=== PATIENT | male | born 1960 | race Caucasian/White ===

== ENCOUNTER 2018-11-06 19:18 | Inpatient (IN) | payer OTHER ==
[~2018-11-06] VITALS: Ht 180.3 cm; Wt 79.0 kg
[2018-11-06] MEDS ORDERED: IV NORMAL SALINE 500ML BAG 500 ML IV ONE (19:45)
[2018-11-06] MEDS ORDERED: fentaNYL PF VIAL 100 MCG/2 ML VIAL IV ONE (19:45)
[2018-11-06 19:52] LABS: BASO # 0.1 x10^3/uL (0.0-0.2); BASO % 1 % (0-3); EOS # 0.3 x10^3/uL (0.0-0.7); EOS % 3 % (0-3); HEMATOCRIT 41.9 % (39.0-53.0); HEMOGLOBIN 14.1 g/dL (13.0-17.5); LYMPH # 2.3 x10^3/uL (1.0-4.8); LYMPH % 19 % (24-48); MEAN CORPUSCULAR HEMOGLOBIN 31 pg (25-35); MEAN CORPUSCULAR HGB CONC 34 g/dL (31-37); MEAN CORPUSCULAR VOLUME 94 fL (79-100); MONO % 9 % (0-9); NEUT # 8.2 x10^3uL (1.8-7.7); NEUT % 69 % (31-73); PLATELET COUNT 328 x10^3/uL (140-400); RED BLOOD COUNT 4.48 x10^6/uL (4.30-5.70); RED CELL DISTRIBUTION WIDTH 13.8 % (11.5-14.5)
[2018-11-06 19:59] LABS: CALCIUM 8.6 mg/dL (8.5-10.1); CREATININE 1.1 mg/dL (0.7-1.3); GFR 68.3; POTASSIUM 3.7 mmol/L (3.5-5.1)
[2018-11-06] MEDS ORDERED: KETAMINE HCL IN NACL, ISO-OSM 50 MG/5 ML SYRINGE IV ONE (20:00)
[2018-11-06 20:02] LABS: PROTHROMBIN TIME PATIENT 12.8 SEC (11.7-14.0)
[2018-11-06 20:04] LABS: ALBUMIN/GLOBULIN RATIO 1.3 (1.0-1.7); TOTAL BILIRUBIN 0.4 mg/dL (0.2-1.0)
[2018-11-06] MEDS ORDERED: LIDOCAINE 2% 20 ML VIAL. ONE (20:18)
[2018-11-06] MEDS ORDERED: IV NORMAL SALINE 1000ML BAG 1,000 ML IV ONE (21:00)
[2018-11-06] MEDS ORDERED: LIDOCAINE 2% 20 ML VIAL. IJ ONE (21:15)
[2018-11-06 22:00] VITALS: BP 137/72
--- NOTE | 2018-11-06 22:00 | NUR ---
pt admitted to room 109 from ED at this time. pt is alert and oriented x4, able to answer all admission questions without difficulty. VSS, on 2L/NC. chest tube noted to right side, draining serosanguineous fluid and hooked to suction at -20 mmHg upon arrival. c/o pain at chest tube site upon movement, Morphine given per PRN order. at bedside, both updated on plan of care, unit routines, diet and chest tube maintenance. both verbalize understanding. call light in reach, will continue to monitor.
[2018-11-06] MEDS ORDERED: ONDANSETRON PF 4 MG/2 ML VIAL. IV PRN (22:15)
[2018-11-06] MEDS: MORPHINE SULFATE 4 MG/ML VIAL. IV PRN (22:19)
[2018-11-06 23:00] VITALS: BP 118/59
--- NOTE | 2018-11-06 23:41 | RAD ---
PORTABLE CHEST 1V History: chest tube Comparison: Exam earlier the same day Findings: There is now a right chest tube. Evaluation for pneumothorax is limited in supine patient, possible trace residual right apical pneumothorax. There is fairly extensive gas in the right lateral chest wall soft tissues as well as neck soft tissues as seen previously. Heart size is stable. Impression: 1. There is now a right chest tube, possible trace residual right apical pneumothorax. There is again prominent gas in the right lateral chest and neck soft tissues. Electronically signed by: Abelardo Gauthier MD (11/06/2018 11:38 PM) [facility]
--- NOTE | 2018-11-06 23:43 | RAD ---
PORTABLE CHEST 1V History: TRAUMA FALL OFF LADDER Comparison: None. Findings: AP view of the chest is submitted. There is a lsufi-yd-wstemghw size right pneumothorax. There is extensive gas in the right lateral chest and neck soft tissues. There are displaced sixth and seventh rib fractures laterally. Heart size is within normal limits. Impression: 1. There is dhiti-pr-mifwhvhz right pneumothorax. There is extensive gas in the right lateral neck and chest wall soft tissues. There are displaced right lateral sixth and seventh rib fractures. Right chest tube has already been placed at time of interpretation of this exam. Electronically signed by: Abelardo Gauthier MD (11/06/2018 11:40 PM) [facility]
[2018-11-06] MEDS: IV NORMAL SALINE 1000ML BAG 1,000 ML IV SCH (23:48)
[2018-11-07] VITALS (24 sets, daily range): BP systolic 104–119; BP diastolic 52–80
[2018-11-07] MEDS: MORPHINE SULFATE 4 MG/ML VIAL. IV PRN ×3 (00:39→07:47)
--- NOTE | 2018-11-07 02:46 | PHYS DOC ---
Past Medical History Past Medical History: No Pertinent History Past Surgical History: Other Additional Past Surgical Histo: HYDROCELE,LEFT URETER TRANSPLANT Additional Information: PT SMOKES CIGARS Alcohol Use: Occasionally Drug Use: None Adult General Chief Complaint Chief Complaint: MECHANICAL FALL HPI HPI Patient is a 58 year old m p/w cc of fall four feet off a six foot ladder. landed directly on the right chest. pain severe worse with deep breathing sharp biba denies headache neck pain abdominal pain or leg pain. Review of Systems Review of Systems Constitutional: Denies fever or chills [] Eyes: Denies change in visual acuity, redness, or eye pain [] HENT: Denies nasal congestion or sore throat [] Cardiovascular: No additional information not addressed in HPI [] GI: Denies abdominal pain, nausea, vomiting, bloody stools or diarrhea [] Musculoskeletal: Integument: Denies rash or skin lesions [] Neurologic: Denies headache, focal weakness or sensory changes [] All other systems were reviewed and found to be within normal limits, except as documented in this note. Current Medications Current Medications Current Medications Medications (Trade) Dose Ordered Sig/Vic Start Time Stop Time Status Last Admin Dose Admin Fentanyl Citrate (Fentanyl 2ml Vial) 50 mcg 1X ONCE 11/06/18 19:45 11/06/18 19:46 DC 11/06/18 20:32 50 MCG Ketamine HCl (Ketamine) 50 mg 1X ONCE 11/06/18 20:00 11/06/18 20:01 DC 11/06/18 20:15 50 MG Lidocaine HCl 20 ml STK-MED ONCE 11/06/18 20:18 11/06/18 20:19 DC Sodium Chloride 500 ml @ 500 mls/hr 1X ONCE 11/06/18 19:45 11/06/18 20:44 DC 11/06/18 20:02 500 MLS/HR Allergies Allergies Allergies Coded Allergies Type Severity Reaction Last Updated Verified No Known Drug Allergies 11/06/18 No Physical Exam Physical Exam Constitutional: Well developed, well nourished, modreate distress, non-toxic appearance. [] HENT: Normocephalic, atraumatic, bilateral external ears normal, oropharynx moist, no oral exudates, nose normal. [] Eyes: PERRLA, EOMI, conjunctiva normal, no discharge. [] Neck: Normal range of motion, no tenderness, supple, no stridor. [] Cardiovascular:Heart rate regular rhythm, no murmur [] Lungs & Thorax: decreased breath sounds right side. there is palpable bony crepitus, there is subq crepitus right chest. Abdomen: Bowel sounds normal, soft, no tenderness, no masses, no pulsatile masses. [] Skin: Warm, dry, no erythema, no rash. [] Back: ttp noted right posterior back in rib area. Extremities: No tenderness, no cyanosis, no clubbing, ROM intact, no edema. [] Neurologic: Alert and oriented X 3, normal motor function, normal sensory function, no focal deficits noted. [] Psychologic: Affect normal, judgement normal, mood normal. [] Current Patient Data Vital Signs Vital Signs Date Time Temp Pulse Resp B/P (MAP) Pulse Ox O2 Delivery O2 Flow Rate FiO2 11/06/18 20:45 96 100 11/06/18 20:32 18 NonRebreather Mask 12.0 11/06/18 19:18 97.0 127/66 (86) 97.0 Lab Values Laboratory Tests Test 11/06/18 19:33 White Blood Count 12.0 x10^3/uL (4.0-11.0) H Red Blood Count 4.48 x10^6/uL (4.30-5.70) Hemoglobin 14.1 g/dL (13.0-17.5) Hematocrit 41.9 % (39.0-53.0) Mean Corpuscular Volume 94 fL (79-100) Mean Corpuscular Hemoglobin 31 pg (25-35) Mean Corpuscular Hemoglobin Concent 34 g/dL (31-37) Red Cell Distribution Width 13.8 % (11.5-14.5) Platelet Count 328 x10^3/uL (140-400) Neutrophils (%) (Auto) 69 % (31-73) Lymphocytes (%) (Auto) 19 % (24-48) L Monocytes (%) (Auto) 9 % (0-9) Eosinophils (%) (Auto) 3 % (0-3) Basophils (%) (Auto) 1 % (0-3) Neutrophils # (Auto) 8.2 x10^3uL (1.8-7.7) H Lymphocytes # (Auto) 2.3 x10^3/uL (1.0-4.8) Monocytes # (Auto) 1.0 x10^3/uL (0.0-1.1) Eosinophils # (Auto) 0.3 x10^3/uL (0.0-0.7) Basophils # (Auto) 0.1 x10^3/uL (0.0-0.2) Prothrombin Time 12.8 SEC (11.7-14.0) Prothrombin Time INR 1.0 (0.8-1.1) Sodium Level 144 mmol/L (136-145) Potassium Level 3.7 mmol/L (3.5-5.1) Chloride Level 103 mmol/L (98-107) Carbon Dioxide Level 32 mmol/L (21-32) Anion Gap 9 (6-14) Blood Urea Nitrogen 12 mg/dL (8-26) Creatinine 1.1 mg/dL (0.7-1.3) Estimated GFR (Cockcroft-Gault) 68.3 BUN/Creatinine Ratio 11 (6-20) Glucose Level 152 mg/dL (70-99) H Calcium Level 8.6 mg/dL (8.5-10.1) Total Bilirubin 0.4 mg/dL (0.2-1.0) Aspartate Amino Transferase (AST) 108 U/L (15-37) H Alanine Aminotransferase (ALT) 83 U/L (16-63) H Alkaline Phosphatase 47 U/L (46-116) Total Protein 7.0 g/dL (6.4-8.2) Albumin 4.0 g/dL (3.4-5.0) Albumin/Globulin Ratio 1.3 (1.0-1.7) Laboratory Tests 11/06/18 19:33 Laboratory Tests 11/06/18 19:33 EKG EKG [] Radiology/Procedures Radiology/Procedures [] Impressions: Impression: 1. There is yywqw-yb-tpulkyzt right pneumothorax. There is extensive gas in the right lateral neck and chest wall soft tissues. There are displaced right lateral sixth and seventh rib fractures. Right chest tube has already been placed at time of interpretation of this exam. Electronically signed by: Melodie Brandt MD (11/06/2018 11:40 PM) [facility] DICTATED and SIGNED BY: MELODIE BRANDT MD DATE: 11/06/18 4962 Impression: 1. There is now a right chest tube, possible trace residual right apical pneumothorax. There is again prominent gas in the right lateral chest and neck soft tissues. Electronically signed by: Melodie Brandt MD (11/06/2018 11:38 PM) [facility] DICTATED and SIGNED BY: MELODIE BRANDT MD DATE: 11/06/18 9258 Course & Med Decision Making Course & Med Decision Making Pertinent Labs and Imaging studies reviewed. (See chart for details) []Procedure note: Informed consent was obtained and it was performed thoracostomy procedure. Area prepped and draped in usual sterile fashion right chest wall, septic and his lidocaine was used for anesthesia. 50 g iv ketamine was used for pain control prior to the procedure. fourth intercostal space inserted a 24 telugu chest tube in the usual fashion into the right pleural space sutured in place And with appropriate sterile dressing attached to suction repeat chest x-ray confirmed placement of chest tube as well as reexpansion of the lung. patient tolerated quite well overall. I spoke with Dr. velarde was recommended ICU admission overnight for monitoring and will follow-up with the patient. I spoke to Dr. Austin for admission to the hospital for this patient as well. I reevaluated him after the chest tube and the patient was feeling much better. Patient has no abdominal tenderness no abdominal pain and NO signs of head injury he did not hit his head he has no headache no neck tenderness at all. It appears that the rib and pneumothorax injury appears to be isolated at this time vital signs are normal after chest tube placement on reevaluation. Dragon Disclaimer Dragon Disclaimer This electronic medical record was generated, in whole or in part, using a voice recognition dictation system. Departure Departure Impression: Primary Impression: Pneumothorax Additional Impression: Rib fractures Disposition: ADMITTED INPATIENT Admitting Physician: Michelle Austin Condition: STABLE Referrals: AVEL KRUSE (PCP) Problem Qualifiers NELSON MURPHY MD Nov 07, 2018 02:46
[2018-11-07 05:36] LABS: BASO % 0 % (0-3); EOS # 0.1 x10^3/uL (0.0-0.7); EOS % 1 % (0-3); HEMATOCRIT 37.7 % (39.0-53.0); HEMOGLOBIN 12.8 g/dL (13.0-17.5); LYMPH # 1.6 x10^3/uL (1.0-4.8); LYMPH % 15 % (24-48); MEAN CORPUSCULAR HEMOGLOBIN 32 pg (25-35); MEAN CORPUSCULAR HGB CONC 34 g/dL (31-37); MEAN CORPUSCULAR VOLUME 93 fL (79-100); MONO # 1.5 x10^3/uL (0.0-1.1); MONO % 14 % (0-9); NEUT # 7.3 x10^3uL (1.8-7.7); NEUT % 70 % (31-73); PLATELET COUNT 259 x10^3/uL (140-400); RED BLOOD COUNT 4.04 x10^6/uL (4.30-5.70); RED CELL DISTRIBUTION WIDTH 14.1 % (11.5-14.5); WHITE BLOOD COUNT 10.5 x10^3/uL (4.0-11.0)
[2018-11-07] MEDS ORDERED: IOHEXOL 300 MG/ML 100ML VIAL. IV ONE (09:00)
[2018-11-07] MEDS ORDERED: IOHEXOL 240 MG/ML 50ML VIAL. PO ONE (09:00)
--- NOTE | 2018-11-07 09:07 | PDOC2 ---
CONSULT Date of Consult Date of Consult DATE: 11/07/18 TIME: 08:59 Reason for Consult Reason for Consult: Right PTX, multiple rib fractures Referring Physician Referring Physician: Norman Identification/Chief Complaint Chief Complaint right chest pain Source Source: Chart review, Patient History of Present Illness Reason for Visit: 58 yo M s/p fall off ladder, approximately 4 feet on 11/06 at approximately 1700. Pt landed on his ladder directly on right chest with sudden pain. No LOC. No head trauma or abd pain or extremity pain. This AM pt reports soreness , but otherwise doing well. Past Medical History Cardiovascular: No pertinent hx Past Surgical History Past Surgical History: Other (ureter reimplantation as child, unknown etiology) Family History Family History: No Significant Social History <1 pack per day (cigars) ALCOHOL: rare Current Problem List Problem List Problems Medical Problems: (1) Rib fractures Status: Acute Current Medications Current Medications Current Medications Sodium Chloride 500 ml @ 500 mls/hr 1X ONCE IV Last administered on at 20:02; Start 11/06/18 at 19:45; Stop 11/06/18 at 20:44; Status DC Fentanyl Citrate (Fentanyl 2ml Vial) 50 mcg 1X ONCE IV Last administered on at 20:32; Start 11/06/18 at 19:45; Stop 11/06/18 at 19:46; Status DC Ketamine HCl (Ketamine) 50 mg 1X ONCE IV Last administered on 11/06/18at 20:15 ; Start 11/06/18 at 20:00; Stop 11/06/18 at 20:01; Status DC Lidocaine HCl 20 ml STK-MED ONCE .ROUTE ; Start 11/06/18 at 20:18; Stop at 20:19; Status DC Sodium Chloride 1,000 ml @ 1,000 mls/hr 1X ONCE IV Last administered on at 20:14; Start 11/06/18 at 21:00; Stop 11/06/18 at 21:59; Status DC Lidocaine HCl 40 ml 1X ONCE IJ Last administered on 11/06/18at 20:16; Start at 21:15; Stop 11/06/18 at 21:16; Status DC Ondansetron HCl (Zofran) 4 mg PRN Q8HRS PRN IV NAUSEA/VOMITING; Start 11/06/18 at 22:15; Stop 11/07/18 at 22:14 Morphine Sulfate (Morphine Sulfate) 4 mg PRN Q2HR PRN IV PAIN Last administered on 11/07/18at 07:47; Start 11/06/18 at 22:15; Stop 11/07/18 at 22:14 Sodium Chloride 1,000 ml @ 75 mls/hr [id number] IV Last administered on at 23:48; Start 11/06/18 at 22:15; Stop 11/07/18 at 22:14 Iohexol (Omnipaque 240 Mg/ml) 30 ml 1X ONCE PO ; Start 11/07/18 at 09:00; Stop 11/07/18 at 09:01 Iohexol (Omnipaque 300 Mg/ml) 75 ml 1X ONCE IV ; Start 11/07/18 at 09:00; Stop 11/07/18 at 09:01 Allergies Allergies: Coded Allergies: No Known Drug Allergies (Unverified , 11/06/18) ROS Respiratory: YES: Pleuritic Pain Physical Exam General: Alert, Oriented X3, Cooperative, No acute distress HEENT: Atraumatic Lungs: Normal air movement, Other (right tube in place, TTP) Abdomen: Soft, No tenderness Extremities: No clubbing, No cyanosis Skin: No rashes, No breakdown Neuro: Normal speech, Sensation intact Psych/Mental Status: Mental status NL, Mood NL Vitals VITALS Vital Signs Date Time Temp Pulse Resp B/P (MAP) Pulse Ox O2 Delivery O2 Flow Rate FiO2 11/07/18 08:20 96 Nasal Cannula 2.0 11/07/18 07:30 99.3 71 19 108/60 (76) 99.3 Labs Labs Laboratory Tests Test 11/06/18 19:33 11/07/18 04:00 White Blood Count 12.0 x10^3/uL (4.0-11.0) 10.5 x10^3/uL (4.0-11.0) Red Blood Count 4.48 x10^6/uL (4.30-5.70) 4.04 x10^6/uL (4.30-5.70) Hemoglobin 14.1 g/dL (13.0-17.5) 12.8 g/dL (13.0-17.5) Hematocrit 41.9 % (39.0-53.0) 37.7 % (39.0-53.0) Mean Corpuscular Volume 94 fL (79-100) 93 fL (79-100) Mean Corpuscular Hemoglobin 31 pg (25-35) 32 pg (25-35) Mean Corpuscular Hemoglobin Concent 34 g/dL (31-37) 34 g/dL (31-37) Red Cell Distribution Width 13.8 % (11.5-14.5) 14.1 % (11.5-14.5) Platelet Count 328 x10^3/uL (140-400) 259 x10^3/uL (140-400) Neutrophils (%) (Auto) 69 % (31-73) 70 % (31-73) Lymphocytes (%) (Auto) 19 % (24-48) 15 % (24-48) Monocytes (%) (Auto) 9 % (0-9) 14 % (0-9) Eosinophils (%) (Auto) 3 % (0-3) 1 % (0-3) Basophils (%) (Auto) 1 % (0-3) 0 % (0-3) Neutrophils # (Auto) 8.2 x10^3uL (1.8-7.7) 7.3 x10^3uL (1.8-7.7) Lymphocytes # (Auto) 2.3 x10^3/uL (1.0-4.8) 1.6 x10^3/uL (1.0-4.8) Monocytes # (Auto) 1.0 x10^3/uL (0.0-1.1) 1.5 x10^3/uL (0.0-1.1) Eosinophils # (Auto) 0.3 x10^3/uL (0.0-0.7) 0.1 x10^3/uL (0.0-0.7) Basophils # (Auto) 0.1 x10^3/uL (0.0-0.2) 0.0 x10^3/uL (0.0-0.2) Prothrombin Time 12.8 SEC (11.7-14.0) Prothromb Time International Ratio 1.0 (0.8-1.1) Sodium Level 144 mmol/L (136-145) Potassium Level 3.7 mmol/L (3.5-5.1) Chloride Level 103 mmol/L (98-107) Carbon Dioxide Level 32 mmol/L (21-32) Anion Gap 9 (6-14) Blood Urea Nitrogen 12 mg/dL (8-26) Creatinine 1.1 mg/dL (0.7-1.3) Estimated GFR (Cockcroft-Gault) 68.3 BUN/Creatinine Ratio 11 (6-20) Glucose Level 152 mg/dL (70-99) Calcium Level 8.6 mg/dL (8.5-10.1) Total Bilirubin 0.4 mg/dL (0.2-1.0) Aspartate Amino Transf (AST/SGOT) 108 U/L (15-37) Alanine Aminotransferase (ALT/SGPT) 83 U/L (16-63) Alkaline Phosphatase 47 U/L (46-116) Total Protein 7.0 g/dL (6.4-8.2) Albumin 4.0 g/dL (3.4-5.0) Albumin/Globulin Ratio 1.3 (1.0-1.7) Laboratory Tests Test 11/06/18 19:33 11/07/18 04:00 White Blood Count 12.0 x10^3/uL (4.0-11.0) 10.5 x10^3/uL (4.0-11.0) Red Blood Count 4.48 x10^6/uL (4.30-5.70) 4.04 x10^6/uL (4.30-5.70) Hemoglobin 14.1 g/dL (13.0-17.5) 12.8 g/dL (13.0-17.5) Hematocrit 41.9 % (39.0-53.0) 37.7 % (39.0-53.0) Mean Corpuscular Volume 94 fL (79-100) 93 fL (79-100) Mean Corpuscular Hemoglobin 31 pg (25-35) 32 pg (25-35) Mean Corpuscular Hemoglobin Concent 34 g/dL (31-37) 34 g/dL (31-37) Red Cell Distribution Width 13.8 % (11.5-14.5) 14.1 % (11.5-14.5) Platelet Count 328 x10^3/uL (140-400) 259 x10^3/uL (140-400) Neutrophils (%) (Auto) 69 % (31-73) 70 % (31-73) Lymphocytes (%) (Auto) 19 % (24-48) 15 % (24-48) Monocytes (%) (Auto) 9 % (0-9) 14 % (0-9) Eosinophils (%) (Auto) 3 % (0-3) 1 % (0-3) Basophils (%) (Auto) 1 % (0-3) 0 % (0-3) Neutrophils # (Auto) 8.2 x10^3uL (1.8-7.7) 7.3 x10^3uL (1.8-7.7) Lymphocytes # (Auto) 2.3 x10^3/uL (1.0-4.8) 1.6 x10^3/uL (1.0-4.8) Monocytes # (Auto) 1.0 x10^3/uL (0.0-1.1) 1.5 x10^3/uL (0.0-1.1) Eosinophils # (Auto) 0.3 x10^3/uL (0.0-0.7) 0.1 x10^3/uL (0.0-0.7) Basophils # (Auto) 0.1 x10^3/uL (0.0-0.2) 0.0 x10^3/uL (0.0-0.2) Prothrombin Time 12.8 SEC (11.7-14.0) Prothromb Time International Ratio 1.0 (0.8-1.1) Sodium Level 144 mmol/L (136-145) Potassium Level 3.7 mmol/L (3.5-5.1) Chloride Level 103 mmol/L (98-107) Carbon Dioxide Level 32 mmol/L (21-32) Anion Gap 9 (6-14) Blood Urea Nitrogen 12 mg/dL (8-26) Creatinine 1.1 mg/dL (0.7-1.3) Estimated GFR (Cockcroft-Gault) 68.3 BUN/Creatinine Ratio 11 (6-20) Glucose Level 152 mg/dL (70-99) Calcium Level 8.6 mg/dL (8.5-10.1) Total Bilirubin 0.4 mg/dL (0.2-1.0) Aspartate Amino Transf (AST/SGOT) 108 U/L (15-37) Alanine Aminotransferase (ALT/SGPT) 83 U/L (16-63) Alkaline Phosphatase 47 U/L (46-116) Total Protein 7.0 g/dL (6.4-8.2) Albumin 4.0 g/dL (3.4-5.0) Albumin/Globulin Ratio 1.3 (1.0-1.7) Images Images CXR demonstrated right 6/7 rib fracture, PTX, resolved with tube placement Assessment/Plan Assessment/Plan R PTX, rib fx, multiple agree with chest tube and pain control will obtain CT C/A/P to evaluate for occult injury, given mechanism if no occult injury, plan transfer to floor and ADAT Thanks for consult! CAIT MARTINEZ MD Nov 07, 2018 09:07
--- NOTE | 2018-11-07 10:12 | PDOC1 ---
History and Physical Date of Admission Date of Admission DATE: 11/07/18 TIME: 10:12 Identification/Chief Complaint Chief Complaint HPI HPI Patient is a 58 year old m p/w cc of fall four feet off a six foot ladder. landed directly on the right chest. pain severe worse with deep breathing// prominent gas in the right lateral chest and neck soft tissues. There is ngsq-jg-epnolgoh left hydroureteronephrosis, no obstructive calculus, distal ureter in the pelvis difficult to visualize. Distal obstructing ureteral mass or stricture are considerations. There is pneumomediastinum greater superiorly. There is trace right apical pneumothorax. There is prominent gas in the soft tissues of the right chest also extending posteriorly into the upper back as well as the inferior bilateral neck right greater than left. There is small dependent right pleural effusion, adjacent consolidation and atelectasis There is dilatation of the ascending thoracic aorta about 4.7 cm, no intraluminal flap seen [id number] left hydronephrosis and hydroureter, hydroureter to the level of the pelvis, more distal left ureter difficult to confidently visualize. PLAN PULM consult CTS consult urology consult ua renal son eval hydronephrosis keep in icu 40 min cc time Past Medical History Past Medical History Past Medical History Past Medical History Past Medical History: No Pertinent History Past Surgical History: Other Additional Past Surgical Histo: HYDROCELE,LEFT URETER TRANSPLANT Additional Information: PT SMOKES CIGARS Alcohol Use: Occasionally Drug Use: None family hx copd Cardiovascular: No pertinent hx Past Surgical History Past Surgical History: Other (ureter reimplantation as child, unknown etiology) Family History Family History: No Significant Social History Smoke: <1 pack per day (cigars) ALCOHOL: occassional Drugs: None Current Problem List Problem List Problems Medical Problems: (1) Rib fractures Status: Acute Current Medications Current Medications Current Medications Sodium Chloride 500 ml @ 500 mls/hr 1X ONCE IV Last administered on at 20:02; Start 11/06/18 at 19:45; Stop 11/06/18 at 20:44; Status DC Fentanyl Citrate (Fentanyl 2ml Vial) 50 mcg 1X ONCE IV Last administered on at 20:32; Start 11/06/18 at 19:45; Stop 11/06/18 at 19:46; Status DC Ketamine HCl (Ketamine) 50 mg 1X ONCE IV Last administered on 11/06/18at 20:15 ; Start 11/06/18 at 20:00; Stop 11/06/18 at 20:01; Status DC Lidocaine HCl 20 ml STK-MED ONCE .ROUTE ; Start 11/06/18 at 20:18; Stop at 20:19; Status DC Sodium Chloride 1,000 ml @ 1,000 mls/hr 1X ONCE IV Last administered on at 20:14; Start 11/06/18 at 21:00; Stop 11/06/18 at 21:59; Status DC Lidocaine HCl 40 ml 1X ONCE IJ Last administered on 11/06/18at 20:16; Start at 21:15; Stop 11/06/18 at 21:16; Status DC Ondansetron HCl (Zofran) 4 mg PRN Q8HRS PRN IV NAUSEA/VOMITING; Start 11/06/18 at 22:15; Stop 11/07/18 at 22:14 Morphine Sulfate (Morphine Sulfate) 4 mg PRN Q2HR PRN IV PAIN Last administered on 11/07/18at 07:47; Start 11/06/18 at 22:15; Stop 11/07/18 at 22:14 Sodium Chloride 1,000 ml @ 75 mls/hr [id number] IV Last administered on at 23:48; Start 11/06/18 at 22:15; Stop 11/07/18 at 22:14 Iohexol (Omnipaque 240 Mg/ml) 30 ml 1X ONCE PO ; Start 11/07/18 at 09:00; Stop 11/07/18 at 09:01; Status DC Iohexol (Omnipaque 300 Mg/ml) 75 ml 1X ONCE IV ; Start 11/07/18 at 09:00; Stop 11/07/18 at 09:01; Status DC Allergies Allergies: Coded Allergies: No Known Drug Allergies (Unverified , 11/06/18) ROS Review of System Review of Systems Review of Systems Constitutional: Denies fever or chills [] Eyes: Denies change in visual acuity, redness, or eye pain [] HENT: Denies nasal congestion or sore throat [] Cardiovascular: No additional information not addressed in HPI [] GI: Denies abdominal pain, nausea, vomiting, bloody stools or diarrhea [] Musculoskeletal: Integument: Denies rash or skin lesions [] Neurologic: Denies headache, focal weakness or sensory changes [] 14 pt systems were reviewed and found to be within normal limits, except as documented in this note. General: No: Chills, Night Sweats, Fatigue, Malaise, Appetite, Other PSYCHOLOGICAL ROS: No: Anxiety, Behavioral Disorder, Concentration difficultie , Decreased libido, Depression, Disorientation, Hallucinations, Hostility, Irritablity, Memory difficulties, Mood Swings, Obsessive thoughts, Physical abuse, Sexual abuse, Sleep disturbances, Suicidal ideation, Other Eyes: No Blurry vision, No Decreased vision, No Double vision, No Dry eyes, No Excessive tearing, No Eye Pain, No Itchy Eyes, No Loss of vision, No Photophobia , No Scotomata, No Uses contacts, No Uses glasses, No Other HEENT: No: Heacaches, Visual Changes, Hearing change, Nasal congestion, Nasal discharge, Oral lesions, Sinus pain, Sore Throat, Epistaxis, Sneezing, Snoring, Tinnitus, Vertigo, Vocal changes, Other Respiratory: YES: Pleuritic Pain Cardiovascular: yes Chest Pain Gastrointestinal: No Nausea, No Vomiting, No Abdominal Pain, No Diarrhea, No Constipation, No Melena, No Hematochezia, No Other Genitourinary: No Dysuria, No Frequency, No Incontinence, No Hematuria, No Retention, No Discharge, No Urgency, No Pain, No Flank Pain, No Other, No , No , No , No , No , No , No Physical Exam Physical Exam Physical Exam Physical Exam Constitutional: Well developed, well nourished, modreate distress, non-toxic appearance. [] HENT: Normocephalic, atraumatic, bilateral external ears normal, oropharynx moist, no oral exudates, nose normal. [] Eyes: PERRLA, EOMI, conjunctiva normal, no discharge. [] Neck: Normal range of motion, no tenderness, supple, no stridor. [] Cardiovascular:Heart rate regular rhythm, no murmur [] Lungs & Thorax: decreased breath sounds right side. there is palpable bony crepitus, there is subq crepitus right chest. Abdomen: Bowel sounds normal, soft, no tenderness, no masses, no pulsatile masses. [] Skin: Warm, dry, no erythema, no rash. [] Back: ttp noted right posterior back in rib area. Extremities: No tenderness, no cyanosis, no clubbing, ROM intact, no edema. [] Neurologic: Alert and oriented X 3, normal motor function, normal sensory function, no focal deficits noted. [] Psychologic: Affect normal, judgement normal, mood normal. prominent gas in the right lateral chest and neck soft tissues. [] General: Alert, Oriented X3, Cooperative, moderate distress HEENT: EOMI, Mucous membr. moist/pink Heart: RRR Abdomen: Normal bowel sounds, Soft PELVIC: Examination not indicated Extremities: No cyanosis Neuro: Normal speech, Sensation intact, Cranial nerves 3-12 NL Psych/Mental Status: Mental status NL, Mood NL Vitals Vitals Vital Signs Date Time Temp Pulse Resp B/P (MAP) Pulse Ox O2 Delivery O2 Flow Rate FiO2 11/07/18 09:24 99.3 72 21 119/74 (89) 97 Nasal Cannula 2.0 99.3 Labs Labs Laboratory Tests Test 11/06/18 19:33 11/07/18 04:00 White Blood Count 12.0 x10^3/uL (4.0-11.0) 10.5 x10^3/uL (4.0-11.0) Red Blood Count 4.48 x10^6/uL (4.30-5.70) 4.04 x10^6/uL (4.30-5.70) Hemoglobin 14.1 g/dL (13.0-17.5) 12.8 g/dL (13.0-17.5) Hematocrit 41.9 % (39.0-53.0) 37.7 % (39.0-53.0) Mean Corpuscular Volume 94 fL (79-100) 93 fL (79-100) Mean Corpuscular Hemoglobin 31 pg (25-35) 32 pg (25-35) Mean Corpuscular Hemoglobin Concent 34 g/dL (31-37) 34 g/dL (31-37) Red Cell Distribution Width 13.8 % (11.5-14.5) 14.1 % (11.5-14.5) Platelet Count 328 x10^3/uL (140-400) 259 x10^3/uL (140-400) Neutrophils (%) (Auto) 69 % (31-73) 70 % (31-73) Lymphocytes (%) (Auto) 19 % (24-48) 15 % (24-48) Monocytes (%) (Auto) 9 % (0-9) 14 % (0-9) Eosinophils (%) (Auto) 3 % (0-3) 1 % (0-3) Basophils (%) (Auto) 1 % (0-3) 0 % (0-3) Neutrophils # (Auto) 8.2 x10^3uL (1.8-7.7) 7.3 x10^3uL (1.8-7.7) Lymphocytes # (Auto) 2.3 x10^3/uL (1.0-4.8) 1.6 x10^3/uL (1.0-4.8) Monocytes # (Auto) 1.0 x10^3/uL (0.0-1.1) 1.5 x10^3/uL (0.0-1.1) Eosinophils # (Auto) 0.3 x10^3/uL (0.0-0.7) 0.1 x10^3/uL (0.0-0.7) Basophils # (Auto) 0.1 x10^3/uL (0.0-0.2) 0.0 x10^3/uL (0.0-0.2) Prothrombin Time 12.8 SEC (11.7-14.0) Prothromb Time International Ratio 1.0 (0.8-1.1) Sodium Level 144 mmol/L (136-145) Potassium Level 3.7 mmol/L (3.5-5.1) Chloride Level 103 mmol/L (98-107) Carbon Dioxide Level 32 mmol/L (21-32) Anion Gap 9 (6-14) Blood Urea Nitrogen 12 mg/dL (8-26) Creatinine 1.1 mg/dL (0.7-1.3) Estimated GFR (Cockcroft-Gault) 68.3 BUN/Creatinine Ratio 11 (6-20) Glucose Level 152 mg/dL (70-99) Calcium Level 8.6 mg/dL (8.5-10.1) Total Bilirubin 0.4 mg/dL (0.2-1.0) Aspartate Amino Transf (AST/SGOT) 108 U/L (15-37) Alanine Aminotransferase (ALT/SGPT) 83 U/L (16-63) Alkaline Phosphatase 47 U/L (46-116) Total Protein 7.0 g/dL (6.4-8.2) Albumin 4.0 g/dL (3.4-5.0) Albumin/Globulin Ratio 1.3 (1.0-1.7) Laboratory Tests Test 11/06/18 19:33 11/07/18 04:00 White Blood Count 12.0 x10^3/uL (4.0-11.0) 10.5 x10^3/uL (4.0-11.0) Red Blood Count 4.48 x10^6/uL (4.30-5.70) 4.04 x10^6/uL (4.30-5.70) Hemoglobin 14.1 g/dL (13.0-17.5) 12.8 g/dL (13.0-17.5) Hematocrit 41.9 % (39.0-53.0) 37.7 % (39.0-53.0) Mean Corpuscular Volume 94 fL (79-100) 93 fL (79-100) Mean Corpuscular Hemoglobin 31 pg (25-35) 32 pg (25-35) Mean Corpuscular Hemoglobin Concent 34 g/dL (31-37) 34 g/dL (31-37) Red Cell Distribution Width 13.8 % (11.5-14.5) 14.1 % (11.5-14.5) Platelet Count 328 x10^3/uL (140-400) 259 x10^3/uL (140-400) Neutrophils (%) (Auto) 69 % (31-73) 70 % (31-73) Lymphocytes (%) (Auto) 19 % (24-48) 15 % (24-48) Monocytes (%) (Auto) 9 % (0-9) 14 % (0-9) Eosinophils (%) (Auto) 3 % (0-3) 1 % (0-3) Basophils (%) (Auto) 1 % (0-3) 0 % (0-3) Neutrophils # (Auto) 8.2 x10^3uL (1.8-7.7) 7.3 x10^3uL (1.8-7.7) Lymphocytes # (Auto) 2.3 x10^3/uL (1.0-4.8) 1.6 x10^3/uL (1.0-4.8) Monocytes # (Auto) 1.0 x10^3/uL (0.0-1.1) 1.5 x10^3/uL (0.0-1.1) Eosinophils # (Auto) 0.3 x10^3/uL (0.0-0.7) 0.1 x10^3/uL (0.0-0.7) Basophils # (Auto) 0.1 x10^3/uL (0.0-0.2) 0.0 x10^3/uL (0.0-0.2) Prothrombin Time 12.8 SEC (11.7-14.0) Prothromb Time International Ratio 1.0 (0.8-1.1) Sodium Level 144 mmol/L (136-145) Potassium Level 3.7 mmol/L (3.5-5.1) Chloride Level 103 mmol/L (98-107) Carbon Dioxide Level 32 mmol/L (21-32) Anion Gap 9 (6-14) Blood Urea Nitrogen 12 mg/dL (8-26) Creatinine 1.1 mg/dL (0.7-1.3) Estimated GFR (Cockcroft-Gault) 68.3 BUN/Creatinine Ratio 11 (6-20) Glucose Level 152 mg/dL (70-99) Calcium Level 8.6 mg/dL (8.5-10.1) Total Bilirubin 0.4 mg/dL (0.2-1.0) Aspartate Amino Transf (AST/SGOT) 108 U/L (15-37) Alanine Aminotransferase (ALT/SGPT) 83 U/L (16-63) Alkaline Phosphatase 47 U/L (46-116) Total Protein 7.0 g/dL (6.4-8.2) Albumin 4.0 g/dL (3.4-5.0) Albumin/Globulin Ratio 1.3 (1.0-1.7) Images Images PROCEDURE: CT CHEST ABD PELVIS W/CONTRAST CT CHEST ABD PELVIS W/CONTRAST Indication: CHEST PAIN AFTER 4FT FALL YESTERDAY Technique: Postcontrast CT imaging was performed of the chest, abdomen, pelvis, multiplanar reconstruction images submitted. Oral contrast was given. One or more of the following individualized dose reduction techniques were utilized for this examination: 1. Automated exposure control 2. Adjustment of the mA and/or kV according to patient size 3. Use of iterative reconstruction technique. Comparison: None other than chest radiograph November 06, 2018. CHEST: Findings: There is right chest tube. There is pneumomediastinum greater superiorly. There is trace right apical pneumothorax. There is prominent gas in the soft tissues of the right chest also extending posteriorly into the upper back as well as the inferior bilateral neck right greater than left. There is small dependent right pleural effusion, adjacent consolidation and atelectasis greater near the lung base of the right lower lobe. There is displaced and comminuted right lateral fifth rib fracture, fragment protruding more medially by about 0.6 cm, adjacent mild gas and parenchymal abnormality. There are also displaced right lateral sixth and seventh rib fractures with displacement of the more proximal fragments by one shaft width medially, some overriding of the fracture fragments. There are nondisplaced right posterior seventh and sixth rib fractures. There is displaced right posterior eighth rib fracture, more distal fragment displaced anteriorly by at least three quarters shaft width. There is dilatation of the ascending thoracic aorta about 4.7 cm, no intraluminal flap. There is no focal periaortic fluid collection. There is mild coronary calcification. Thoracic vertebral body stature is maintained. IMPRESSION: 1. There are right fifth through eighth rib fractures with displacement and overriding of fracture fragments of the sixth and seventh ribs as described, also nondisplaced separate fractures of right posterior sixth and seventh ribs. There is prominent gas in the soft tissues of the right chest also extending into the neck. There is superior pneumomediastinum. There is trace right pneumothorax, right chest tube present. There is small right pleural effusion, also some atelectasis lower lobes bilaterally greater on the right. There is also lung parenchymal abnormality near the displaced rib fractures likely component of contusion/laceration. 2. There is dilatation ascending thoracic aorta about 4.7 cm. Abdomen pelvis: FINDINGS: No focal abnormality is identified of the liver, spleen, pancreas. Gallbladder is present without obvious intraluminal abnormality by CT. There is no adrenal nodularity. There is [id number]-[id number]-[id number] left hydronephrosis and hydroureter, hydroureter to the level of the pelvis, more distal left ureter difficult to confidently visualize. No ureteral calculus is identified. There is no right hydronephrosis. There is distention of the urinary bladder. Bowel is not significantly dilated. There is no free fluid or free air. There is no appreciable bowel wall thickening. Lumbar vertebral body stature and AP alignment are maintained. There is bilateral L3 spondylolysis likely chronic as there is sclerosis at margins, no significant spondylolisthesis. There is mild degenerative disc disease and spondylosis L3-4 and to lesser degree at L4-L5. IMPRESSION: 1. There is nynq-ps-ahialmne left hydroureteronephrosis, no obstructive calculus, distal ureter in the pelvis difficult to visualize. Distal obstructing ureteral mass or stricture are considerations. There is distention of urinary bladder. 2. There is likely chronic bilateral L3 spondylolysis, no significant spondylolisthesis. Electronically signed by: Abelardo Gauthier MD (11/07/2018 11:02 AM) [facility] PORTABLE CHEST 1V History: chest tube Comparison: Exam earlier the same day Findings: There is now a right chest tube. Evaluation for pneumothorax is limited in supine patient, possible trace residual right apical pneumothorax. There is fairly extensive gas in the right lateral chest wall soft tissues as well as neck soft tissues as seen previously. Heart size is stable. Impression: 1. There is now a right chest tube, possible trace residual right apical pneumothorax. There is again prominent gas in the right lateral chest and neck soft tissues. Electronically signed by: Abelardo Gauthier MD (11/06/2018 11:38 PM) [facility] VTE Prophylaxis Ordered VTE Prophylaxis Devices: No VTE Pharmacological Prophylaxi: Yes Assessment/Plan Assessment/Plan Assessment/Plan R PTX, rib fx, multiple pneumomediastinum hydronephrosis There is [id number] left hydroureteronephrosis, no obstructive calculus, distal ureter in the pelvis difficult to visualize. Distal obstructing ureteral mass or stricture are considerations. There is pneumomediastinum greater superiorly. There is trace right apical pneumothorax. There is prominent gas in the soft tissues of the right chest also extending posteriorly into the upper back as well as the inferior bilateral neck right greater than left. There is small dependent right pleural effusion, adjacent consolidation and atelectasis There is dilatation of the ascending thoracic aorta about 4.7 cm, no intraluminal flap seen [id number] left hydronephrosis and hydroureter, hydroureter to the level of the pelvis, more distal left ureter difficult to confidently visualize. PLAN PULM consult CTS consult urology consult ua renal sono eval hydronephrosis keep in icu DVT prophylaxis ECHO CHEST TUBE PER SURGERY 40 min cc time MARYAN MESSINA MD Nov 07, 2018 10:12
--- NOTE | 2018-11-07 11:06 | RAD ---
CT CHEST ABD PELVIS W/CONTRAST Indication: CHEST PAIN AFTER 4FT FALL YESTERDAY Technique: Postcontrast CT imaging was performed of the chest, abdomen, pelvis, multiplanar reconstruction images submitted. Oral contrast was given. One or more of the following individualized dose reduction techniques were utilized for this examination: 1. Automated exposure control 2. Adjustment of the mA and/or kV according to patient size 3. Use of iterative reconstruction technique. Comparison: None other than chest radiograph November 06, 2018. CHEST: Findings: There is right chest tube. There is pneumomediastinum greater superiorly. There is trace right apical pneumothorax. There is prominent gas in the soft tissues of the right chest also extending posteriorly into the upper back as well as the inferior bilateral neck right greater than left. There is small dependent right pleural effusion, adjacent consolidation and atelectasis greater near the lung base of the right lower lobe. There is displaced and comminuted right lateral fifth rib fracture, fragment protruding more medially by about 0.6 cm, adjacent mild gas and parenchymal abnormality. There are also displaced right lateral sixth and seventh rib fractures with displacement of the more proximal fragments by one shaft width medially, some overriding of the fracture fragments. There are nondisplaced right posterior seventh and sixth rib fractures. There is displaced right posterior eighth rib fracture, more distal fragment displaced anteriorly by at least three quarters shaft width. There is dilatation of the ascending thoracic aorta about 4.7 cm, no intraluminal flap. There is no focal periaortic fluid collection. There is mild coronary calcification. Thoracic vertebral body stature is maintained. IMPRESSION: 1. There are right fifth through eighth rib fractures with displacement and overriding of fracture fragments of the sixth and seventh ribs as described, also nondisplaced separate fractures of right posterior sixth and seventh ribs. There is prominent gas in the soft tissues of the right chest also extending into the neck. There is superior pneumomediastinum. There is trace right pneumothorax, right chest tube present. There is small right pleural effusion, also some atelectasis lower lobes bilaterally greater on the right. There is also lung parenchymal abnormality near the displaced rib fractures likely component of contusion/laceration. 2. There is dilatation ascending thoracic aorta about 4.7 cm. Abdomen pelvis: FINDINGS: No focal abnormality is identified of the liver, spleen, pancreas. Gallbladder is present without obvious intraluminal abnormality by CT. There is no adrenal nodularity. There is [id number]-[id number] left hydronephrosis and hydroureter, hydroureter to the level of the pelvis, more distal left ureter difficult to confidently visualize. No ureteral calculus is identified. There is no right hydronephrosis. There is distention of the urinary bladder. Bowel is not significantly dilated. There is no free fluid or free air. There is no appreciable bowel wall thickening. Lumbar vertebral body stature and AP alignment are maintained. There is bilateral L3 spondylolysis likely chronic as there is sclerosis at margins, no significant spondylolisthesis. There is mild degenerative disc disease and spondylosis L3-4 and to lesser degree at L4-L5. IMPRESSION: 1. There is [id number] left hydroureteronephrosis, no obstructive calculus, distal ureter in the pelvis difficult to visualize. Distal obstructing ureteral mass or stricture are considerations. There is distention of urinary bladder. 2. There is likely chronic bilateral L3 spondylolysis, no significant spondylolisthesis. Electronically signed by: Abelardo Gauthier MD (11/07/2018 11:02 AM) [facility]
[2018-11-07] MEDS ORDERED: ONDANSETRON PF 4 MG/2 ML VIAL. IV PRN (12:00)
[2018-11-07] MEDS ORDERED: fentaNYL PF VIAL 100 MCG/2 ML VIAL IV PRN (12:00)
[2018-11-07] MEDS: IV NORMAL SALINE 1000ML BAG 1,000 ML IV SCH (12:08)
[2018-11-07] MEDS: HYDROcodone/APAP 7.5/325MG 1 TAB TABLET PO PRN ×2 (12:11→19:16)
--- NOTE | 2018-11-07 12:12 | PDOC2 ---
UROLOGY CONSULT Date of Admission DATE: 11/07/18 TIME: 12:02 Reason for Consult: left hydro Source: Chart review, Patient incidental left hydroureter during ct a/p for trauma. No gh, no flank pain. DENIES ANY luts. 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 Known left hydro , with evaluation at 20years ago showing no obstruction. ROS ROS: RESPIRATORY: Shortness of breath denies. Cough denies. UROLOGY: Denies blood in urine. Denies difficulty urinating Current Medications Current Medications Sodium Chloride 500 ml @ 500 mls/hr 1X ONCE IV Last administered on at 20:02; Start 11/06/18 at 19:45; Stop 11/06/18 at 20:44; Status DC Fentanyl Citrate (Fentanyl 2ml Vial) 50 mcg 1X ONCE IV Last administered on at 20:32; Start 11/06/18 at 19:45; Stop 11/06/18 at 19:46; Status DC Ketamine HCl (Ketamine) 50 mg 1X ONCE IV Last administered on 11/06/18at 20:15 ; Start 11/06/18 at 20:00; Stop 11/06/18 at 20:01; Status DC Lidocaine HCl 20 ml STK-MED ONCE .ROUTE ; Start 11/06/18 at 20:18; Stop at 20:19; Status DC Sodium Chloride 1,000 ml @ 1,000 mls/hr 1X ONCE IV Last administered on at 20:14; Start 11/06/18 at 21:00; Stop 11/06/18 at 21:59; Status DC Lidocaine HCl 40 ml 1X ONCE IJ Last administered on 11/06/18at 20:16; Start at 21:15; Stop 11/06/18 at 21:16; Status DC Ondansetron HCl (Zofran) 4 mg PRN Q8HRS PRN IV NAUSEA/VOMITING; Start 11/06/18 at 22:15; Stop 11/07/18 at 11:54; Status DC Morphine Sulfate (Morphine Sulfate) 4 mg PRN Q2HR PRN IV PAIN Last administered on 11/07/18at 07:47; Start 11/06/18 at 22:15; Stop 11/07/18 at 22:14 Sodium Chloride 1,000 ml @ 75 mls/hr [id number] IV Last administered on at 23:48; Start 11/06/18 at 22:15; Stop 11/07/18 at 22:14 Iohexol (Omnipaque 240 Mg/ml) 30 ml 1X ONCE PO Last administered on 11/07/18at 10:30; Start 11/07/18 at 09:00; Stop 11/07/18 at 09:01; Status DC Iohexol (Omnipaque 300 Mg/ml) 75 ml 1X ONCE IV Last administered on 11/07/18at 10:30; Start 11/07/18 at 09:00; Stop 11/07/18 at 09:01; Status DC Docusate Sodium (Colace) 100 mg DAILY PO ; Start 11/08/18 at 09:00 Ondansetron HCl (Zofran) 4 mg PRN Q6HRS PRN IV NAUSEA/VOMITING; Start 11/07/18 at 12:00 Acetaminophen/ Hydrocodone Bitart (Lortab 7.5/325) 1 tab PRN Q6HRS PRN PO PAIN ; Start 11/07/18 at 12:00; Status UNV Polyethylene Glycol (miraLAX PACKET) 17 gm DAILY PO ; Start 11/08/18 at 09:00; Status UNV Allergies: Coded Allergies: No Known Drug Allergies (Unverified , 11/06/18) Physical Examination PHYSICAL EXAMINATION: GENERAL: Gen. appearance: No acute distress. Mood/affect: Pleasant. HEENT: Head: Normocephalic, atraumatic. Airway Impairment: No. CHEST: Shape and expansion: Normal. Expansion: Normal. SKIN: General: Warm. Color: Good. GENITOURINARY:External genitalia - wnl. NEUROLOGICAL: Mental status: Alert and oriented 3. Language: Normal. DOES THIS PATIENT HAVE URINARY: No VITALS Vital Signs Date Time Temp Pulse Resp B/P (MAP) Pulse Ox O2 Delivery O2 Flow Rate FiO2 11/07/18 11:02 99.3 99 2 111/59 (76) 96 Nasal Cannula 2.0 99.3 Labs Laboratory Tests Test 11/06/18 19:33 11/07/18 04:00 White Blood Count 12.0 x10^3/uL (4.0-11.0) 10.5 x10^3/uL (4.0-11.0) Red Blood Count 4.48 x10^6/uL (4.30-5.70) 4.04 x10^6/uL (4.30-5.70) Hemoglobin 14.1 g/dL (13.0-17.5) 12.8 g/dL (13.0-17.5) Hematocrit 41.9 % (39.0-53.0) 37.7 % (39.0-53.0) Mean Corpuscular Volume 94 fL (79-100) 93 fL (79-100) Mean Corpuscular Hemoglobin 31 pg (25-35) 32 pg (25-35) Mean Corpuscular Hemoglobin Concent 34 g/dL (31-37) 34 g/dL (31-37) Red Cell Distribution Width 13.8 % (11.5-14.5) 14.1 % (11.5-14.5) Platelet Count 328 x10^3/uL (140-400) 259 x10^3/uL (140-400) Neutrophils (%) (Auto) 69 % (31-73) 70 % (31-73) Lymphocytes (%) (Auto) 19 % (24-48) 15 % (24-48) Monocytes (%) (Auto) 9 % (0-9) 14 % (0-9) Eosinophils (%) (Auto) 3 % (0-3) 1 % (0-3) Basophils (%) (Auto) 1 % (0-3) 0 % (0-3) Neutrophils # (Auto) 8.2 x10^3uL (1.8-7.7) 7.3 x10^3uL (1.8-7.7) Lymphocytes # (Auto) 2.3 x10^3/uL (1.0-4.8) 1.6 x10^3/uL (1.0-4.8) Monocytes # (Auto) 1.0 x10^3/uL (0.0-1.1) 1.5 x10^3/uL (0.0-1.1) Eosinophils # (Auto) 0.3 x10^3/uL (0.0-0.7) 0.1 x10^3/uL (0.0-0.7) Basophils # (Auto) 0.1 x10^3/uL (0.0-0.2) 0.0 x10^3/uL (0.0-0.2) Prothrombin Time 12.8 SEC (11.7-14.0) Prothromb Time International Ratio 1.0 (0.8-1.1) Sodium Level 144 mmol/L (136-145) Potassium Level 3.7 mmol/L (3.5-5.1) Chloride Level 103 mmol/L (98-107) Carbon Dioxide Level 32 mmol/L (21-32) Anion Gap 9 (6-14) Blood Urea Nitrogen 12 mg/dL (8-26) Creatinine 1.1 mg/dL (0.7-1.3) Estimated GFR (Cockcroft-Gault) 68.3 BUN/Creatinine Ratio 11 (6-20) Glucose Level 152 mg/dL (70-99) Calcium Level 8.6 mg/dL (8.5-10.1) Total Bilirubin 0.4 mg/dL (0.2-1.0) Aspartate Amino Transf (AST/SGOT) 108 U/L (15-37) Alanine Aminotransferase (ALT/SGPT) 83 U/L (16-63) Alkaline Phosphatase 47 U/L (46-116) Total Protein 7.0 g/dL (6.4-8.2) Albumin 4.0 g/dL (3.4-5.0) Albumin/Globulin Ratio 1.3 (1.0-1.7) Creatine Kinase 476 U/L (39-308) Laboratory Tests Test 11/06/18 19:33 11/07/18 04:00 White Blood Count 12.0 x10^3/uL (4.0-11.0) 10.5 x10^3/uL (4.0-11.0) Red Blood Count 4.48 x10^6/uL (4.30-5.70) 4.04 x10^6/uL (4.30-5.70) Hemoglobin 14.1 g/dL (13.0-17.5) 12.8 g/dL (13.0-17.5) Hematocrit 41.9 % (39.0-53.0) 37.7 % (39.0-53.0) Mean Corpuscular Volume 94 fL (79-100) 93 fL (79-100) Mean Corpuscular Hemoglobin 31 pg (25-35) 32 pg (25-35) Mean Corpuscular Hemoglobin Concent 34 g/dL (31-37) 34 g/dL (31-37) Red Cell Distribution Width 13.8 % (11.5-14.5) 14.1 % (11.5-14.5) Platelet Count 328 x10^3/uL (140-400) 259 x10^3/uL (140-400) Neutrophils (%) (Auto) 69 % (31-73) 70 % (31-73) Lymphocytes (%) (Auto) 19 % (24-48) 15 % (24-48) Monocytes (%) (Auto) 9 % (0-9) 14 % (0-9) Eosinophils (%) (Auto) 3 % (0-3) 1 % (0-3) Basophils (%) (Auto) 1 % (0-3) 0 % (0-3) Neutrophils # (Auto) 8.2 x10^3uL (1.8-7.7) 7.3 x10^3uL (1.8-7.7) Lymphocytes # (Auto) 2.3 x10^3/uL (1.0-4.8) 1.6 x10^3/uL (1.0-4.8) Monocytes # (Auto) 1.0 x10^3/uL (0.0-1.1) 1.5 x10^3/uL (0.0-1.1) Eosinophils # (Auto) 0.3 x10^3/uL (0.0-0.7) 0.1 x10^3/uL (0.0-0.7) Basophils # (Auto) 0.1 x10^3/uL (0.0-0.2) 0.0 x10^3/uL (0.0-0.2) Prothrombin Time 12.8 SEC (11.7-14.0) Prothromb Time International Ratio 1.0 (0.8-1.1) Sodium Level 144 mmol/L (136-145) Potassium Level 3.7 mmol/L (3.5-5.1) Chloride Level 103 mmol/L (98-107) Carbon Dioxide Level 32 mmol/L (21-32) Anion Gap 9 (6-14) Blood Urea Nitrogen 12 mg/dL (8-26) Creatinine 1.1 mg/dL (0.7-1.3) Estimated GFR (Cockcroft-Gault) 68.3 BUN/Creatinine Ratio 11 (6-20) Glucose Level 152 mg/dL (70-99) Calcium Level 8.6 mg/dL (8.5-10.1) Total Bilirubin 0.4 mg/dL (0.2-1.0) Aspartate Amino Transf (AST/SGOT) 108 U/L (15-37) Alanine Aminotransferase (ALT/SGPT) 83 U/L (16-63) Alkaline Phosphatase 47 U/L (46-116) Total Protein 7.0 g/dL (6.4-8.2) Albumin 4.0 g/dL (3.4-5.0) Albumin/Globulin Ratio 1.3 (1.0-1.7) Creatine Kinase 476 U/L (39-308) Assessment/Plan left hydroureter, chronic. Asymptomatic. cr 1.1 Presumably from pre-exiting condition and surgery. No acute intervention needed. May get MAG3 w lasix NRS on discharge or as OP. JABARI BROWN MD Nov 07, 2018 12:12
--- NOTE | 2018-11-07 12:34 | CONS ---
DATE OF CONSULTATION: PULMONARY CONSULTATION ATTENDING PHYSICIAN: Dr. Austin. REASON FOR CONSULTATION: Abnormal CT chest status post fall, pneumothorax and pneumomediastinum. HISTORY OF PRESENT ILLNESS: The patient is a 58-year-old male who fell off a 6 foot ladder. The patient fell on his right side on the ladder. He was complaining of severe pain on the right side of the chest with deep breathing. He was brought into the Emergency Room and trauma was activated. He underwent CT chest, abdomen and pelvis. I have reviewed the patient's CT chest. There are right 5th through 8th rib fractures with displacement. There is a tiny right pneumothorax and there is pneumomediastinum. The patient has a small right pleural effusion along with associated atelectasis. There is some mild lung contusion as well. The patient's chest x-ray initially showed about 15-20% pneumothorax. As a result, the ER physician had placed a chest tube. Trauma surgeon, Dr. Loomis was also consulted. The patient states that his breathing is better, he is on oxygen. He has a history of cigar use since 1990. No history of deep vein thrombosis. No headaches. No nausea or vomiting. PAST MEDICAL HISTORY: Significant for minimal cigar use. No other chronic medical problems. PAST SURGICAL HISTORY: No recent surgery. ALLERGIES: None. MEDICATIONS: Reviewed as listed in the MRAD, including Lovenox for DVT prophylaxis, morphine and p.r.n. hydrocodone. REVIEW OF SYSTEMS: Twelve-point systems obtained. Pertinent positives discussed in my history of present illness, otherwise noncontributory. All systems that were negative were reviewed as well. SOCIAL HISTORY: Smoked cigars since 1992. FAMILY HISTORY: Noncontributory to lungs. PHYSICAL EXAMINATION: VITAL SIGNS: Reviewed. Pulse ox 96% on 2 liters. T-max of 99.2. NECK: Supple. LUNGS: With slightly diminished breath sounds right side. No crepitus. CARDIOVASCULAR: Regular rate. ABDOMEN: Soft, nontender. EXTREMITIES: With no pitting edema. LABORATORY DATA: Reviewed. White cell count 10.5, hemoglobin 12.8. BUN and creatinine 12 and 1.1. IMPRESSION: 1. Status post mechanical fall resulting in right apical pneumothorax and pneumomediastinum along with right 5th through 8th rib fractures with displacement, status post right chest tube. 2. Small tiny right lower lobe effusion, likely tiny hemothorax. There is also parenchymal abnormality, likely lung contusion. 3. Minimal history of cigar use. 4. Guou-or-xlwhtrhc left hydroureteronephrosis with no obstructive calculi. RECOMMENDATIONS: 1. Continue chest tube to suction. No air leak seen. 2. Follow daily chest x-rays. 3. The pneumomediastinum should resolve by itself. No intervention is required. 4. Adequate pain control. 5. Incentive spirometry. 6. P.r.n. bronchodilators. 7. Discussed with RN and we will follow along with you. Critical care time 35 minutes. LISSY LYON MD DR: SHELLEY/isis JOB#: [id number] / [id number]
[2018-11-07] MEDS: IPRATRPIUM/ALBUTEROL 0.5/2.5MG 3 ML NEBU. NEB SCH ×3 (12:39→19:34)
[2018-11-07 12:47] LABS: BILIRUBIN,URINE NEGATIVE (NEG); CLARITY,URINE CLEAR; COLOR,URINE YELLOW; NITRITE,URINE NEGATIVE (NEG); PH,URINE 6.5; PROTEIN,URINE NEGATIVE (NEG-TRACE); UROBILINOGEN,URINE 0.2 mg/dL (0.2 mg/dL)
[2018-11-07] MEDS ORDERED: IOHEXOL 300 MG/ML 100ML VIAL. PO ONE (13:00)
[2018-11-07] MEDS: POLYETHYLENE GLYCOL 3350 17 GM PACKET. PO SCH (13:00)
[2018-11-07] MEDS: DOCUSATE SODIUM 100 MG CAPSULE. PO SCH (13:00)
[2018-11-07 13:10] LABS: BACTERIA,URINE 0 /HPF (0-FEW); SQUAMOUS EPITHELIAL CELL,UR OCC /LPF; WBC,URINE OCC /HPF (0-4)
--- NOTE | 2018-11-07 13:35 | PDOC ---
Provider Note Provider Note 58 y old male, admitted following blunt thoracic trauma. S/p fall from ladder, sustaining R 5-7th rib fxs. Right tube thoracostomy inserted for associated PTX. Pneumomediastinum noted on CT chest. Likely dissecting air from lung injury. Also s/q emphysema. Nevertheless, need to rule out blunt esophageal injury. Obtain esophagram. Given significant displacement and overlapping of rib fracture segments, patient may benefit from rib plating to avoid chronic pain syndrome. JAGDEEP GREENE MD Nov 07, 2018 13:35
--- NOTE | 2018-11-07 14:47 | RAD ---
ESOPHAGRAM/BARIUM SWALLOW History: Fall, multiple rib fractures, pneumomediastinum Comparison: CT chest the same day Findings: Esophagram was performed utilizing dilute Omnipaque. Only standing images were performed due to multiple right rib fractures. There is also right chest tube. Note is made of small right apical pneumothorax as seen on CT. No esophageal leak was identified. Caliber of the esophagus is within normal limits. Fluoroscopy time: 0.08 minutes, 60 images. Impression: 1. No esophageal leak was identified. Electronically signed by: Abelardo Gauthier MD (11/07/2018 2:44 PM) [facility]
[2018-11-07] MEDS: PANTOPRAZOLE 40 MG TABLET.DR. PO SCH (17:12)
[2018-11-07] MEDS: ENOXAPARIN 40 MG/0.4 ML SYRINGE. SQ SCH (17:13)
[2018-11-08] VITALS (23 sets, daily range): BP systolic 94–140; BP diastolic 54–77
[2018-11-08] MEDS: HYDROcodone/APAP 7.5/325MG 1 TAB TABLET PO PRN ×4 (03:34→22:49)
[2018-11-08 05:18] LABS: BASO % 0 % (0-3); EOS # 0.1 x10^3/uL (0.0-0.7); EOS % 1 % (0-3); HEMATOCRIT 38.9 % (39.0-53.0); HEMOGLOBIN 12.7 g/dL (13.0-17.5); LYMPH # 1.3 x10^3/uL (1.0-4.8); LYMPH % 11 % (24-48); MEAN CORPUSCULAR HEMOGLOBIN 30 pg (25-35); MEAN CORPUSCULAR HGB CONC 33 g/dL (31-37); MEAN CORPUSCULAR VOLUME 93 fL (79-100); MONO # 1.6 x10^3/uL (0.0-1.1); MONO % 13 % (0-9); NEUT # 8.9 x10^3uL (1.8-7.7); NEUT % 75 % (31-73); PLATELET COUNT 257 x10^3/uL (140-400); RED BLOOD COUNT 4.17 x10^6/uL (4.30-5.70); RED CELL DISTRIBUTION WIDTH 13.7 % (11.5-14.5); WHITE BLOOD COUNT 11.9 x10^3/uL (4.0-11.0)
[2018-11-08 05:53] LABS: ALBUMIN 3.1 g/dL (3.4-5.0); CALCIUM 8.5 mg/dL (8.5-10.1); CREATININE 0.7 mg/dL (0.7-1.3); POTASSIUM 3.7 mmol/L (3.5-5.1); TOTAL BILIRUBIN 0.8 mg/dL (0.2-1.0); TOTAL PROTEIN 6.3 g/dL (6.4-8.2)
--- NOTE | 2018-11-08 07:52 | RAD ---
Examination: RENAL COMPLETE BILATERAL History: technically difficult pt unable to roll chest tube and rt broken ribs unable to take in a breathe; hydronephrosis Comparison/Correlation: None Findings: Right kidney measures 11.5 cm x 6.16 x 4.8 cm. Left kidney measures 12.5 cm x 5.17 x 5.1 cm. Renal contours and echotexture are normal. Right renal contour and echotexture are normal. No right hydronephrosis. Left hydronephrosis is present. Left renal echotexture is normal. Mildly lobulated left renal contour noted. No obstructive lesion seen on images provided. No renal calculi identified. Urinary bladder is distended. Volume of up to is 630 cc is suggested. Impression: Left hydronephrosis. Distended urinary bladder. Electronically signed by: Tavo Springer MD (11/08/2018 7:49 AM) [facility]
--- NOTE | 2018-11-08 08:16 | RAD ---
Examination: PORTABLE CHEST 1V History: PNEUMOTHORAX
Comparison/Correlation: 11/06/2018 portable chest x-ray exam Findings: Portable frontal view chest was obtained. Subcutaneous emphysema is noted involving the soft tissues of the right sacroiliac and the right chest wall. Small right-sided mid thoracic level chest tube is present. No pneumothorax identified. Right lateral rib fractures are present. Retrocardiac opacity which may represent consolidation or atelectasis at the left base is new in the interval. Contrast is noted within bowel. Impression: No pneumothorax. Interval development of retrocardiac left basilar lower lobe atelectasis. Electronically signed by: Tavo Springer MD (11/08/2018 8:11 AM) [facility]
[2018-11-08] MEDS: DOCUSATE SODIUM 100 MG CAPSULE. PO SCH (08:49)
[2018-11-08] MEDS: POLYETHYLENE GLYCOL 3350 17 GM PACKET. PO SCH (08:50)
[2018-11-08] MEDS: PANTOPRAZOLE 40 MG TABLET.DR. PO SCH (08:50)
[2018-11-08] MEDS: IPRATRPIUM/ALBUTEROL 0.5/2.5MG 3 ML NEBU. NEB SCH ×4 (08:52→20:23)
--- NOTE | 2018-11-08 08:54 | PDOC ---
SURGICAL PROGRESS NOTE Subjective Pt doing well except for right chest pain with movement Vital Signs Vital Signs Date Time Temp Pulse Resp B/P (MAP) Pulse Ox O2 Delivery O2 Flow Rate FiO2 11/08/18 07:00 71 22 124/68 (86) 93 Room Air 11/08/18 06:00 2.0 11/08/18 04:00 99.3 99.3 I&O Intake and Output 11/08/18 06:59 Intake Total 1709 ml Output Total 1802 ml Balance -93 ml Intake Oral 750 ml IV Total 959 ml Output Urine Total 1800 ml Chest Tube Drainage Total 2 ml General: Alert, Oriented X3, Cooperative, No acute distress Lungs: Normal air movement, Other (right chest dressing intact) Labs Laboratory Tests Test 11/06/18 19:33 11/06/18 23:20 11/07/18 04:00 11/07/18 12:25 White Blood Count 12.0 x10^3/uL (4.0-11.0) 10.5 x10^3/uL (4.0-11.0) Red Blood Count 4.48 x10^6/uL (4.30-5.70) 4.04 x10^6/uL (4.30-5.70) Hemoglobin 14.1 g/dL (13.0-17.5) 12.8 g/dL (13.0-17.5) Hematocrit 41.9 % (39.0-53.0) 37.7 % (39.0-53.0) Mean Corpuscular Volume 94 fL (79-100) 93 fL (79-100) Mean Corpuscular Hemoglobin 31 pg (25-35) 32 pg (25-35) Mean Corpuscular Hemoglobin Concent 34 g/dL (31-37) 34 g/dL (31-37) Red Cell Distribution Width 13.8 % (11.5-14.5) 14.1 % (11.5-14.5) Platelet Count 328 x10^3/uL (140-400) 259 x10^3/uL (140-400) Neutrophils (%) (Auto) 69 % (31-73) 70 % (31-73) Lymphocytes (%) (Auto) 19 % (24-48) 15 % (24-48) Monocytes (%) (Auto) 9 % (0-9) 14 % (0-9) Eosinophils (%) (Auto) 3 % (0-3) 1 % (0-3) Basophils (%) (Auto) 1 % (0-3) 0 % (0-3) Neutrophils # (Auto) 8.2 x10^3uL (1.8-7.7) 7.3 x10^3uL (1.8-7.7) Lymphocytes # (Auto) 2.3 x10^3/uL (1.0-4.8) 1.6 x10^3/uL (1.0-4.8) Monocytes # (Auto) 1.0 x10^3/uL (0.0-1.1) 1.5 x10^3/uL (0.0-1.1) Eosinophils # (Auto) 0.3 x10^3/uL (0.0-0.7) 0.1 x10^3/uL (0.0-0.7) Basophils # (Auto) 0.1 x10^3/uL (0.0-0.2) 0.0 x10^3/uL (0.0-0.2) Prothrombin Time 12.8 SEC (11.7-14.0) Prothromb Time International Ratio 1.0 (0.8-1.1) Sodium Level 144 mmol/L (136-145) Potassium Level 3.7 mmol/L (3.5-5.1) Chloride Level 103 mmol/L (98-107) Carbon Dioxide Level 32 mmol/L (21-32) Anion Gap 9 (6-14) Blood Urea Nitrogen 12 mg/dL (8-26) Creatinine 1.1 mg/dL (0.7-1.3) Estimated GFR (Cockcroft-Gault) 68.3 BUN/Creatinine Ratio 11 (6-20) Glucose Level 152 mg/dL (70-99) Calcium Level 8.6 mg/dL (8.5-10.1) Total Bilirubin 0.4 mg/dL (0.2-1.0) Aspartate Amino Transf (AST/SGOT) 108 U/L (15-37) Alanine Aminotransferase (ALT/SGPT) 83 U/L (16-63) Alkaline Phosphatase 47 U/L (46-116) Total Protein 7.0 g/dL (6.4-8.2) Albumin 4.0 g/dL (3.4-5.0) Albumin/Globulin Ratio 1.3 (1.0-1.7) Nasal Screen MRSA (PCR) Negative (Negative) Creatine Kinase 476 U/L (39-308) Urine Collection Type Unknown Urine Color Yellow Urine Clarity Clear Urine pH 6.5 Urine Specific [place] >=1.030 Urine Protein Negative mg/dL (NEG-TRACE) Urine Glucose (UA) Negative mg/dL (NEG) Urine Ketones (Stick) Negative mg/dL (NEG) Urine Blood Small (NEG) Urine Nitrite Negative (NEG) Urine Bilirubin Negative (NEG) Urine Urobilinogen Dipstick 0.2 mg/dL (0.2 mg/dL) Urine Leukocyte Esterase Negative (NEG) Urine RBC 3-5 /HPF (0-2) Urine WBC Occ /HPF (0-4) Urine Squamous Epithelial Cells Occ /LPF Urine Bacteria 0 /HPF (0-FEW) Urine Mucus Slight /LPF Test 11/08/18 04:06 11/08/18 04:28 Sodium Level 141 mmol/L (136-145) Potassium Level 3.7 mmol/L (3.5-5.1) Chloride Level 104 mmol/L (98-107) Carbon Dioxide Level 26 mmol/L (21-32) Anion Gap 11 (6-14) Blood Urea Nitrogen 9 mg/dL (8-26) Creatinine 0.7 mg/dL (0.7-1.3) Estimated GFR (Cockcroft-Gault) 115.0 BUN/Creatinine Ratio 13 (6-20) Glucose Level 110 mg/dL (70-99) Calcium Level 8.5 mg/dL (8.5-10.1) Total Bilirubin 0.8 mg/dL (0.2-1.0) Aspartate Amino Transf (AST/SGOT) 24 U/L (15-37) Alanine Aminotransferase (ALT/SGPT) 39 U/L (16-63) Alkaline Phosphatase 40 U/L (46-116) Total Protein 6.3 g/dL (6.4-8.2) Albumin 3.1 g/dL (3.4-5.0) Albumin/Globulin Ratio 1.0 (1.0-1.7) White Blood Count 11.9 x10^3/uL (4.0-11.0) Red Blood Count 4.17 x10^6/uL (4.30-5.70) Hemoglobin 12.7 g/dL (13.0-17.5) Hematocrit 38.9 % (39.0-53.0) Mean Corpuscular Volume 93 fL (79-100) Mean Corpuscular Hemoglobin 30 pg (25-35) Mean Corpuscular Hemoglobin Concent 33 g/dL (31-37) Red Cell Distribution Width 13.7 % (11.5-14.5) Platelet Count 257 x10^3/uL (140-400) Neutrophils (%) (Auto) 75 % (31-73) Lymphocytes (%) (Auto) 11 % (24-48) Monocytes (%) (Auto) 13 % (0-9) Eosinophils (%) (Auto) 1 % (0-3) Basophils (%) (Auto) 0 % (0-3) Neutrophils # (Auto) 8.9 x10^3uL (1.8-7.7) Lymphocytes # (Auto) 1.3 x10^3/uL (1.0-4.8) Monocytes # (Auto) 1.6 x10^3/uL (0.0-1.1) Eosinophils # (Auto) 0.1 x10^3/uL (0.0-0.7) Basophils # (Auto) 0.0 x10^3/uL (0.0-0.2) Laboratory Tests Test 11/07/18 12:25 11/08/18 04:06 11/08/18 04:28 Urine Collection Type Unknown Urine Color Yellow Urine Clarity Clear Urine pH 6.5 Urine Specific [place] >=1.030 Urine Protein Negative mg/dL (NEG-TRACE) Urine Glucose (UA) Negative mg/dL (NEG) Urine Ketones (Stick) Negative mg/dL (NEG) Urine Blood Small (NEG) Urine Nitrite Negative (NEG) Urine Bilirubin Negative (NEG) Urine Urobilinogen Dipstick 0.2 mg/dL (0.2 mg/dL) Urine Leukocyte Esterase Negative (NEG) Urine RBC 3-5 /HPF (0-2) Urine WBC Occ /HPF (0-4) Urine Squamous Epithelial Cells Occ /LPF Urine Bacteria 0 /HPF (0-FEW) Urine Mucus Slight /LPF Sodium Level 141 mmol/L (136-145) Potassium Level 3.7 mmol/L (3.5-5.1) Chloride Level 104 mmol/L (98-107) Carbon Dioxide Level 26 mmol/L (21-32) Anion Gap 11 (6-14) Blood Urea Nitrogen 9 mg/dL (8-26) Creatinine 0.7 mg/dL (0.7-1.3) Estimated GFR (Cockcroft-Gault) 115.0 BUN/Creatinine Ratio 13 (6-20) Glucose Level 110 mg/dL (70-99) Calcium Level 8.5 mg/dL (8.5-10.1) Total Bilirubin 0.8 mg/dL (0.2-1.0) Aspartate Amino Transf (AST/SGOT) 24 U/L (15-37) Alanine Aminotransferase (ALT/SGPT) 39 U/L (16-63) Alkaline Phosphatase 40 U/L (46-116) Total Protein 6.3 g/dL (6.4-8.2) Albumin 3.1 g/dL (3.4-5.0) Albumin/Globulin Ratio 1.0 (1.0-1.7) White Blood Count 11.9 x10^3/uL (4.0-11.0) Red Blood Count 4.17 x10^6/uL (4.30-5.70) Hemoglobin 12.7 g/dL (13.0-17.5) Hematocrit 38.9 % (39.0-53.0) Mean Corpuscular Volume 93 fL (79-100) Mean Corpuscular Hemoglobin 30 pg (25-35) Mean Corpuscular Hemoglobin Concent 33 g/dL (31-37) Red Cell Distribution Width 13.7 % (11.5-14.5) Platelet Count 257 x10^3/uL (140-400) Neutrophils (%) (Auto) 75 % (31-73) Lymphocytes (%) (Auto) 11 % (24-48) Monocytes (%) (Auto) 13 % (0-9) Eosinophils (%) (Auto) 1 % (0-3) Basophils (%) (Auto) 0 % (0-3) Neutrophils # (Auto) 8.9 x10^3uL (1.8-7.7) Lymphocytes # (Auto) 1.3 x10^3/uL (1.0-4.8) Monocytes # (Auto) 1.6 x10^3/uL (0.0-1.1) Eosinophils # (Auto) 0.1 x10^3/uL (0.0-0.7) Basophils # (Auto) 0.0 x10^3/uL (0.0-0.2) I have reviewed the following CT with multiple rib fractures, esophagram wnl Problem List Problems Medical Problems: (1) Rib fractures Status: Acute Assessment/Plan cont pain control, will ask anesthesia about epidural chest tube per CTS, agree with consideration for rib plating. Would defer to CTS or consider Dr. Zuniga at [facility]. CAIT MARTINEZ MD Nov 08, 2018 08:53
--- NOTE | 2018-11-08 10:17 | PDOC ---
PULMONARY PROGRESS NOTES Subjective no soa, some right cw pain Vitals Vital Signs Date Time Temp Pulse Resp B/P (MAP) Pulse Ox O2 Delivery O2 Flow Rate FiO2 11/08/18 09:00 88 20 114/61 (78) 93 Room Air 11/08/18 08:00 99.1 99.1 11/08/18 06:00 2.0 General: Alert, No acute distress Lungs: Clear Cardiovascular: S1 Abdomen: Soft Neuro Exam: Alert Extremities: No Edema Skin: Warm Labs Laboratory Tests Test 11/06/18 19:33 11/06/18 23:20 11/07/18 04:00 11/07/18 12:25 White Blood Count 12.0 x10^3/uL (4.0-11.0) 10.5 x10^3/uL (4.0-11.0) Red Blood Count 4.48 x10^6/uL (4.30-5.70) 4.04 x10^6/uL (4.30-5.70) Hemoglobin 14.1 g/dL (13.0-17.5) 12.8 g/dL (13.0-17.5) Hematocrit 41.9 % (39.0-53.0) 37.7 % (39.0-53.0) Mean Corpuscular Volume 94 fL (79-100) 93 fL (79-100) Mean Corpuscular Hemoglobin 31 pg (25-35) 32 pg (25-35) Mean Corpuscular Hemoglobin Concent 34 g/dL (31-37) 34 g/dL (31-37) Red Cell Distribution Width 13.8 % (11.5-14.5) 14.1 % (11.5-14.5) Platelet Count 328 x10^3/uL (140-400) 259 x10^3/uL (140-400) Neutrophils (%) (Auto) 69 % (31-73) 70 % (31-73) Lymphocytes (%) (Auto) 19 % (24-48) 15 % (24-48) Monocytes (%) (Auto) 9 % (0-9) 14 % (0-9) Eosinophils (%) (Auto) 3 % (0-3) 1 % (0-3) Basophils (%) (Auto) 1 % (0-3) 0 % (0-3) Neutrophils # (Auto) 8.2 x10^3uL (1.8-7.7) 7.3 x10^3uL (1.8-7.7) Lymphocytes # (Auto) 2.3 x10^3/uL (1.0-4.8) 1.6 x10^3/uL (1.0-4.8) Monocytes # (Auto) 1.0 x10^3/uL (0.0-1.1) 1.5 x10^3/uL (0.0-1.1) Eosinophils # (Auto) 0.3 x10^3/uL (0.0-0.7) 0.1 x10^3/uL (0.0-0.7) Basophils # (Auto) 0.1 x10^3/uL (0.0-0.2) 0.0 x10^3/uL (0.0-0.2) Prothrombin Time 12.8 SEC (11.7-14.0) Prothromb Time International Ratio 1.0 (0.8-1.1) Sodium Level 144 mmol/L (136-145) Potassium Level 3.7 mmol/L (3.5-5.1) Chloride Level 103 mmol/L (98-107) Carbon Dioxide Level 32 mmol/L (21-32) Anion Gap 9 (6-14) Blood Urea Nitrogen 12 mg/dL (8-26) Creatinine 1.1 mg/dL (0.7-1.3) Estimated GFR (Cockcroft-Gault) 68.3 BUN/Creatinine Ratio 11 (6-20) Glucose Level 152 mg/dL (70-99) Calcium Level 8.6 mg/dL (8.5-10.1) Total Bilirubin 0.4 mg/dL (0.2-1.0) Aspartate Amino Transf (AST/SGOT) 108 U/L (15-37) Alanine Aminotransferase (ALT/SGPT) 83 U/L (16-63) Alkaline Phosphatase 47 U/L (46-116) Total Protein 7.0 g/dL (6.4-8.2) Albumin 4.0 g/dL (3.4-5.0) Albumin/Globulin Ratio 1.3 (1.0-1.7) Nasal Screen MRSA (PCR) Negative (Negative) Creatine Kinase 476 U/L (39-308) Urine Collection Type Unknown Urine Color Yellow Urine Clarity Clear Urine pH 6.5 Urine Specific [place] >=1.030 Urine Protein Negative mg/dL (NEG-TRACE) Urine Glucose (UA) Negative mg/dL (NEG) Urine Ketones (Stick) Negative mg/dL (NEG) Urine Blood Small (NEG) Urine Nitrite Negative (NEG) Urine Bilirubin Negative (NEG) Urine Urobilinogen Dipstick 0.2 mg/dL (0.2 mg/dL) Urine Leukocyte Esterase Negative (NEG) Urine RBC 3-5 /HPF (0-2) Urine WBC Occ /HPF (0-4) Urine Squamous Epithelial Cells Occ /LPF Urine Bacteria 0 /HPF (0-FEW) Urine Mucus Slight /LPF Test 11/08/18 04:06 11/08/18 04:28 Sodium Level 141 mmol/L (136-145) Potassium Level 3.7 mmol/L (3.5-5.1) Chloride Level 104 mmol/L (98-107) Carbon Dioxide Level 26 mmol/L (21-32) Anion Gap 11 (6-14) Blood Urea Nitrogen 9 mg/dL (8-26) Creatinine 0.7 mg/dL (0.7-1.3) Estimated GFR (Cockcroft-Gault) 115.0 BUN/Creatinine Ratio 13 (6-20) Glucose Level 110 mg/dL (70-99) Calcium Level 8.5 mg/dL (8.5-10.1) Total Bilirubin 0.8 mg/dL (0.2-1.0) Aspartate Amino Transf (AST/SGOT) 24 U/L (15-37) Alanine Aminotransferase (ALT/SGPT) 39 U/L (16-63) Alkaline Phosphatase 40 U/L (46-116) Total Protein 6.3 g/dL (6.4-8.2) Albumin 3.1 g/dL (3.4-5.0) Albumin/Globulin Ratio 1.0 (1.0-1.7) White Blood Count 11.9 x10^3/uL (4.0-11.0) Red Blood Count 4.17 x10^6/uL (4.30-5.70) Hemoglobin 12.7 g/dL (13.0-17.5) Hematocrit 38.9 % (39.0-53.0) Mean Corpuscular Volume 93 fL (79-100) Mean Corpuscular Hemoglobin 30 pg (25-35) Mean Corpuscular Hemoglobin Concent 33 g/dL (31-37) Red Cell Distribution Width 13.7 % (11.5-14.5) Platelet Count 257 x10^3/uL (140-400) Neutrophils (%) (Auto) 75 % (31-73) Lymphocytes (%) (Auto) 11 % (24-48) Monocytes (%) (Auto) 13 % (0-9) Eosinophils (%) (Auto) 1 % (0-3) Basophils (%) (Auto) 0 % (0-3) Neutrophils # (Auto) 8.9 x10^3uL (1.8-7.7) Lymphocytes # (Auto) 1.3 x10^3/uL (1.0-4.8) Monocytes # (Auto) 1.6 x10^3/uL (0.0-1.1) Eosinophils # (Auto) 0.1 x10^3/uL (0.0-0.7) Basophils # (Auto) 0.0 x10^3/uL (0.0-0.2) Laboratory Tests Test 11/07/18 12:25 11/08/18 04:06 11/08/18 04:28 Urine Collection Type Unknown Urine Color Yellow Urine Clarity Clear Urine pH 6.5 Urine Specific [place] >=1.030 Urine Protein Negative mg/dL (NEG-TRACE) Urine Glucose (UA) Negative mg/dL (NEG) Urine Ketones (Stick) Negative mg/dL (NEG) Urine Blood Small (NEG) Urine Nitrite Negative (NEG) Urine Bilirubin Negative (NEG) Urine Urobilinogen Dipstick 0.2 mg/dL (0.2 mg/dL) Urine Leukocyte Esterase Negative (NEG) Urine RBC 3-5 /HPF (0-2) Urine WBC Occ /HPF (0-4) Urine Squamous Epithelial Cells Occ /LPF Urine Bacteria 0 /HPF (0-FEW) Urine Mucus Slight /LPF Sodium Level 141 mmol/L (136-145) Potassium Level 3.7 mmol/L (3.5-5.1) Chloride Level 104 mmol/L (98-107) Carbon Dioxide Level 26 mmol/L (21-32) Anion Gap 11 (6-14) Blood Urea Nitrogen 9 mg/dL (8-26) Creatinine 0.7 mg/dL (0.7-1.3) Estimated GFR (Cockcroft-Gault) 115.0 BUN/Creatinine Ratio 13 (6-20) Glucose Level 110 mg/dL (70-99) Calcium Level 8.5 mg/dL (8.5-10.1) Total Bilirubin 0.8 mg/dL (0.2-1.0) Aspartate Amino Transf (AST/SGOT) 24 U/L (15-37) Alanine Aminotransferase (ALT/SGPT) 39 U/L (16-63) Alkaline Phosphatase 40 U/L (46-116) Total Protein 6.3 g/dL (6.4-8.2) Albumin 3.1 g/dL (3.4-5.0) Albumin/Globulin Ratio 1.0 (1.0-1.7) White Blood Count 11.9 x10^3/uL (4.0-11.0) Red Blood Count 4.17 x10^6/uL (4.30-5.70) Hemoglobin 12.7 g/dL (13.0-17.5) Hematocrit 38.9 % (39.0-53.0) Mean Corpuscular Volume 93 fL (79-100) Mean Corpuscular Hemoglobin 30 pg (25-35) Mean Corpuscular Hemoglobin Concent 33 g/dL (31-37) Red Cell Distribution Width 13.7 % (11.5-14.5) Platelet Count 257 x10^3/uL (140-400) Neutrophils (%) (Auto) 75 % (31-73) Lymphocytes (%) (Auto) 11 % (24-48) Monocytes (%) (Auto) 13 % (0-9) Eosinophils (%) (Auto) 1 % (0-3) Basophils (%) (Auto) 0 % (0-3) Neutrophils # (Auto) 8.9 x10^3uL (1.8-7.7) Lymphocytes # (Auto) 1.3 x10^3/uL (1.0-4.8) Monocytes # (Auto) 1.6 x10^3/uL (0.0-1.1) Eosinophils # (Auto) 0.1 x10^3/uL (0.0-0.7) Basophils # (Auto) 0.0 x10^3/uL (0.0-0.2) Comments CXR NO ptx, right sc air Impression . 1. Status post mechanical fall resulting in right apical pneumothorax and pneumomediastinum along with right 5th through 8th rib fractures with displacement, status post right chest tube. 2. Small tiny right lower lobe effusion, likely tiny hemothorax. There is also parenchymal abnormality, likely lung contusion. 3. Minimal history of cigar use. 4. [id number] left hydroureteronephrosis with no obstructive calculi. Plan . 1. Place chest tube to water seal. No air leak seen. 2. Follow daily chest x-rays. 3. The pneumomediastinum should resolve by itself. No intervention is required. 4. Adequate pain control. 5. Incentive spirometry. 6. P.r.n. bronchodilators. 7. Discussed with RN and we will follow along with you. LISSY LYON MD Nov 08, 2018 10:17
--- NOTE | 2018-11-08 10:37 | PDOC ---
PROGRESS NOTES History of Present Illness History of Present Illness Assessment/Plan Assessment/Plan Assessment/Plan R PTX, rib fx, multiple pneumomediastinum No esophageal leak was identified. 11/08 hydronephrosis There is [id number] left hydroureteronephrosis, no obstructive calculus, distal ureter in the pelvis difficult to visualize. Distal obstructing ureteral mass or stricture are considerations. 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 Known left hydro, with evaluation at [facility] 20years ago showing no obstruction. There is pneumomediastinum greater superiorly. There is trace right apical pneumothorax. There is prominent gas in the soft tissues of the right chest also extending posteriorly into the upper back as well as the inferior bilateral neck right greater than left. There is small dependent right pleural effusion, adjacent consolidation and atelectasis There is dilatation of the ascending thoracic aorta about 4.7 cm, no intraluminal flap seen [id number] left hydronephrosis and hydroureter, hydroureter to the level of the pelvis, more distal left ureter difficult to confidently visualize. PLAN PULM consult CTS consult urology consult reviewed ua renal sono eval hydronephrosis keep in icu DVT prophylaxis ECHO CHEST TUBE PER SURGERY 33 min cc time Vitals Vitals Vital Signs Date Time Temp Pulse Resp B/P (MAP) Pulse Ox O2 Delivery O2 Flow Rate FiO2 11/08/18 10:29 Room Air 11/08/18 10:00 85 19 112/63 (79) 92 11/08/18 08:00 99.1 99.1 11/08/18 06:00 2.0 Physical Exam General: Alert, Oriented X3, Cooperative, No acute distress Heart: Regular rate, No murmurs Lungs: Clear Abdomen: Normal bowel sounds, Soft, No tenderness Extremities: No clubbing, No cyanosis Skin: No rashes, No breakdown Labs LABS PROCEDURE: ESOPHAGRAM/BARIUM SWALLOW ESOPHAGRAM/BARIUM SWALLOW History: Fall, multiple rib fractures, pneumomediastinum Comparison: CT chest the same day Findings: Esophagram was performed utilizing dilute Omnipaque. Only standing images were performed due to multiple right rib fractures. There is also right chest tube. Note is made of small right apical pneumothorax as seen on CT. No esophageal leak was identified. Caliber of the esophagus is within normal limits. Fluoroscopy time: 0.08 minutes, 60 images. Impression: 1. No esophageal leak was identified. Electronically signed by: Abelardo Gauthier MD (11/07/2018 2:44 PM) [facility] Laboratory Tests Test 11/07/18 12:25 11/08/18 04:06 11/08/18 04:28 Urine Collection Type Unknown Urine Color Yellow Urine Clarity Clear Urine pH 6.5 Urine Specific [place] >=1.030 Urine Protein Negative mg/dL (NEG-TRACE) Urine Glucose (UA) Negative mg/dL (NEG) Urine Ketones (Stick) Negative mg/dL (NEG) Urine Blood Small (NEG) Urine Nitrite Negative (NEG) Urine Bilirubin Negative (NEG) Urine Urobilinogen Dipstick 0.2 mg/dL (0.2 mg/dL) Urine Leukocyte Esterase Negative (NEG) Urine RBC 3-5 /HPF (0-2) Urine WBC Occ /HPF (0-4) Urine Squamous Epithelial Cells Occ /LPF Urine Bacteria 0 /HPF (0-FEW) Urine Mucus Slight /LPF Sodium Level 141 mmol/L (136-145) Potassium Level 3.7 mmol/L (3.5-5.1) Chloride Level 104 mmol/L (98-107) Carbon Dioxide Level 26 mmol/L (21-32) Anion Gap 11 (6-14) Blood Urea Nitrogen 9 mg/dL (8-26) Creatinine 0.7 mg/dL (0.7-1.3) Estimated GFR (Cockcroft-Gault) 115.0 BUN/Creatinine Ratio 13 (6-20) Glucose Level 110 mg/dL (70-99) Calcium Level 8.5 mg/dL (8.5-10.1) Total Bilirubin 0.8 mg/dL (0.2-1.0) Aspartate Amino Transf (AST/SGOT) 24 U/L (15-37) Alanine Aminotransferase (ALT/SGPT) 39 U/L (16-63) Alkaline Phosphatase 40 U/L (46-116) Total Protein 6.3 g/dL (6.4-8.2) Albumin 3.1 g/dL (3.4-5.0) Albumin/Globulin Ratio 1.0 (1.0-1.7) White Blood Count 11.9 x10^3/uL (4.0-11.0) Red Blood Count 4.17 x10^6/uL (4.30-5.70) Hemoglobin 12.7 g/dL (13.0-17.5) Hematocrit 38.9 % (39.0-53.0) Mean Corpuscular Volume 93 fL (79-100) Mean Corpuscular Hemoglobin 30 pg (25-35) Mean Corpuscular Hemoglobin Concent 33 g/dL (31-37) Red Cell Distribution Width 13.7 % (11.5-14.5) Platelet Count 257 x10^3/uL (140-400) Neutrophils (%) (Auto) 75 % (31-73) Lymphocytes (%) (Auto) 11 % (24-48) Monocytes (%) (Auto) 13 % (0-9) Eosinophils (%) (Auto) 1 % (0-3) Basophils (%) (Auto) 0 % (0-3) Neutrophils # (Auto) 8.9 x10^3uL (1.8-7.7) Lymphocytes # (Auto) 1.3 x10^3/uL (1.0-4.8) Monocytes # (Auto) 1.6 x10^3/uL (0.0-1.1) Eosinophils # (Auto) 0.1 x10^3/uL (0.0-0.7) Basophils # (Auto) 0.0 x10^3/uL (0.0-0.2) Assessment and Plan Assessmemt and Plan Problems Medical Problems: (1) Rib fractures Status: Acute Comment Review of Relevant I have reviewed the following items toyin (where applicable) has been applied. Labs Laboratory Tests Test 11/06/18 19:33 11/06/18 23:20 11/07/18 04:00 11/07/18 12:25 White Blood Count 12.0 x10^3/uL (4.0-11.0) 10.5 x10^3/uL (4.0-11.0) Red Blood Count 4.48 x10^6/uL (4.30-5.70) 4.04 x10^6/uL (4.30-5.70) Hemoglobin 14.1 g/dL (13.0-17.5) 12.8 g/dL (13.0-17.5) Hematocrit 41.9 % (39.0-53.0) 37.7 % (39.0-53.0) Mean Corpuscular Volume 94 fL (79-100) 93 fL (79-100) Mean Corpuscular Hemoglobin 31 pg (25-35) 32 pg (25-35) Mean Corpuscular Hemoglobin Concent 34 g/dL (31-37) 34 g/dL (31-37) Red Cell Distribution Width 13.8 % (11.5-14.5) 14.1 % (11.5-14.5) Platelet Count 328 x10^3/uL (140-400) 259 x10^3/uL (140-400) Neutrophils (%) (Auto) 69 % (31-73) 70 % (31-73) Lymphocytes (%) (Auto) 19 % (24-48) 15 % (24-48) Monocytes (%) (Auto) 9 % (0-9) 14 % (0-9) Eosinophils (%) (Auto) 3 % (0-3) 1 % (0-3) Basophils (%) (Auto) 1 % (0-3) 0 % (0-3) Neutrophils # (Auto) 8.2 x10^3uL (1.8-7.7) 7.3 x10^3uL (1.8-7.7) Lymphocytes # (Auto) 2.3 x10^3/uL (1.0-4.8) 1.6 x10^3/uL (1.0-4.8) Monocytes # (Auto) 1.0 x10^3/uL (0.0-1.1) 1.5 x10^3/uL (0.0-1.1) Eosinophils # (Auto) 0.3 x10^3/uL (0.0-0.7) 0.1 x10^3/uL (0.0-0.7) Basophils # (Auto) 0.1 x10^3/uL (0.0-0.2) 0.0 x10^3/uL (0.0-0.2) Prothrombin Time 12.8 SEC (11.7-14.0) Prothromb Time International Ratio 1.0 (0.8-1.1) Sodium Level 144 mmol/L (136-145) Potassium Level 3.7 mmol/L (3.5-5.1) Chloride Level 103 mmol/L (98-107) Carbon Dioxide Level 32 mmol/L (21-32) Anion Gap 9 (6-14) Blood Urea Nitrogen 12 mg/dL (8-26) Creatinine 1.1 mg/dL (0.7-1.3) Estimated GFR (Cockcroft-Gault) 68.3 BUN/Creatinine Ratio 11 (6-20) Glucose Level 152 mg/dL (70-99) Calcium Level 8.6 mg/dL (8.5-10.1) Total Bilirubin 0.4 mg/dL (0.2-1.0) Aspartate Amino Transf (AST/SGOT) 108 U/L (15-37) Alanine Aminotransferase (ALT/SGPT) 83 U/L (16-63) Alkaline Phosphatase 47 U/L (46-116) Total Protein 7.0 g/dL (6.4-8.2) Albumin 4.0 g/dL (3.4-5.0) Albumin/Globulin Ratio 1.3 (1.0-1.7) Nasal Screen MRSA (PCR) Negative (Negative) Creatine Kinase 476 U/L (39-308) Urine Collection Type Unknown Urine Color Yellow Urine Clarity Clear Urine pH 6.5 Urine Specific [place] >=1.030 Urine Protein Negative mg/dL (NEG-TRACE) Urine Glucose (UA) Negative mg/dL (NEG) Urine Ketones (Stick) Negative mg/dL (NEG) Urine Blood Small (NEG) Urine Nitrite Negative (NEG) Urine Bilirubin Negative (NEG) Urine Urobilinogen Dipstick 0.2 mg/dL (0.2 mg/dL) Urine Leukocyte Esterase Negative (NEG) Urine RBC 3-5 /HPF (0-2) Urine WBC Occ /HPF (0-4) Urine Squamous Epithelial Cells Occ /LPF Urine Bacteria 0 /HPF (0-FEW) Urine Mucus Slight /LPF Test 11/08/18 04:06 11/08/18 04:28 Sodium Level 141 mmol/L (136-145) Potassium Level 3.7 mmol/L (3.5-5.1) Chloride Level 104 mmol/L (98-107) Carbon Dioxide Level 26 mmol/L (21-32) Anion Gap 11 (6-14) Blood Urea Nitrogen 9 mg/dL (8-26) Creatinine 0.7 mg/dL (0.7-1.3) Estimated GFR (Cockcroft-Gault) 115.0 BUN/Creatinine Ratio 13 (6-20) Glucose Level 110 mg/dL (70-99) Calcium Level 8.5 mg/dL (8.5-10.1) Total Bilirubin 0.8 mg/dL (0.2-1.0) Aspartate Amino Transf (AST/SGOT) 24 U/L (15-37) Alanine Aminotransferase (ALT/SGPT) 39 U/L (16-63) Alkaline Phosphatase 40 U/L (46-116) Total Protein 6.3 g/dL (6.4-8.2) Albumin 3.1 g/dL (3.4-5.0) Albumin/Globulin Ratio 1.0 (1.0-1.7) White Blood Count 11.9 x10^3/uL (4.0-11.0) Red Blood Count 4.17 x10^6/uL (4.30-5.70) Hemoglobin 12.7 g/dL (13.0-17.5) Hematocrit 38.9 % (39.0-53.0) Mean Corpuscular Volume 93 fL (79-100) Mean Corpuscular Hemoglobin 30 pg (25-35) Mean Corpuscular Hemoglobin Concent 33 g/dL (31-37) Red Cell Distribution Width 13.7 % (11.5-14.5) Platelet Count 257 x10^3/uL (140-400) Neutrophils (%) (Auto) 75 % (31-73) Lymphocytes (%) (Auto) 11 % (24-48) Monocytes (%) (Auto) 13 % (0-9) Eosinophils (%) (Auto) 1 % (0-3) Basophils (%) (Auto) 0 % (0-3) Neutrophils # (Auto) 8.9 x10^3uL (1.8-7.7) Lymphocytes # (Auto) 1.3 x10^3/uL (1.0-4.8) Monocytes # (Auto) 1.6 x10^3/uL (0.0-1.1) Eosinophils # (Auto) 0.1 x10^3/uL (0.0-0.7) Basophils # (Auto) 0.0 x10^3/uL (0.0-0.2) Laboratory Tests Test 11/07/18 12:25 3/24/19 04:06 11/08/18 04:28 Urine Collection Type Unknown Urine Color Yellow Urine Clarity Clear Urine pH 6.5 Urine Specific [place] >=1.030 Urine Protein Negative mg/dL (NEG-TRACE) Urine Glucose (UA) Negative mg/dL (NEG) Urine Ketones (Stick) Negative mg/dL (NEG) Urine Blood Small (NEG) Urine Nitrite Negative (NEG) Urine Bilirubin Negative (NEG) Urine Urobilinogen Dipstick 0.2 mg/dL (0.2 mg/dL) Urine Leukocyte Esterase Negative (NEG) Urine RBC 3-5 /HPF (0-2) Urine WBC Occ /HPF (0-4) Urine Squamous Epithelial Cells Occ /LPF Urine Bacteria 0 /HPF (0-FEW) Urine Mucus Slight /LPF Sodium Level 141 mmol/L (136-145) Potassium Level 3.7 mmol/L (3.5-5.1) Chloride Level 104 mmol/L (98-107) Carbon Dioxide Level 26 mmol/L (21-32) Anion Gap 11 (6-14) Blood Urea Nitrogen 9 mg/dL (8-26) Creatinine 0.7 mg/dL (0.7-1.3) Estimated GFR (Cockcroft-Gault) 115.0 BUN/Creatinine Ratio 13 (6-20) Glucose Level 110 mg/dL (70-99) Calcium Level 8.5 mg/dL (8.5-10.1) Total Bilirubin 0.8 mg/dL (0.2-1.0) Aspartate Amino Transf (AST/SGOT) 24 U/L (15-37) Alanine Aminotransferase (ALT/SGPT) 39 U/L (16-63) Alkaline Phosphatase 40 U/L (46-116) Total Protein 6.3 g/dL (6.4-8.2) Albumin 3.1 g/dL (3.4-5.0) Albumin/Globulin Ratio 1.0 (1.0-1.7) White Blood Count 11.9 x10^3/uL (4.0-11.0) Red Blood Count 4.17 x10^6/uL (4.30-5.70) Hemoglobin 12.7 g/dL (13.0-17.5) Hematocrit 38.9 % (39.0-53.0) Mean Corpuscular Volume 93 fL (79-100) Mean Corpuscular Hemoglobin 30 pg (25-35) Mean Corpuscular Hemoglobin Concent 33 g/dL (31-37) Red Cell Distribution Width 13.7 % (11.5-14.5) Platelet Count 257 x10^3/uL (140-400) Neutrophils (%) (Auto) 75 % (31-73) Lymphocytes (%) (Auto) 11 % (24-48) Monocytes (%) (Auto) 13 % (0-9) Eosinophils (%) (Auto) 1 % (0-3) Basophils (%) (Auto) 0 % (0-3) Neutrophils # (Auto) 8.9 x10^3uL (1.8-7.7) Lymphocytes # (Auto) 1.3 x10^3/uL (1.0-4.8) Monocytes # (Auto) 1.6 x10^3/uL (0.0-1.1) Eosinophils # (Auto) 0.1 x10^3/uL (0.0-0.7) Basophils # (Auto) 0.0 x10^3/uL (0.0-0.2) Medications Current Medications Sodium Chloride 500 ml @ 500 mls/hr 1X ONCE IV Last administered on at 20:02; Start 11/06/18 at 19:45; Stop 11/06/18 at 20:44; Status DC Fentanyl Citrate (Fentanyl 2ml Vial) 50 mcg 1X ONCE IV Last administered on at 20:32; Start 11/06/18 at 19:45; Stop 11/06/18 at 19:46; Status DC Ketamine HCl (Ketamine) 50 mg 1X ONCE IV Last administered on 11/06/18at 20:15 ; Start 11/06/18 at 20:00; Stop 11/06/18 at 20:01; Status DC Lidocaine HCl 20 ml STK-MED ONCE .ROUTE ; Start 11/06/18 at 20:18; Stop at 20:19; Status DC Sodium Chloride 1,000 ml @ 1,000 mls/hr 1X ONCE IV Last administered on at 20:14; Start 11/06/18 at 21:00; Stop 11/06/18 at 21:59; Status DC Lidocaine HCl 40 ml 1X ONCE IJ Last administered on 11/06/18at 20:16; Start at 21:15; Stop 11/06/18 at 21:16; Status DC Ondansetron HCl (Zofran) 4 mg PRN Q8HRS PRN IV NAUSEA/VOMITING; Start 11/06/18 at 22:15; Stop 11/07/18 at 11:54; Status DC Morphine Sulfate (Morphine Sulfate) 4 mg PRN Q2HR PRN IV PAIN Last administered on 11/07/18at 07:47; Start 11/06/18 at 22:15; Stop 11/07/18 at 12:05 ; Status DC Sodium Chloride 1,000 ml @ 75 mls/hr [id number] IV Last administered on at 12:08; Start 11/06/18 at 22:15; Stop 11/07/18 at 22:14; Status DC Iohexol (Omnipaque 240 Mg/ml) 30 ml 1X ONCE PO Last administered on 11/07/18at 10:30; Start 11/07/18 at 09:00; Stop 11/07/18 at 09:01; Status DC Iohexol (Omnipaque 300 Mg/ml) 75 ml 1X ONCE IV Last administered on 11/07/18at 10:30; Start 11/07/18 at 09:00; Stop 11/07/18 at 09:01; Status DC Docusate Sodium (Colace) 100 mg DAILY PO Last administered on 11/08/18at 08:49; Start 11/07/18 at 13:00 Ondansetron HCl (Zofran) 4 mg PRN Q6HRS PRN IV NAUSEA/VOMITING; Start 11/07/18 at 12:00 Acetaminophen/ Hydrocodone Bitart (Lortab 7.5/325) 1 tab PRN Q6HRS PRN PO PAIN Last administered on 11/08/18at 10:29; Start 11/07/18 at 12:00 Polyethylene Glycol (miraLAX PACKET) 17 gm DAILY PO ; Start 11/07/18 at 13:00 Enoxaparin Sodium (Lovenox 40mg Syringe) 40 mg Q24H SQ Last administered on at 17:13; Start 11/07/18 at 13:00 Pantoprazole Sodium (Protonix) 40 mg DAILYAC PO Last administered on 11/08/18at 08:50; Start 11/07/18 at 13:00 Fentanyl Citrate (Fentanyl 2ml Vial) 25 mcg PRN Q2HR PRN IV PAIN; Start at 12:00 Albuterol/ Ipratropium (Duoneb) 3 ml RTQID NEB Last administered on 11/08/18at 08:52; Start 11/07/18 at 13:00 Iohexol (Omnipaque 300 Mg/ml) 400 ml 1X ONCE PO Last administered on at 13:00; Start 11/07/18 at 13:00; Stop 11/07/18 at 13:01; Status DC Vitals/I & O Vital Sign - Last 24 Hours 11/07/18 11/07/18 11/07/18 11/07/18 11:02 12:00 12:00 12:11 Temp 99.3 99.4 99.3 99.4 Pulse 99 114 Resp 2 20 19 B/P (MAP) 111/59 (76) 115/54 (74) Pulse Ox 96 98 94 O2 Delivery Nasal Cannula Nasal Cannula Nasal Cannula Nasal Cannula O2 Flow Rate 2.0 2.0 2.0 2.0 11/07/18 11/07/18 11/07/18 11/07/18 12:44 13:00 14:00 15:16 Temp 99.5 99.3 99.5 99.5 99.3 99.5 Pulse 77 65 89 Resp 19 21 20 B/P (MAP) 112/74 (87) 115/80 (92) 115/74 (88) Pulse Ox 96 95 95 O2 Delivery Nasal Cannula Nasal Cannula Nasal Cannula Nasal Cannula O2 Flow Rate 2.0 2.0 2.0 11/07/18 11/07/18 11/07/18 11/07/18 16:00 16:00 16:27 17:00 Temp 99.7 99.7 Pulse 72 91 Resp 19 22 B/P (MAP) 105/58 (74) 106/58 (74) Pulse Ox 92 92 93 O2 Delivery Room Air Room Air Room Air Room Air 11/07/18 11/07/18 11/07/18 11/07/18 18:00 19:00 19:16 19:34 Pulse 72 93 Resp 20 31 21 B/P (MAP) 110/58 (75) 116/62 (80) Pulse Ox 93 90 95 96 O2 Delivery Room Air Nasal Cannula Nasal Cannula Nasal Cannula O2 Flow Rate 2.0 2.0 2.0 11/07/18 11/07/18 11/07/18 11/07/18 20:00 20:00 21:00 22:00 Temp 100.1 100.1 Pulse 78 79 79 Resp 17 B/P (MAP) 111/62 (78) 113/64 (80) 107/66 (80) Pulse Ox 97 97 96 O2 Delivery Nasal Cannula Nasal Cannula Nasal Cannula Nasal Cannula O2 Flow Rate 2.0 2.0 2.0 2.0 11/07/18 11/08/18 11/08/18 11/08/18 23:00 00:00 00:00 01:00 Temp 99.5 99.5 Pulse 77 74 73 Resp 23 B/P (MAP) 109/65 (80) 116/65 (82) 111/63 (79) Pulse Ox 97 97 97 O2 Delivery Nasal Cannula Nasal Cannula Nasal Cannula Nasal Cannula O2 Flow Rate 2.0 2.0 2.0 2.0 11/08/18 11/08/18 11/08/18 11/08/18 02:00 03:00 03:34 04:00 Pulse 74 75 Resp 19 B/P (MAP) 113/65 (81) 114/75 (88) Pulse Ox 97 96 O2 Delivery Nasal Cannula Nasal Cannula Nasal Cannula Nasal Cannula O2 Flow Rate 2.0 2.0 2.0 2.0 11/08/18 11/08/18 11/08/18 11/08/18 04:00 04:34 05:00 06:00 Temp 99.3 99.3 Pulse 71 65 70 Resp 18 18 18 21 B/P (MAP) 122/70 (87) 118/69 (85) 113/71 (85) Pulse Ox 96 18 97 97 O2 Delivery Nasal Cannula Nasal Cannula Nasal Cannula Nasal Cannula O2 Flow Rate 2.0 2.0 2.0 2.0 11/08/18 11/08/18 11/08/18 11/08/18 07:00 08:00 08:00 08:52 Temp 99.1 99.1 Pulse 71 70 Resp 22 B/P (MAP) 124/68 (86) 120/56 (77) Pulse Ox 93 93 O2 Delivery Room Air Room Air Room Air Room Air 11/08/18 11/08/18 11/08/18 09:00 10:00 10:29 Pulse 88 85 Resp 20 19 B/P (MAP) 114/61 (78) 112/63 (79) Pulse Ox 93 92 O2 Delivery Room Air Room Air Room Air Intake and Output 11/07/18 11/07/18 11/08/18 14:59 22:59 06:59 Intake Total 434 ml 1275 ml Output Total 152 ml 1000 ml 650 ml Balance -152 ml -566 ml 625 ml MARYAN MESSINA MD Nov 08, 2018 10:37
[2018-11-08] MEDS: ENOXAPARIN 40 MG/0.4 ML SYRINGE. SQ SCH (14:05)
--- NOTE | 2018-11-08 15:07 | CARD ---
MR#: [id number] Date of Study: 11/08/2018 Ordering Physician: RAULITO WATT, Referring Physician: ADIEL CASTRO Tech: Gwen Lester ESTHER APPROVED REPORT EXAM: Two-dimensional and M-mode echocardiogram with Doppler and color Doppler. Other Information Quality : AverageHR: 75bpm Rhythm : NSRTechnically limited study due to pneumothrax. INDICATION Aorta Dilation 2D DIMENSIONS RVDd3.6 (2.9-3.5cm)Left Atrium(2D)3.4 (1.6-4.0cm) IVSd1.0 (0.7-1.1cm)Aortic Root(2D)4.0 (2.0-3.7cm) LVDd4.9 (3.9-5.9cm)LVOT Diameter2.4 (1.8-2.4cm) PWd1.0 (0.7-1.1cm)LVDs3.2 (2.5-4.0cm) FS (%) 35.8 %SV75.2 ml LVEF(%)65.2 (>50%) M-Mode DIMENSIONS Left Atrium(MM)3.44 (2.5-4.0cm)Aortic Root3.98 (2.2-3.7cm) Aortic Valve AoV Peak Dominick.168.9cm/sAoV VTI26.4cm AO Peak GR.11.4mmHgLVOT Peak Dominick.102.4cm/s AO Mean GR.6mmHgAVA (VMAX)2.77cm2 LISA (VTI)2.80cm2 Mitral Valve MV E Jsbdqgtc51.5cm/sMV DECEL THHM010he MV A Irxwvccx08.7cm/sE/A Ratio0.9 MV A [id number] Pulmonary Valve PV Peak Tyjrtsqw88.9cm/s LEFT VENTRICLE The left ventricle is normal size. There is normal left ventricular wall thickness. The left ventricu lar systolic function is normal and the ejection fraction is within normal range. The Ejection Fracti on is 55-60%. There is normal LV segmental wall motion. Transmitral Doppler flow pattern is Grade I-a bnormal relaxation pattern. RIGHT VENTRICLE The right ventricle is normal size. There is normal right ventricular wall thickness. The right ventr icular systolic function is normal. ATRIA The left atrium size is normal. The right atrium size is normal. The interatrial septum is intact wit h no evidence for an atrial septal defect or patent foramen ovale as noted on 2-D or Doppler imaging. AORTIC VALVE The aortic valve is bicuspid. The aortic valve is mildly thickened but opens well. Doppler and Color Flow revealed no significant aortic regurgitation. There is no significant aortic valvular stenosis. There is no aortic valvular vegetation. MITRAL VALVE The mitral valve is thickened but opens well. There is no evidence of mitral valve prolapse. There is no mitral valve stenosis. Doppler and Color Flow revealed no mitral valve regurgitation noted. TRICUSPID VALVE The tricuspid valve is normal in structure and function. Doppler and Color Flow revealed trace tricus pid regurgitation. There is no tricuspid valve prolapse or vegetation. There is no tricuspid valve st enosis. PULMONIC VALVE The pulmonic valve is not well visualized. GREAT VESSELS The aortic root is mildly enlarged at 4.0cm. The ascending aorta is Moderately dilated at 4.7cm. PERICARDIAL EFFUSION There is no evidence of significant pericardial effusion. Critical Notification Critical Value: No <Conclusion> The left ventricle is normal size. The left ventricular systolic function is normal and the ejection fraction is within normal range. The Ejection Fraction is 55-60%. There is no significant aortic valvular stenosis. Doppler and Color Flow revealed no significant aortic regurgitation. Doppler and Color Flow revealed no mitral valve regurgitation noted. Doppler and Color Flow revealed trace tricuspid regurgitation. The aortic root is mildly enlarged at 4.0cm. The ascending aorta is Moderately dilated at 4.7cm. There is no evidence of significant pericardial effusion. Signed by : Raulito Watt MD Electronically Approved : 11/08/2018 15:06:37
--- NOTE | 2018-11-08 16:09 | PDOC2 ---
CONSULT Date of Consult Date of Consult DATE: 11/08/18 TIME: 16:04 Reason for Consult Reason for Consult: Aortic dilatation. Referring Physician Referring Physician: Dr. Caldwell. Identification/Chief Complaint Chief Complaint Chest pain. Source Source: Chart review, Patient History of Present Illness Reason for Visit: The patient is a 58-year-old male who fell at work yesterday from a ladder striking his chest. He was brought to the emergency room with significant chest pain. Imaging showed a right pneumothorax and a chest tube was placed. Patient also had several rib fractures. Scanning showed dilatation of the aortic root and ascending aorta but no evidence of dissection. We are asked to review the patient. This morning he is feeling relatively well. His pain has greatly decreased but has not resolved. Chest tube is in place. He has no history of hypertension, coronary artery disease, congestive heart failure or cardiac arrhythmias. Echocardiogram today showed normal LV systolic function. The aortic root is mildly dilated at 4.0 and the ascending aorta is mild to moderately dilated 4.7 cm. The patient has no pericardial effusion. Past Medical History Cardiovascular: No pertinent hx Past Surgical History Past Surgical History: Other (ureter reimplantation ) Family History Family History: No Significant Social History <1 pack per day (cigars) ALCOHOL: occassional Drugs: None Current Problem List Problem List Problems Medical Problems: (1) Rib fractures Status: Acute Current Medications Current Medications Current Medications Sodium Chloride 500 ml @ 500 mls/hr 1X ONCE IV Last administered on at 20:02; Start 11/06/18 at 19:45; Stop 11/06/18 at 20:44; Status DC Fentanyl Citrate (Fentanyl 2ml Vial) 50 mcg 1X ONCE IV Last administered on at 20:32; Start 11/06/18 at 19:45; Stop 11/06/18 at 19:46; Status DC Ketamine HCl (Ketamine) 50 mg 1X ONCE IV Last administered on 11/06/18at 20:15 ; Start 11/06/18 at 20:00; Stop 11/06/18 at 20:01; Status DC Lidocaine HCl 20 ml STK-MED ONCE .ROUTE ; Start 11/06/18 at 20:18; Stop at 20:19; Status DC Sodium Chloride 1,000 ml @ 1,000 mls/hr 1X ONCE IV Last administered on at 20:14; Start 11/06/18 at 21:00; Stop 11/06/18 at 21:59; Status DC Lidocaine HCl 40 ml 1X ONCE IJ Last administered on 11/06/18 20:16; Start at 21:15; Stop 11/06/18 at 21:16; Status DC Ondansetron HCl (Zofran) 4 mg PRN Q8HRS PRN IV NAUSEA/VOMITING; Start 11/06/18 at 22:15; Stop 11/07/18 at 11:54; Status DC Morphine Sulfate (Morphine Sulfate) 4 mg PRN Q2HR PRN IV PAIN Last administered on 11/07/18 07:47; Start 11/06/18 at 22:15; Stop 11/07/18 at 12:05 ; Status DC Sodium Chloride 1,000 ml @ 75 mls/hr [id number] IV Last administered on 12:08; Start 11/06/18 at 22:15; Stop 11/07/18 at 22:14; Status DC Iohexol (Omnipaque 240 Mg/ml) 30 ml 1X ONCE PO Last administered on 11/07/18 10:30; Start 11/07/18 at 09:00; Stop 11/07/18 at 09:01; Status DC Iohexol (Omnipaque 300 Mg/ml) 75 ml 1X ONCE IV Last administered on 11/07/18 10:30; Start 11/07/18 at 09:00; Stop 11/07/18 at 09:01; Status DC Docusate Sodium (Colace) 100 mg DAILY PO Last administered on 11/08/18 08:49; Start 11/07/18 at 13:00 Ondansetron HCl (Zofran) 4 mg PRN Q6HRS PRN IV NAUSEA/VOMITING; Start 11/07/18 at 12:00 Acetaminophen/ Hydrocodone Bitart (Lortab 7.5/325) 1 tab PRN Q6HRS PRN PO PAIN Last administered on 11/08/18 10:29; Start 11/07/18 at 12:00 Polyethylene Glycol (miraLAX PACKET) 17 gm DAILY PO ; Start 11/07/18 at 13:00 Enoxaparin Sodium (Lovenox 40mg Syringe) 40 mg Q24H SQ Last administered on at 14:05; Start 11/07/18 at 13:00 Pantoprazole Sodium (Protonix) 40 mg DAILYAC PO Last administered on 11/08/18at 08:50; Start 11/07/18 at 13:00 Fentanyl Citrate (Fentanyl 2ml Vial) 25 mcg PRN Q2HR PRN IV PAIN; Start at 12:00 Albuterol/ Ipratropium (Duoneb) 3 ml RTQID NEB Last administered on 11/08/18at 11:59; Start 11/07/18 at 13:00 Iohexol (Omnipaque 300 Mg/ml) 400 ml 1X ONCE PO Last administered on at 13:00; Start 11/07/18 at 13:00; Stop 11/07/18 at 13:01; Status DC Allergies Allergies: Coded Allergies: No Known Drug Allergies (Unverified , 11/06/18) ROS Respiratory: YES: Shortness of breath Cardiovascular: yes Chest Pain Physical Exam General: mild distress Lungs: Other (mildly decreased breath sounds) Heart: Regular rate Abdomen: Normal bowel sounds Vitals VITALS Vital Signs Date Time Temp Pulse Resp B/P (MAP) Pulse Ox O2 Delivery O2 Flow Rate FiO2 11/08/18 15:00 81 19 113/67 (82) 96 Nasal Cannula 2.0 11/08/18 12:00 99.0 99.0 Labs Labs Laboratory Tests Test 11/06/18 19:33 11/06/18 23:20 11/07/18 04:00 11/07/18 12:25 White Blood Count 12.0 x10^3/uL (4.0-11.0) 10.5 x10^3/uL (4.0-11.0) Red Blood Count 4.48 x10^6/uL (4.30-5.70) 4.04 x10^6/uL (4.30-5.70) Hemoglobin 14.1 g/dL (13.0-17.5) 12.8 g/dL (13.0-17.5) Hematocrit 41.9 % (39.0-53.0) 37.7 % (39.0-53.0) Mean Corpuscular Volume 94 fL (79-100) 93 fL (79-100) Mean Corpuscular Hemoglobin 31 pg (25-35) 32 pg (25-35) Mean Corpuscular Hemoglobin Concent 34 g/dL (31-37) 34 g/dL (31-37) Red Cell Distribution Width 13.8 % (11.5-14.5) 14.1 % (11.5-14.5) Platelet Count 328 x10^3/uL (140-400) 259 x10^3/uL (140-400) Neutrophils (%) (Auto) 69 % (31-73) 70 % (31-73) Lymphocytes (%) (Auto) 19 % (24-48) 15 % (24-48) Monocytes (%) (Auto) 9 % (0-9) 14 % (0-9) Eosinophils (%) (Auto) 3 % (0-3) 1 % (0-3) Basophils (%) (Auto) 1 % (0-3) 0 % (0-3) Neutrophils # (Auto) 8.2 x10^3uL (1.8-7.7) 7.3 x10^3uL (1.8-7.7) Lymphocytes # (Auto) 2.3 x10^3/uL (1.0-4.8) 1.6 x10^3/uL (1.0-4.8) Monocytes # (Auto) 1.0 x10^3/uL (0.0-1.1) 1.5 x10^3/uL (0.0-1.1) Eosinophils # (Auto) 0.3 x10^3/uL (0.0-0.7) 0.1 x10^3/uL (0.0-0.7) Basophils # (Auto) 0.1 x10^3/uL (0.0-0.2) 0.0 x10^3/uL (0.0-0.2) Prothrombin Time 12.8 SEC (11.7-14.0) Prothromb Time International Ratio 1.0 (0.8-1.1) Sodium Level 144 mmol/L (136-145) Potassium Level 3.7 mmol/L (3.5-5.1) Chloride Level 103 mmol/L (98-107) Carbon Dioxide Level 32 mmol/L (21-32) Anion Gap 9 (6-14) Blood Urea Nitrogen 12 mg/dL (8-26) Creatinine 1.1 mg/dL (0.7-1.3) Estimated GFR (Cockcroft-Gault) 68.3 BUN/Creatinine Ratio 11 (6-20) Glucose Level 152 mg/dL (70-99) Calcium Level 8.6 mg/dL (8.5-10.1) Total Bilirubin 0.4 mg/dL (0.2-1.0) Aspartate Amino Transf (AST/SGOT) 108 U/L (15-37) Alanine Aminotransferase (ALT/SGPT) 83 U/L (16-63) Alkaline Phosphatase 47 U/L (46-116) Total Protein 7.0 g/dL (6.4-8.2) Albumin 4.0 g/dL (3.4-5.0) Albumin/Globulin Ratio 1.3 (1.0-1.7) Nasal Screen MRSA (PCR) Negative (Negative) Creatine Kinase 476 U/L (39-308) Urine Collection Type Unknown Urine Color Yellow Urine Clarity Clear Urine pH 6.5 Urine Specific [place] >=1.030 Urine Protein Negative mg/dL (NEG-TRACE) Urine Glucose (UA) Negative mg/dL (NEG) Urine Ketones (Stick) Negative mg/dL (NEG) Urine Blood Small (NEG) Urine Nitrite Negative (NEG) Urine Bilirubin Negative (NEG) Urine Urobilinogen Dipstick 0.2 mg/dL (0.2 mg/dL) Urine Leukocyte Esterase Negative (NEG) Urine RBC 3-5 /HPF (0-2) Urine WBC Occ /HPF (0-4) Urine Squamous Epithelial Cells Occ /LPF Urine Bacteria 0 /HPF (0-FEW) Urine Mucus Slight /LPF Test 11/08/18 04:06 11/08/18 04:28 Sodium Level 141 mmol/L (136-145) Potassium Level 3.7 mmol/L (3.5-5.1) Chloride Level 104 mmol/L (98-107) Carbon Dioxide Level 26 mmol/L (21-32) Anion Gap 11 (6-14) Blood Urea Nitrogen 9 mg/dL (8-26) Creatinine 0.7 mg/dL (0.7-1.3) Estimated GFR (Cockcroft-Gault) 115.0 BUN/Creatinine Ratio 13 (6-20) Glucose Level 110 mg/dL (70-99) Calcium Level 8.5 mg/dL (8.5-10.1) Total Bilirubin 0.8 mg/dL (0.2-1.0) Aspartate Amino Transf (AST/SGOT) 24 U/L (15-37) Alanine Aminotransferase (ALT/SGPT) 39 U/L (16-63) Alkaline Phosphatase 40 U/L (46-116) Total Protein 6.3 g/dL (6.4-8.2) Albumin 3.1 g/dL (3.4-5.0) Albumin/Globulin Ratio 1.0 (1.0-1.7) White Blood Count 11.9 x10^3/uL (4.0-11.0) Red Blood Count 4.17 x10^6/uL (4.30-5.70) Hemoglobin 12.7 g/dL (13.0-17.5) Hematocrit 38.9 % (39.0-53.0) Mean Corpuscular Volume 93 fL (79-100) Mean Corpuscular Hemoglobin 30 pg (25-35) Mean Corpuscular Hemoglobin Concent 33 g/dL (31-37) Red Cell Distribution Width 13.7 % (11.5-14.5) Platelet Count 257 x10^3/uL (140-400) Neutrophils (%) (Auto) 75 % (31-73) Lymphocytes (%) (Auto) 11 % (24-48) Monocytes (%) (Auto) 13 % (0-9) Eosinophils (%) (Auto) 1 % (0-3) Basophils (%) (Auto) 0 % (0-3) Neutrophils # (Auto) 8.9 x10^3uL (1.8-7.7) Lymphocytes # (Auto) 1.3 x10^3/uL (1.0-4.8) Monocytes # (Auto) 1.6 x10^3/uL (0.0-1.1) Eosinophils # (Auto) 0.1 x10^3/uL (0.0-0.7) Basophils # (Auto) 0.0 x10^3/uL (0.0-0.2) Laboratory Tests Test 11/08/18 04:06 11/08/18 04:28 Sodium Level 141 mmol/L (136-145) Potassium Level 3.7 mmol/L (3.5-5.1) Chloride Level 104 mmol/L (98-107) Carbon Dioxide Level 26 mmol/L (21-32) Anion Gap 11 (6-14) Blood Urea Nitrogen 9 mg/dL (8-26) Creatinine 0.7 mg/dL (0.7-1.3) Estimated GFR (Cockcroft-Gault) 115.0 BUN/Creatinine Ratio 13 (6-20) Glucose Level 110 mg/dL (70-99) Calcium Level 8.5 mg/dL (8.5-10.1) Total Bilirubin 0.8 mg/dL (0.2-1.0) Aspartate Amino Transf (AST/SGOT) 24 U/L (15-37) Alanine Aminotransferase (ALT/SGPT) 39 U/L (16-63) Alkaline Phosphatase 40 U/L (46-116) Total Protein 6.3 g/dL (6.4-8.2) Albumin 3.1 g/dL (3.4-5.0) Albumin/Globulin Ratio 1.0 (1.0-1.7) White Blood Count 11.9 x10^3/uL (4.0-11.0) Red Blood Count 4.17 x10^6/uL (4.30-5.70) Hemoglobin 12.7 g/dL (13.0-17.5) Hematocrit 38.9 % (39.0-53.0) Mean Corpuscular Volume 93 fL (79-100) Mean Corpuscular Hemoglobin 30 pg (25-35) Mean Corpuscular Hemoglobin Concent 33 g/dL (31-37) Red Cell Distribution Width 13.7 % (11.5-14.5) Platelet Count 257 x10^3/uL (140-400) Neutrophils (%) (Auto) 75 % (31-73) Lymphocytes (%) (Auto) 11 % (24-48) Monocytes (%) (Auto) 13 % (0-9) Eosinophils (%) (Auto) 1 % (0-3) Basophils (%) (Auto) 0 % (0-3) Neutrophils # (Auto) 8.9 x10^3uL (1.8-7.7) Lymphocytes # (Auto) 1.3 x10^3/uL (1.0-4.8) Monocytes # (Auto) 1.6 x10^3/uL (0.0-1.1) Eosinophils # (Auto) 0.1 x10^3/uL (0.0-0.7) Basophils # (Auto) 0.0 x10^3/uL (0.0-0.2) Images Images Echo as above. Normal LV systolic function. Mildly dilated aortic root at 4.0 cm. Mild to moderately dilated ascending aorta at 4.7 cm. No pericardial effusion. Assessment/Plan Assessment/Plan 1. Traumatic fall resulting in a pneumothorax. Being treated with a chest tube. Followed by the pulmonary service. 2. Mildly dilated aortic root and ascending aorta. No evidence of dissection or bleed. Echocardiogram shows normal LV systolic function and no pericardial effusion. Agree with present treatment. Patient will require outpatient monitoring from a cardiac viewpoint. 3. Rib fractures. Symptomatic treatment as above. 4. Cigar smoking. Discussed with the patient. Thank you for allowing us to participate in the care of your patient. RAULITO WATT MD Nov 08, 2018 16:09
[2018-11-08] MEDS ORDERED: POLYETHYLENE GLYCOL 3350 17 GM PACKET. PO PRN (18:15)
[2018-11-09] VITALS (18 sets, daily range): BP systolic 93–119; BP diastolic 58–71
[2018-11-09 04:10] LABS: BASO # 0.1 x10^3/uL (0.0-0.2); BASO % 1 % (0-3); EOS # 0.3 x10^3/uL (0.0-0.7); EOS % 2 % (0-3); HEMATOCRIT 38.8 % (39.0-53.0); HEMOGLOBIN 12.8 g/dL (13.0-17.5); LYMPH # 1.6 x10^3/uL (1.0-4.8); LYMPH % 13 % (24-48); MEAN CORPUSCULAR HEMOGLOBIN 31 pg (25-35); MEAN CORPUSCULAR HGB CONC 33 g/dL (31-37); MEAN CORPUSCULAR VOLUME 93 fL (79-100); MONO # 1.4 x10^3/uL (0.0-1.1); MONO % 12 % (0-9); NEUT # 8.6 x10^3uL (1.8-7.7); NEUT % 73 % (31-73); PLATELET COUNT 252 x10^3/uL (140-400); RED BLOOD COUNT 4.19 x10^6/uL (4.30-5.70); RED CELL DISTRIBUTION WIDTH 13.9 % (11.5-14.5); WHITE BLOOD COUNT 11.9 x10^3/uL (4.0-11.0)
[2018-11-09 04:27] LABS: CALCIUM 8.5 mg/dL (8.5-10.1); CREATININE 0.8 mg/dL (0.7-1.3); GFR 98.6; POTASSIUM 3.7 mmol/L (3.5-5.1)
[2018-11-09] MEDS: HYDROcodone/APAP 7.5/325MG 1 TAB TABLET PO PRN ×3 (04:57→18:28)
--- NOTE | 2018-11-09 08:16 | RAD ---
Chest radiograph 11/09/2018 9:00 AM INDICATION: Pneumothorax COMPARISON: November 08, 2018 TECHNIQUE: Portable upright frontal view of the chest is provided. FINDINGS: The cardiomediastinal silhouette is similar in appearance. Right-sided thoracostomy tube is in similar position. Right apical pneumothorax appears resolved. There is extensive subcutaneous emphysema along the right lateral chest wall and right neck base. No significant pleural effusions. There is a retrocardiac density which may represent atelectasis versus infiltrate. Upon a vascular congestion. There is prominence of bowel loops in the left upper abdomen. IMPRESSION: Similar positioning of a right-sided thoracostomy tube. No residual pneumothorax is identified. There is similar degree of subcutaneous emphysema. Electronically signed by: Vivi Acuna MD (11/09/2018 8:13 AM) [id number]
[2018-11-09] MEDS: DOCUSATE SODIUM 100 MG CAPSULE. PO SCH (08:23)
[2018-11-09] MEDS: PANTOPRAZOLE 40 MG TABLET.DR. PO SCH (08:23)
--- NOTE | 2018-11-09 08:46 | PDOC ---
SUBJECTIVE Subjective Pt doing ok this am. Sitting up in chair, eating. No pain or complaints. Going to floor later this am. OBJECTIVE Objective Physical Exam: General appearance: Alert and Oriented Head: Normocephalic, without obvious abnormality Eyes: conjunctivae/corneas clear. PERRL, EOM's intact. Fundi benign Back:Bilateral CVA non tender Lungs: Regular respirations, non labored breathing. + Chest tube in place. Abdomen: soft, non-tender. No masses, no organomegaly Vital Signs Vital Signs Date Time Temp Pulse Resp B/P (MAP) Pulse Ox O2 Delivery O2 Flow Rate FiO2 11/09/18 06:15 74 30 100/66 (77) 93 Nasal Cannula 2.0 11/09/18 05:00 81 20 119/67 (84) 95 Nasal Cannula 2.0 11/09/18 04:08 Nasal Cannula 2.0 11/09/18 04:00 98.6 80 22 107/64 (78) 95 Nasal Cannula 2.0 98.6 11/09/18 03:00 80 22 113/64 (80) 96 Nasal Cannula 2.0 11/09/18 02:00 82 18 110/59 (76) 95 Nasal Cannula 2.0 11/09/18 01:00 84 19 109/64 (79) 95 Nasal Cannula 2.0 11/09/18 00:00 86 22 111/64 (80) 95 Nasal Cannula 2.0 11/08/18 23:31 Nasal Cannula 2.0 11/08/18 23:00 98.1 94 27 107/66 (80) 93 Nasal Cannula 2.0 98.1 11/08/18 22:49 18 Nasal Cannula 2.0 11/08/18 22:00 84 17 104/63 (77) 96 Nasal Cannula 2.0 11/08/18 21:00 84 17 94/58 (70) 96 Nasal Cannula 2.0 11/08/18 20:23 96 Nasal Cannula 1.0 11/08/18 20:00 80 16 99/54 (69) 96 Nasal Cannula 2.0 11/08/18 19:05 Nasal Cannula 2.0 11/08/18 19:00 98.2 84 20 100/54 (69) 96 Nasal Cannula 2.0 98.2 11/08/18 18:14 Nasal Cannula 2.0 11/08/18 18:00 87 22 100/64 (76) 94 Nasal Cannula 2.0 11/08/18 17:19 Nasal Cannula 2.0 11/08/18 17:00 Nasal Cannula 2.0 11/08/18 16:49 Nasal Cannula 2.0 11/08/18 16:24 96 Nasal Cannula 1.0 11/08/18 16:07 Nasal Cannula 2.0 11/08/18 16:00 Nasal Cannula 2.0 11/08/18 16:00 99.1 88 21 140/77 (98) 96 Nasal Cannula 2.0 99.1 11/08/18 15:00 81 19 113/67 (82) 96 Nasal Cannula 2.0 11/08/18 14:00 84 23 104/65 (78) 93 Nasal Cannula 2.0 11/08/18 13:00 85 22 103/65 (78) 95 Nasal Cannula 2.0 11/08/18 12:00 Room Air 11/08/18 12:00 89 Room Air 11/08/18 12:00 99.0 82 20 113/70 (84) 93 Nasal Cannula 2.0 99.0 11/08/18 11:00 88 24 114/70 (85) 92 Room Air 11/08/18 10:29 Room Air 11/08/18 10:00 85 19 112/63 (79) 92 Room Air 11/08/18 09:00 88 20 114/61 (78) 93 Room Air 11/08/18 08:52 Room Air I & O Intake and Output 11/09/18 06:59 Intake Total 950 ml Output Total 1728 ml Balance -778 ml Intake Oral 950 ml Output Urine Total 1725 ml Chest Tube Drainage Total 3 ml PHYSICAL EXAM Physical Exam Physical Exam: General appearance: Alert and Oriented Head: Normocephalic, without obvious abnormality Eyes: conjunctivae/corneas clear. PERRL, EOM's intact. Fundi benign Back:Bilateral CVA non tender Lungs: Regular respirations, non labored breathing. + Chest tube in place. Abdomen: soft, non-tender. No masses, no organomegaly ASSESSMENT/PLAN Assessment/Plan Disussed Dr. Salamanca's recommendation for Mag 3 with lasix scan to check left hydroureter, chronic. Patient is not very enthusiastic about this but will think about it and let us know definitively on Friday whether he wants it or not. Also offered him follow up appointment with Dr. Salamanca as an outpatient. He will think about this also and let us know. No acute intervention is needed. Will check back with patient on Friday. COMMENT Lab Laboratory Tests Test 11/09/18 03:55 White Blood Count 11.9 x10^3/uL (4.0-11.0) Red Blood Count 4.19 x10^6/uL (4.30-5.70) Hemoglobin 12.8 g/dL (13.0-17.5) Hematocrit 38.8 % (39.0-53.0) Mean Corpuscular Volume 93 fL (79-100) Mean Corpuscular Hemoglobin 31 pg (25-35) Mean Corpuscular Hemoglobin Concent 33 g/dL (31-37) Red Cell Distribution Width 13.9 % (11.5-14.5) Platelet Count 252 x10^3/uL (140-400) Neutrophils (%) (Auto) 73 % (31-73) Lymphocytes (%) (Auto) 13 % (24-48) Monocytes (%) (Auto) 12 % (0-9) Eosinophils (%) (Auto) 2 % (0-3) Basophils (%) (Auto) 1 % (0-3) Neutrophils # (Auto) 8.6 x10^3uL (1.8-7.7) Lymphocytes # (Auto) 1.6 x10^3/uL (1.0-4.8) Monocytes # (Auto) 1.4 x10^3/uL (0.0-1.1) Eosinophils # (Auto) 0.3 x10^3/uL (0.0-0.7) Basophils # (Auto) 0.1 x10^3/uL (0.0-0.2) Sodium Level 140 mmol/L (136-145) Potassium Level 3.7 mmol/L (3.5-5.1) Chloride Level 102 mmol/L (98-107) Carbon Dioxide Level 27 mmol/L (21-32) Anion Gap 11 (6-14) Blood Urea Nitrogen 8 mg/dL (8-26) Creatinine 0.8 mg/dL (0.7-1.3) Estimated GFR (Cockcroft-Gault) 98.6 Glucose Level 123 mg/dL (70-99) Calcium Level 8.5 mg/dL (8.5-10.1) RANDAL PACE APRN Nov 09, 2018 08:46
--- NOTE | 2018-11-09 09:26 | PDOC ---
PULMONARY PROGRESS NOTES Subjective NOT MORE SOA Vitals Vital Signs Date Time Temp Pulse Resp B/P (MAP) Pulse Ox O2 Delivery O2 Flow Rate FiO2 11/09/18 06:15 74 30 100/66 (77) 93 Nasal Cannula 2.0 11/09/18 04:00 98.6 98.6 ROS: No Nausea, No Abdominal Pain, No Increase Cough General: Alert, No acute distress Lungs: Clear Cardiovascular: S1 Abdomen: Soft Neuro Exam: Alert Extremities: No Edema Skin: Warm Labs Laboratory Tests Test 11/07/18 12:25 11/08/18 04:06 11/08/18 04:28 11/09/18 03:55 Urine Collection Type Unknown Urine Color Yellow Urine Clarity Clear Urine pH 6.5 Urine Specific [place] >=1.030 Urine Protein Negative mg/dL (NEG-TRACE) Urine Glucose (UA) Negative mg/dL (NEG) Urine Ketones (Stick) Negative mg/dL (NEG) Urine Blood Small (NEG) Urine Nitrite Negative (NEG) Urine Bilirubin Negative (NEG) Urine Urobilinogen Dipstick 0.2 mg/dL (0.2 mg/dL) Urine Leukocyte Esterase Negative (NEG) Urine RBC 3-5 /HPF (0-2) Urine WBC Occ /HPF (0-4) Urine Squamous Epithelial Cells Occ /LPF Urine Bacteria 0 /HPF (0-FEW) Urine Mucus Slight /LPF Sodium Level 141 mmol/L (136-145) 140 mmol/L (136-145) Potassium Level 3.7 mmol/L (3.5-5.1) 3.7 mmol/L (3.5-5.1) Chloride Level 104 mmol/L (98-107) 102 mmol/L (98-107) Carbon Dioxide Level 26 mmol/L (21-32) 27 mmol/L (21-32) Anion Gap 11 (6-14) 11 (6-14) Blood Urea Nitrogen 9 mg/dL (8-26) 8 mg/dL (8-26) Creatinine 0.7 mg/dL (0.7-1.3) 0.8 mg/dL (0.7-1.3) Estimated GFR (Cockcroft-Gault) 115.0 98.6 BUN/Creatinine Ratio 13 (6-20) Glucose Level 110 mg/dL (70-99) 123 mg/dL (70-99) Calcium Level 8.5 mg/dL (8.5-10.1) 8.5 mg/dL (8.5-10.1) Total Bilirubin 0.8 mg/dL (0.2-1.0) Aspartate Amino Transf (AST/SGOT) 24 U/L (15-37) Alanine Aminotransferase (ALT/SGPT) 39 U/L (16-63) Alkaline Phosphatase 40 U/L (46-116) Total Protein 6.3 g/dL (6.4-8.2) Albumin 3.1 g/dL (3.4-5.0) Albumin/Globulin Ratio 1.0 (1.0-1.7) White Blood Count 11.9 x10^3/uL (4.0-11.0) 11.9 x10^3/uL (4.0-11.0) Red Blood Count 4.17 x10^6/uL (4.30-5.70) 4.19 x10^6/uL (4.30-5.70) Hemoglobin 12.7 g/dL (13.0-17.5) 12.8 g/dL (13.0-17.5) Hematocrit 38.9 % (39.0-53.0) 38.8 % (39.0-53.0) Mean Corpuscular Volume 93 fL (79-100) 93 fL (79-100) Mean Corpuscular Hemoglobin 30 pg (25-35) 31 pg (25-35) Mean Corpuscular Hemoglobin Concent 33 g/dL (31-37) 33 g/dL (31-37) Red Cell Distribution Width 13.7 % (11.5-14.5) 13.9 % (11.5-14.5) Platelet Count 257 x10^3/uL (140-400) 252 x10^3/uL (140-400) Neutrophils (%) (Auto) 75 % (31-73) 73 % (31-73) Lymphocytes (%) (Auto) 11 % (24-48) 13 % (24-48) Monocytes (%) (Auto) 13 % (0-9) 12 % (0-9) Eosinophils (%) (Auto) 1 % (0-3) 2 % (0-3) Basophils (%) (Auto) 0 % (0-3) 1 % (0-3) Neutrophils # (Auto) 8.9 x10^3uL (1.8-7.7) 8.6 x10^3uL (1.8-7.7) Lymphocytes # (Auto) 1.3 x10^3/uL (1.0-4.8) 1.6 x10^3/uL (1.0-4.8) Monocytes # (Auto) 1.6 x10^3/uL (0.0-1.1) 1.4 x10^3/uL (0.0-1.1) Eosinophils # (Auto) 0.1 x10^3/uL (0.0-0.7) 0.3 x10^3/uL (0.0-0.7) Basophils # (Auto) 0.0 x10^3/uL (0.0-0.2) 0.1 x10^3/uL (0.0-0.2) Laboratory Tests Test 11/09/18 03:55 White Blood Count 11.9 x10^3/uL (4.0-11.0) Red Blood Count 4.19 x10^6/uL (4.30-5.70) Hemoglobin 12.8 g/dL (13.0-17.5) Hematocrit 38.8 % (39.0-53.0) Mean Corpuscular Volume 93 fL (79-100) Mean Corpuscular Hemoglobin 31 pg (25-35) Mean Corpuscular Hemoglobin Concent 33 g/dL (31-37) Red Cell Distribution Width 13.9 % (11.5-14.5) Platelet Count 252 x10^3/uL (140-400) Neutrophils (%) (Auto) 73 % (31-73) Lymphocytes (%) (Auto) 13 % (24-48) Monocytes (%) (Auto) 12 % (0-9) Eosinophils (%) (Auto) 2 % (0-3) Basophils (%) (Auto) 1 % (0-3) Neutrophils # (Auto) 8.6 x10^3uL (1.8-7.7) Lymphocytes # (Auto) 1.6 x10^3/uL (1.0-4.8) Monocytes # (Auto) 1.4 x10^3/uL (0.0-1.1) Eosinophils # (Auto) 0.3 x10^3/uL (0.0-0.7) Basophils # (Auto) 0.1 x10^3/uL (0.0-0.2) Sodium Level 140 mmol/L (136-145) Potassium Level 3.7 mmol/L (3.5-5.1) Chloride Level 102 mmol/L (98-107) Carbon Dioxide Level 27 mmol/L (21-32) Anion Gap 11 (6-14) Blood Urea Nitrogen 8 mg/dL (8-26) Creatinine 0.8 mg/dL (0.7-1.3) Estimated GFR (Cockcroft-Gault) 98.6 Glucose Level 123 mg/dL (70-99) Calcium Level 8.5 mg/dL (8.5-10.1) Comments CXR NO ptx, right sc air Impression . 1. Status post mechanical fall resulting in right apical pneumothorax and pneumomediastinum along with right 5th through 8th rib fractures with displacement, status post right chest tube. 2. Small tiny right lower lobe effusion, likely tiny hemothorax. There is also parenchymal abnormality, likely lung contusion. 3. Minimal history of cigar use. 4. [id number]-[id number] left hydroureteronephrosis with no obstructive calculi. Plan . NO AIR LEAK WILL CLAMP TUBE AND CHECK CXR IN [address] chest tube to water seal. No air leak seen. 2. Follow daily chest x-rays. 3. The pneumomediastinum should resolve by itself. No intervention is required. 4. Adequate pain control. 5. Incentive spirometry. 6. P.r.n. bronchodilators. 7. Discussed with RN and ALESSANDRA GUERRIER MD Nov 09, 2018 09:26
[2018-11-09] MEDS: IPRATRPIUM/ALBUTEROL 0.5/2.5MG 3 ML NEBU. NEB SCH ×4 (09:40→19:45)
--- NOTE | 2018-11-09 10:03 | NUR ---
Patient up to chair this am. Patients CT to H2O seal. No air leaks. Patient reports minimal pain and well controlled with oral pain medications. Patient ambulating with stand by assist. Plan to downgrade patient when ok with physicians.
--- NOTE | 2018-11-09 10:08 | PDOC ---
OSIEL JACINTO [employer] 11/09/18 1008: SURGICAL PROGRESS NOTE Subjective reports just back to bed, had been up all morning pain managed no soa Vital Signs Vital Signs Date Time Temp Pulse Resp B/P (MAP) Pulse Ox O2 Delivery O2 Flow Rate FiO2 11/09/18 09:40 95 Nasal Cannula 1.0 11/09/18 09:00 84 30 97/64 (75) 11/09/18 07:00 98.6 98.6 I&O Intake and Output 11/09/18 07:00 Intake Total 950 ml Output Total 1378 ml Balance -428 ml Intake Oral 950 ml Output Urine Total 1375 ml Chest Tube Drainage Total 3 ml General: Alert, Oriented X3, Cooperative, No acute distress Abdomen: Soft, No tenderness Labs Laboratory Tests Test 11/07/18 12:25 11/08/18 04:06 11/08/18 04:28 11/09/18 03:55 Urine Collection Type Unknown Urine Color Yellow Urine Clarity Clear Urine pH 6.5 Urine Specific [place] >=1.030 Urine Protein Negative mg/dL (NEG-TRACE) Urine Glucose (UA) Negative mg/dL (NEG) Urine Ketones (Stick) Negative mg/dL (NEG) Urine Blood Small (NEG) Urine Nitrite Negative (NEG) Urine Bilirubin Negative (NEG) Urine Urobilinogen Dipstick 0.2 mg/dL (0.2 mg/dL) Urine Leukocyte Esterase Negative (NEG) Urine RBC 3-5 /HPF (0-2) Urine WBC Occ /HPF (0-4) Urine Squamous Epithelial Cells Occ /LPF Urine Bacteria 0 /HPF (0-FEW) Urine Mucus Slight /LPF Sodium Level 141 mmol/L (136-145) 140 mmol/L (136-145) Potassium Level 3.7 mmol/L (3.5-5.1) 3.7 mmol/L (3.5-5.1) Chloride Level 104 mmol/L (98-107) 102 mmol/L (98-107) Carbon Dioxide Level 26 mmol/L (21-32) 27 mmol/L (21-32) Anion Gap 11 (6-14) 11 (6-14) Blood Urea Nitrogen 9 mg/dL (8-26) 8 mg/dL (8-26) Creatinine 0.7 mg/dL (0.7-1.3) 0.8 mg/dL (0.7-1.3) Estimated GFR (Cockcroft-Gault) 115.0 98.6 BUN/Creatinine Ratio 13 (6-20) Glucose Level 110 mg/dL (70-99) 123 mg/dL (70-99) Calcium Level 8.5 mg/dL (8.5-10.1) 8.5 mg/dL (8.5-10.1) Total Bilirubin 0.8 mg/dL (0.2-1.0) Aspartate Amino Transf (AST/SGOT) 24 U/L (15-37) Alanine Aminotransferase (ALT/SGPT) 39 U/L (16-63) Alkaline Phosphatase 40 U/L (46-116) Total Protein 6.3 g/dL (6.4-8.2) Albumin 3.1 g/dL (3.4-5.0) Albumin/Globulin Ratio 1.0 (1.0-1.7) White Blood Count 11.9 x10^3/uL (4.0-11.0) 11.9 x10^3/uL (4.0-11.0) Red Blood Count 4.17 x10^6/uL (4.30-5.70) 4.19 x10^6/uL (4.30-5.70) Hemoglobin 12.7 g/dL (13.0-17.5) 12.8 g/dL (13.0-17.5) Hematocrit 38.9 % (39.0-53.0) 38.8 % (39.0-53.0) Mean Corpuscular Volume 93 fL (79-100) 93 fL (79-100) Mean Corpuscular Hemoglobin 30 pg (25-35) 31 pg (25-35) Mean Corpuscular Hemoglobin Concent 33 g/dL (31-37) 33 g/dL (31-37) Red Cell Distribution Width 13.7 % (11.5-14.5) 13.9 % (11.5-14.5) Platelet Count 257 x10^3/uL (140-400) 252 x10^3/uL (140-400) Neutrophils (%) (Auto) 75 % (31-73) 73 % (31-73) Lymphocytes (%) (Auto) 11 % (24-48) 13 % (24-48) Monocytes (%) (Auto) 13 % (0-9) 12 % (0-9) Eosinophils (%) (Auto) 1 % (0-3) 2 % (0-3) Basophils (%) (Auto) 0 % (0-3) 1 % (0-3) Neutrophils # (Auto) 8.9 x10^3uL (1.8-7.7) 8.6 x10^3uL (1.8-7.7) Lymphocytes # (Auto) 1.3 x10^3/uL (1.0-4.8) 1.6 x10^3/uL (1.0-4.8) Monocytes # (Auto) 1.6 x10^3/uL (0.0-1.1) 1.4 x10^3/uL (0.0-1.1) Eosinophils # (Auto) 0.1 x10^3/uL (0.0-0.7) 0.3 x10^3/uL (0.0-0.7) Basophils # (Auto) 0.0 x10^3/uL (0.0-0.2) 0.1 x10^3/uL (0.0-0.2) Laboratory Tests Test 11/09/18 03:55 White Blood Count 11.9 x10^3/uL (4.0-11.0) Red Blood Count 4.19 x10^6/uL (4.30-5.70) Hemoglobin 12.8 g/dL (13.0-17.5) Hematocrit 38.8 % (39.0-53.0) Mean Corpuscular Volume 93 fL (79-100) Mean Corpuscular Hemoglobin 31 pg (25-35) Mean Corpuscular Hemoglobin Concent 33 g/dL (31-37) Red Cell Distribution Width 13.9 % (11.5-14.5) Platelet Count 252 x10^3/uL (140-400) Neutrophils (%) (Auto) 73 % (31-73) Lymphocytes (%) (Auto) 13 % (24-48) Monocytes (%) (Auto) 12 % (0-9) Eosinophils (%) (Auto) 2 % (0-3) Basophils (%) (Auto) 1 % (0-3) Neutrophils # (Auto) 8.6 x10^3uL (1.8-7.7) Lymphocytes # (Auto) 1.6 x10^3/uL (1.0-4.8) Monocytes # (Auto) 1.4 x10^3/uL (0.0-1.1) Eosinophils # (Auto) 0.3 x10^3/uL (0.0-0.7) Basophils # (Auto) 0.1 x10^3/uL (0.0-0.2) Sodium Level 140 mmol/L (136-145) Potassium Level 3.7 mmol/L (3.5-5.1) Chloride Level 102 mmol/L (98-107) Carbon Dioxide Level 27 mmol/L (21-32) Anion Gap 11 (6-14) Blood Urea Nitrogen 8 mg/dL (8-26) Creatinine 0.8 mg/dL (0.7-1.3) Estimated GFR (Cockcroft-Gault) 98.6 Glucose Level 123 mg/dL (70-99) Calcium Level 8.5 mg/dL (8.5-10.1) Problem List Problems Medical Problems: (1) Rib fractures Status: Acute Assessment/Plan supportive measures CAIT MARTINEZ MD 11/09/18 1415: SURGICAL PROGRESS NOTE Assessment/Plan Pt seen and examined. Agree with Ms. Jacinto's note Pt feels better, pain controlled, martin PO chest tube in place appreciate CTS and will defer management Will sign off, but please call for questions. OSIEL JACINTO APRN Nov 09, 2018 10:08 CAIT MARTINEZ MD Nov 09, 2018 14:15
--- NOTE | 2018-11-09 12:01 | PDOC ---
PROGRESS NOTES History of Present Illness History of Present Illness Assessment/Plan Assessment/Plan Assessment/Plan R PTX, rib fx, multiple Similar positioning of a right-sided thoracostomy tube. No residual pneumothorax is identified. There is similar degree of subcutaneous emphysema. 11/09 on cxr pneumomediastinum No esophageal leak was identified. 11/08 UGI barium swallow hydronephrosis hypotension, prob volume depleted There is [id number] left hydroureteronephrosis, no obstructive calculus, distal ureter in the pelvis difficult to visualize. Distal obstructing ureteral mass or stricture are considerations. 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 Known left hydro, with evaluation at [facility] 20years ago showing no obstruction. There is pneumomediastinum greater superiorly. There is trace right apical pneumothorax. There is prominent gas in the soft tissues of the right chest also extending posteriorly into the upper back as well as the inferior bilateral neck right greater than left. There is small dependent right pleural effusion, adjacent consolidation and atelectasis There is dilatation of the ascending thoracic aorta about 4.7 cm, no intraluminal flap seen [id number] left hydronephrosis and hydroureter, hydroureter to the level of the pelvis, more distal left ureter difficult to confidently visualize. PLAN PULM consult CTS consult urology consult reviewed Mag 3 with lasix scan to check left hydroureter, chronic. 11/09 ua renal sono eval hydronephrosis keep in icu DVT prophylaxis ECHO CHEST TUBE PER SURGERY 38 min cc time Vitals Vitals Vital Signs Date Time Temp Pulse Resp B/P (MAP) Pulse Ox O2 Delivery O2 Flow Rate FiO2 11/09/18 10:00 98.6 87 16 112/67 (82) 95 Nasal Cannula 1.0 98.6 Physical Exam General: Alert, Oriented X3, Cooperative, No acute distress, mild distress Heart: Regular rate, Normal S1 Lungs: Clear Abdomen: Soft, No tenderness Extremities: No clubbing, No cyanosis Skin: No rashes, No breakdown Labs LABS STATUS: ADM IN ORD. PHYSICIAN: LISSY LYON MD REASON: PTX PROCEDURE: PORTABLE CHEST 1V Chest radiograph 11/09/2018 9:00 AM INDICATION: Pneumothorax COMPARISON: November 08, 2018 TECHNIQUE: Portable upright frontal view of the chest is provided. FINDINGS: The cardiomediastinal silhouette is similar in appearance. Right-sided thoracostomy tube is in similar position. Right apical pneumothorax appears resolved. There is extensive subcutaneous emphysema along the right lateral chest wall and right neck base. No significant pleural effusions. There is a retrocardiac density which may represent atelectasis versus infiltrate. Upon a vascular congestion. There is prominence of bowel loops in the left upper abdomen. IMPRESSION: Similar positioning of a right-sided thoracostomy tube. No residual pneumothorax is identified. There is similar degree of subcutaneous emphysema. Electronically signed by: Vivi Acuna MD (11/09/2018 8:13 AM) [id number] Laboratory Tests Test 11/09/18 03:55 White Blood Count 11.9 x10^3/uL (4.0-11.0) Red Blood Count 4.19 x10^6/uL (4.30-5.70) Hemoglobin 12.8 g/dL (13.0-17.5) Hematocrit 38.8 % (39.0-53.0) Mean Corpuscular Volume 93 fL (79-100) Mean Corpuscular Hemoglobin 31 pg (25-35) Mean Corpuscular Hemoglobin Concent 33 g/dL (31-37) Red Cell Distribution Width 13.9 % (11.5-14.5) Platelet Count 252 x10^3/uL (140-400) Neutrophils (%) (Auto) 73 % (31-73) Lymphocytes (%) (Auto) 13 % (24-48) Monocytes (%) (Auto) 12 % (0-9) Eosinophils (%) (Auto) 2 % (0-3) Basophils (%) (Auto) 1 % (0-3) Neutrophils # (Auto) 8.6 x10^3uL (1.8-7.7) Lymphocytes # (Auto) 1.6 x10^3/uL (1.0-4.8) Monocytes # (Auto) 1.4 x10^3/uL (0.0-1.1) Eosinophils # (Auto) 0.3 x10^3/uL (0.0-0.7) Basophils # (Auto) 0.1 x10^3/uL (0.0-0.2) Sodium Level 140 mmol/L (136-145) Potassium Level 3.7 mmol/L (3.5-5.1) Chloride Level 102 mmol/L (98-107) Carbon Dioxide Level 27 mmol/L (21-32) Anion Gap 11 (6-14) Blood Urea Nitrogen 8 mg/dL (8-26) Creatinine 0.8 mg/dL (0.7-1.3) Estimated GFR (Cockcroft-Gault) 98.6 Glucose Level 123 mg/dL (70-99) Calcium Level 8.5 mg/dL (8.5-10.1) Assessment and Plan Assessmemt and Plan Problems Medical Problems: (1) Rib fractures Status: Acute Comment Review of Relevant I have reviewed the following items toyin (where applicable) has been applied. Labs Laboratory Tests Test 11/07/18 12:25 11/08/18 04:06 11/08/18 04:28 11/09/18 03:55 Urine Collection Type Unknown Urine Color Yellow Urine Clarity Clear Urine pH 6.5 Urine Specific [place] >=1.030 Urine Protein Negative mg/dL (NEG-TRACE) Urine Glucose (UA) Negative mg/dL (NEG) Urine Ketones (Stick) Negative mg/dL (NEG) Urine Blood Small (NEG) Urine Nitrite Negative (NEG) Urine Bilirubin Negative (NEG) Urine Urobilinogen Dipstick 0.2 mg/dL (0.2 mg/dL) Urine Leukocyte Esterase Negative (NEG) Urine RBC 3-5 /HPF (0-2) Urine WBC Occ /HPF (0-4) Urine Squamous Epithelial Cells Occ /LPF Urine Bacteria 0 /HPF (0-FEW) Urine Mucus Slight /LPF Sodium Level 141 mmol/L (136-145) 140 mmol/L (136-145) Potassium Level 3.7 mmol/L (3.5-5.1) 3.7 mmol/L (3.5-5.1) Chloride Level 104 mmol/L (98-107) 102 mmol/L (98-107) Carbon Dioxide Level 26 mmol/L (21-32) 27 mmol/L (21-32) Anion Gap 11 (6-14) 11 (6-14) Blood Urea Nitrogen 9 mg/dL (8-26) 8 mg/dL (8-26) Creatinine 0.7 mg/dL (0.7-1.3) 0.8 mg/dL (0.7-1.3) Estimated GFR (Cockcroft-Gault) 115.0 98.6 BUN/Creatinine Ratio 13 (6-20) Glucose Level 110 mg/dL (70-99) 123 mg/dL (70-99) Calcium Level 8.5 mg/dL (8.5-10.1) 8.5 mg/dL (8.5-10.1) Total Bilirubin 0.8 mg/dL (0.2-1.0) Aspartate Amino Transf (AST/SGOT) 24 U/L (15-37) Alanine Aminotransferase (ALT/SGPT) 39 U/L (16-63) Alkaline Phosphatase 40 U/L (46-116) Total Protein 6.3 g/dL (6.4-8.2) Albumin 3.1 g/dL (3.4-5.0) Albumin/Globulin Ratio 1.0 (1.0-1.7) White Blood Count 11.9 x10^3/uL (4.0-11.0) 11.9 x10^3/uL (4.0-11.0) Red Blood Count 4.17 x10^6/uL (4.30-5.70) 4.19 x10^6/uL (4.30-5.70) Hemoglobin 12.7 g/dL (13.0-17.5) 12.8 g/dL (13.0-17.5) Hematocrit 38.9 % (39.0-53.0) 38.8 % (39.0-53.0) Mean Corpuscular Volume 93 fL (79-100) 93 fL (79-100) Mean Corpuscular Hemoglobin 30 pg (25-35) 31 pg (25-35) Mean Corpuscular Hemoglobin Concent 33 g/dL (31-37) 33 g/dL (31-37) Red Cell Distribution Width 13.7 % (11.5-14.5) 13.9 % (11.5-14.5) Platelet Count 257 x10^3/uL (140-400) 252 x10^3/uL (140-400) Neutrophils (%) (Auto) 75 % (31-73) 73 % (31-73) Lymphocytes (%) (Auto) 11 % (24-48) 13 % (24-48) Monocytes (%) (Auto) 13 % (0-9) 12 % (0-9) Eosinophils (%) (Auto) 1 % (0-3) 2 % (0-3) Basophils (%) (Auto) 0 % (0-3) 1 % (0-3) Neutrophils # (Auto) 8.9 x10^3uL (1.8-7.7) 8.6 x10^3uL (1.8-7.7) Lymphocytes # (Auto) 1.3 x10^3/uL (1.0-4.8) 1.6 x10^3/uL (1.0-4.8) Monocytes # (Auto) 1.6 x10^3/uL (0.0-1.1) 1.4 x10^3/uL (0.0-1.1) Eosinophils # (Auto) 0.1 x10^3/uL (0.0-0.7) 0.3 x10^3/uL (0.0-0.7) Basophils # (Auto) 0.0 x10^3/uL (0.0-0.2) 0.1 x10^3/uL (0.0-0.2) Laboratory Tests Test 11/09/18 03:55 White Blood Count 11.9 x10^3/uL (4.0-11.0) Red Blood Count 4.19 x10^6/uL (4.30-5.70) Hemoglobin 12.8 g/dL (13.0-17.5) Hematocrit 38.8 % (39.0-53.0) Mean Corpuscular Volume 93 fL (79-100) Mean Corpuscular Hemoglobin 31 pg (25-35) Mean Corpuscular Hemoglobin Concent 33 g/dL (31-37) Red Cell Distribution Width 13.9 % (11.5-14.5) Platelet Count 252 x10^3/uL (140-400) Neutrophils (%) (Auto) 73 % (31-73) Lymphocytes (%) (Auto) 13 % (24-48) Monocytes (%) (Auto) 12 % (0-9) Eosinophils (%) (Auto) 2 % (0-3) Basophils (%) (Auto) 1 % (0-3) Neutrophils # (Auto) 8.6 x10^3uL (1.8-7.7) Lymphocytes # (Auto) 1.6 x10^3/uL (1.0-4.8) Monocytes # (Auto) 1.4 x10^3/uL (0.0-1.1) Eosinophils # (Auto) 0.3 x10^3/uL (0.0-0.7) Basophils # (Auto) 0.1 x10^3/uL (0.0-0.2) Sodium Level 140 mmol/L (136-145) Potassium Level 3.7 mmol/L (3.5-5.1) Chloride Level 102 mmol/L (98-107) Carbon Dioxide Level 27 mmol/L (21-32) Anion Gap 11 (6-14) Blood Urea Nitrogen 8 mg/dL (8-26) Creatinine 0.8 mg/dL (0.7-1.3) Estimated GFR (Cockcroft-Gault) 98.6 Glucose Level 123 mg/dL (70-99) Calcium Level 8.5 mg/dL (8.5-10.1) Medications Current Medications Sodium Chloride 500 ml @ 500 mls/hr 1X ONCE IV Last administered on at 20:02; Start 11/06/18 at 19:45; Stop 11/06/18 at 20:44; Status DC Fentanyl Citrate (Fentanyl 2ml Vial) 50 mcg 1X ONCE IV Last administered on at 20:32; Start 11/06/18 at 19:45; Stop 11/06/18 at 19:46; Status DC Ketamine HCl (Ketamine) 50 mg 1X ONCE IV Last administered on 11/06/18at 20:15 ; Start 11/06/18 at 20:00; Stop 11/06/18 at 20:01; Status DC Lidocaine HCl 20 ml STK-MED ONCE .ROUTE ; Start 11/06/18 at 20:18; Stop at 20:19; Status DC Sodium Chloride 1,000 ml @ 1,000 mls/hr 1X ONCE IV Last administered on at 20:14; Start 11/06/18 at 21:00; Stop 11/06/18 at 21:59; Status DC Lidocaine HCl 40 ml 1X ONCE IJ Last administered on 11/06/18at 20:16; Start at 21:15; Stop 11/06/18 at 21:16; Status DC Ondansetron HCl (Zofran) 4 mg PRN Q8HRS PRN IV NAUSEA/VOMITING; Start 11/06/18 at 22:15; Stop 11/07/18 at 11:54; Status DC Morphine Sulfate (Morphine Sulfate) 4 mg PRN Q2HR PRN IV PAIN Last administered on 11/07/18 07:47; Start 11/06/18 at 22:15; Stop 11/07/18 at 12:05 ; Status DC Sodium Chloride 1,000 ml @ 75 mls/hr [id number] IV Last administered on at 12:08; Start 11/06/18 at 22:15; Stop 11/07/18 at 22:14; Status DC Iohexol (Omnipaque 240 Mg/ml) 30 ml 1X ONCE PO Last administered on 11/07/18at 10:30; Start 11/07/18 at 09:00; Stop 11/07/18 at 09:01; Status DC Iohexol (Omnipaque 300 Mg/ml) 75 ml 1X ONCE IV Last administered on 11/07/18at 10:30; Start 11/07/18 at 09:00; Stop 11/07/18 at 09:01; Status DC Docusate Sodium (Colace) 100 mg DAILY PO Last administered on 11/09/18 08:23; Start 11/07/18 at 13:00 Ondansetron HCl (Zofran) 4 mg PRN Q6HRS PRN IV NAUSEA/VOMITING; Start 11/07/18 at 12:00 Acetaminophen/ Hydrocodone Bitart (Lortab 7.5/325) 1 tab PRN Q6HRS PRN PO PAIN Last administered on 11/09/18 04:57; Start 11/07/18 at 12:00 Polyethylene Glycol (miraLAX PACKET) 17 gm DAILY PO ; Start 11/07/18 at 13:00; Stop 11/08/18 at 18:12; Status DC Enoxaparin Sodium (Lovenox 40mg Syringe) 40 mg Q24H SQ Last administered on at 14:05; Start 11/07/18 at 13:00 Pantoprazole Sodium (Protonix) 40 mg DAILYAC PO Last administered on 11/09/18 08:23; Start 11/07/18 at 13:00 Fentanyl Citrate (Fentanyl 2ml Vial) 25 mcg PRN Q2HR PRN IV PAIN Last administered on 11/08/18at 16:07; Start 11/07/18 at 12:00 Albuterol/ Ipratropium (Duoneb) 3 ml RTQID NEB Last administered on 11/09/18at 09:40; Start 11/07/18 at 13:00 Iohexol (Omnipaque 300 Mg/ml) 400 ml 1X ONCE PO Last administered on at 13:00; Start 11/07/18 at 13:00; Stop 11/07/18 at 13:01; Status DC Polyethylene Glycol (miraLAX PACKET) 17 gm PRN DAILY PRN PO CONSTIPATION; Start 11/08/18 at 18:15 Vitals/I & O Vital Sign - Last 24 Hours 11/08/18 11/08/18 11/08/18 11/08/18 13:00 14:00 15:00 16:00 Temp 99.1 99.1 Pulse 85 84 81 88 Resp 22 23 19 21 B/P (MAP) 103/65 (78) 104/65 (78) 113/67 (82) 140/77 (98) Pulse Ox 95 93 96 96 O2 Delivery Nasal Cannula Nasal Cannula Nasal Cannula Nasal Cannula O2 Flow Rate 2.0 2.0 2.0 2.0 11/08/18 11/08/18 11/08/18 11/08/18 16:00 16:07 16:24 16:49 Pulse Ox 96 O2 Delivery Nasal Cannula Nasal Cannula Nasal Cannula Nasal Cannula O2 Flow Rate 2.0 2.0 1.0 2.0 11/08/18 11/08/18 11/08/18 11/08/18 17:00 17:19 18:00 18:14 Pulse 87 Resp 22 B/P (MAP) 100/64 (76) Pulse Ox 94 O2 Delivery Nasal Cannula Nasal Cannula Nasal Cannula Nasal Cannula O2 Flow Rate 2.0 2.0 2.0 2.0 11/08/18 11/08/18 11/08/18 11/08/18 19:00 19:05 20:00 20:23 Temp 98.2 98.2 Pulse 84 80 Resp 20 16 B/P (MAP) 100/54 (69) 99/54 (69) Pulse Ox 96 96 96 O2 Delivery Nasal Cannula Nasal Cannula Nasal Cannula Nasal Cannula O2 Flow Rate 2.0 2.0 2.0 1.0 11/08/18 11/08/18 11/08/18 11/08/18 21:00 22:00 22:49 23:00 Temp 98.1 98.1 Pulse 84 84 94 Resp 17 17 18 27 B/P (MAP) 94/58 (70) 104/63 (77) 107/66 (80) Pulse Ox 96 96 93 O2 Delivery Nasal Cannula Nasal Cannula Nasal Cannula Nasal Cannula O2 Flow Rate 2.0 2.0 2.0 2.0 11/08/18 11/09/18 11/09/18 11/09/18 23:31 00:00 01:00 02:00 Pulse 86 84 82 Resp 19 18 B/P (MAP) 111/64 (80) 109/64 (79) 110/59 (76) Pulse Ox 95 95 95 O2 Delivery Nasal Cannula Nasal Cannula Nasal Cannula Nasal Cannula O2 Flow Rate 2.0 2.0 2.0 2.0 11/09/18 11/09/18 11/09/18 11/09/18 03:00 04:00 04:08 05:00 Temp 98.6 98.6 Pulse 80 80 81 Resp 22 22 20 B/P (MAP) 113/64 (80) 107/64 (78) 119/67 (84) Pulse Ox 96 95 95 O2 Delivery Nasal Cannula Nasal Cannula Nasal Cannula Nasal Cannula O2 Flow Rate 2.0 2.0 2.0 2.0 11/09/18 11/09/18 11/09/18 11/09/18 06:15 07:00 08:00 08:00 Temp 98.6 98.6 Pulse 74 76 76 Resp 30 30 30 B/P (MAP) 100/66 (77) 93/63 (73) 102/67 (79) Pulse Ox 93 97 98 O2 Delivery Nasal Cannula Nasal Cannula Nasal Cannula Nasal Cannula O2 Flow Rate 2.0 2.0 1.0 1.0 11/09/18 11/09/18 11/09/18 09:00 09:40 10:00 Temp 98.6 98.6 Pulse 84 87 Resp 30 16 B/P (MAP) 97/64 (75) 112/67 (82) Pulse Ox 95 95 95 O2 Delivery Nasal Cannula Nasal Cannula Nasal Cannula O2 Flow Rate 1.0 1.0 1.0 Intake and Output 11/08/18 11/08/18 11/09/18 15:00 23:00 07:00 Intake Total 450 ml 500 ml Output Total 600 ml 450 ml 328 ml Balance -150 ml -450 ml 172 ml MARYAN MESSINA MD Nov 09, 2018 12:00
[2018-11-09] MEDS: ENOXAPARIN 40 MG/0.4 ML SYRINGE. SQ SCH (12:16)
[2018-11-09] MEDS ORDERED: IV NORMAL SALINE 1000ML BAG 1,000 ML IV ONE (13:00)
--- NOTE | 2018-11-09 13:00 | PDOC2 ---
CONSULT Date of Consult Date of Consult DATE: 11/09/18 TIME: 12:45 Reason for Consult Reason for Consult: Blunt thoracic trauma with right-sided rib fractures Referring Physician Referring Physician: Dr Caldwell Identification/Chief Complaint Chief Complaint Fall Source Source: Chart review, Patient History of Present Illness Reason for Visit: 58 y old male, admitted following blunt thoracic trauma. He fell from a ladder, sustaining right 5-7th rib fxs and a posterior 8th rib fx. The sixth rib fracture is comminuted and the rest of the rib fractures have significant displacement with overlapping of the fracture segments. Pneumomediastinum was also noted on CT chest. An esophagram was performed which did not demonstrate an esophageal perforation. The pneumomediastinum was most likely a result of air dissection from the lung injury. There is also s/q emphysema. Right tube thoracostomy was inserted for associated PTX. There is no air leak and the right lung is fully expanded. Currently he denies any significant pain and reports that he is relatively comfortable. He has no other injuries from his fall. Past Medical History Cardiovascular: No pertinent hx Past Surgical History Past Surgical History: Other (ureter reimplantation ) Family History Family History: No Significant Social History <1 pack per day (cigars) ALCOHOL: occassional Drugs: None Current Problem List Problem List Problems Medical Problems: (1) Rib fractures Status: Acute Current Medications Current Medications Current Medications Sodium Chloride 500 ml @ 500 mls/hr 1X ONCE IV Last administered on at 20:02; Start 11/06/18 at 19:45; Stop 11/06/18 at 20:44; Status DC Fentanyl Citrate (Fentanyl 2ml Vial) 50 mcg 1X ONCE IV Last administered on at 20:32; Start 11/06/18 at 19:45; Stop 11/06/18 at 19:46; Status DC Ketamine HCl (Ketamine) 50 mg 1X ONCE IV Last administered on 11/06/18at 20:15 ; Start 11/06/18 at 20:00; Stop 11/06/18 at 20:01; Status DC Lidocaine HCl 20 ml STK-MED ONCE .ROUTE ; Start 11/06/18 at 20:18; Stop at 20:19; Status DC Sodium Chloride 1,000 ml @ 1,000 mls/hr 1X ONCE IV Last administered on at 20:14; Start 11/06/18 at 21:00; Stop 11/06/18 at 21:59; Status DC Lidocaine HCl 40 ml 1X ONCE IJ Last administered on 11/06/18at 20:16; Start at 21:15; Stop 11/06/18 at 21:16; Status DC Ondansetron HCl (Zofran) 4 mg PRN Q8HRS PRN IV NAUSEA/VOMITING; Start 11/06/18 at 22:15; Stop 11/07/18 at 11:54; Status DC Morphine Sulfate (Morphine Sulfate) 4 mg PRN Q2HR PRN IV PAIN Last administered on 11/07/18at 07:47; Start 11/06/18 at 22:15; Stop 11/07/18 at 12:05 ; Status DC Sodium Chloride 1,000 ml @ 75 mls/hr [id number] IV Last administered on at 12:08; Start 11/06/18 at 22:15; Stop 11/07/18 at 22:14; Status DC Iohexol (Omnipaque 240 Mg/ml) 30 ml 1X ONCE PO Last administered on 11/07/18at 10:30; Start 11/07/18 at 09:00; Stop 11/07/18 at 09:01; Status DC Iohexol (Omnipaque 300 Mg/ml) 75 ml 1X ONCE IV Last administered on 11/07/18at 10:30; Start 11/07/18 at 09:00; Stop 11/07/18 at 09:01; Status DC Docusate Sodium (Colace) 100 mg DAILY PO Last administered on 11/09/18at 08:23; Start 11/07/18 at 13:00 Ondansetron HCl (Zofran) 4 mg PRN Q6HRS PRN IV NAUSEA/VOMITING; Start 11/07/18 at 12:00 Acetaminophen/ Hydrocodone Bitart (Lortab 7.5/325) 1 tab PRN Q6HRS PRN PO PAIN Last administered on 11/09/18at 12:15; Start 11/07/18 at 12:00 Polyethylene Glycol (miraLAX PACKET) 17 gm DAILY PO ; Start 11/07/18 at 13:00; Stop 11/08/18 at 18:12; Status DC Enoxaparin Sodium (Lovenox 40mg Syringe) 40 mg Q24H SQ Last administered on 12:16; Start 11/07/18 at 13:00 Pantoprazole Sodium (Protonix) 40 mg DAILYAC PO Last administered on 11/09/18 08:23; Start 11/07/18 at 13:00 Fentanyl Citrate (Fentanyl 2ml Vial) 25 mcg PRN Q2HR PRN IV PAIN Last administered on 11/08/18 16:07; Start 11/07/18 at 12:00 Albuterol/ Ipratropium (Duoneb) 3 ml RTQID NEB Last administered on 11/09/18 09:40; Start 11/07/18 at 13:00 Iohexol (Omnipaque 300 Mg/ml) 400 ml 1X ONCE PO Last administered on 13:00; Start 11/07/18 at 13:00; Stop 11/07/18 at 13:01; Status DC Polyethylene Glycol (miraLAX PACKET) 17 gm PRN DAILY PRN PO CONSTIPATION; Start 11/08/18 at 18:15 Allergies Allergies: Coded Allergies: No Known Drug Allergies (Unverified , 11/06/18) ROS General: No: Chills, Night Sweats, Fatigue, Malaise, Appetite PSYCHOLOGICAL ROS: No: Anxiety, Behavioral Disorder, Concentration difficultie , Decreased libido, Depression, Disorientation, Hallucinations, Hostility, Irritablity, Memory difficulties, Mood Swings, Obsessive thoughts, Physical abuse, Sexual abuse, Sleep disturbances, Suicidal ideation Eyes: No Blurry vision, No Decreased vision, No Double vision, No Dry eyes, No Excessive tearing, No Eye Pain, No Itchy Eyes, No Loss of vision, No Photophobia , No Scotomata, No Uses contacts, No Uses glasses HEENT: No: Heacaches, Visual Changes, Hearing change, Nasal congestion, Nasal discharge, Oral lesions, Sinus pain, Sore Throat, Epistaxis, Sneezing, Snoring, Tinnitus, Vertigo, Vocal changes, Other ALLERGY AND IMMUNOLOGY: No: Hives, Insect Bite Sensitivity, Itchy/Watery Eyes, Nasal Congestion, Post Nasal Drip, Seasonal Allergies Hematological and Lymphatic: No: Bleeding Problems, Blood Clots, Blood Transfusions, Brusing, Night Sweats, Pallor, Swollen Lymph Nodes ENDOCRINE: No: Breast Changes, Galactorrhea, Hair Pattern Changes, Hot Flashes , Malaise/lethargy, Mood Swings, Palpitations, Polydipsia/polyuria, Skin Changes , Temperature Intolerance, Unexpected Weight Changes Respiratory: YES: Pleuritic Pain; No: Cough, Hemoptysis, Orthopnea, Shortness of breath, SOB with excertion, Sputum Changes, Stridor, Tachypnea, Wheezing Cardiovascular: No Chest Pain, No Palpitations, No Orthopnea, No Paroxysmal Noc. Dyspnea, No Edema, No Lt Headedness Gastrointestinal: No Nausea, No Vomiting, No Abdominal Pain, No Diarrhea, No Constipation, No Melena, No Hematochezia Genitourinary: No Dysuria, No Frequency, No Incontinence, No Hematuria, No Retention, No Discharge, No Urgency, No Pain, No Flank Pain Musculoskeletal: No Gait Disturbance, No Joint Pain, No Joint Stiffness, No Joint Swelling, No Muscle Pain, No Muscular Weakness, No Pain In:, No Swelling In: Neurological: No Behavorial Changes, No Bowel/Bladder ControlChng, No Confusion , No Dizziness, No Gait Disturbance, No Headaches, No Impaired Coord/balance, No Memory Loss, No Numbness/Tingling, No Seizures, No Speech Problems, No Tremors, No Visual Changes, No Weakness Skin: No Dry Skin, No Eczema, No Hair Changes, No Lumps, No Mole Changes, No Mottling, No Nail Changes, No Pruritus, No Rash, No Skin Lesion Changes, No Acne Physical Exam General: Alert, Oriented X3, No acute distress HEENT: Atraumatic, PERRLA Lungs: Clear to auscultation Heart: Regular rate, Normal S1, Normal S2 Abdomen: Soft, No tenderness Extremities: Normal pulses Skin: No significant lesion Neuro: Normal gait, Normal speech, Strength at 5/5 X4 ext, Normal tone, Sensation intact, Cranial nerves 3-12 NL, Reflexes 2+ Psych/Mental Status: Mental status NL MUSCULOSKELETAL: No deformity Vitals VITALS Vital Signs Date Time Temp Pulse Resp B/P (MAP) Pulse Ox O2 Delivery O2 Flow Rate FiO2 11/09/18 12:15 95 Nasal Cannula 1.0 11/09/18 10:00 98.6 87 16 112/67 (82) 98.6 Labs Labs Laboratory Tests Test 11/08/18 04:06 11/08/18 04:28 11/09/18 03:55 Sodium Level 141 mmol/L (136-145) 140 mmol/L (136-145) Potassium Level 3.7 mmol/L (3.5-5.1) 3.7 mmol/L (3.5-5.1) Chloride Level 104 mmol/L (98-107) 102 mmol/L (98-107) Carbon Dioxide Level 26 mmol/L (21-32) 27 mmol/L (21-32) Anion Gap 11 (6-14) 11 (6-14) Blood Urea Nitrogen 9 mg/dL (8-26) 8 mg/dL (8-26) Creatinine 0.7 mg/dL (0.7-1.3) 0.8 mg/dL (0.7-1.3) Estimated GFR (Cockcroft-Gault) 115.0 98.6 BUN/Creatinine Ratio 13 (6-20) Glucose Level 110 mg/dL (70-99) 123 mg/dL (70-99) Calcium Level 8.5 mg/dL (8.5-10.1) 8.5 mg/dL (8.5-10.1) Total Bilirubin 0.8 mg/dL (0.2-1.0) Aspartate Amino Transf (AST/SGOT) 24 U/L (15-37) Alanine Aminotransferase (ALT/SGPT) 39 U/L (16-63) Alkaline Phosphatase 40 U/L (46-116) Total Protein 6.3 g/dL (6.4-8.2) Albumin 3.1 g/dL (3.4-5.0) Albumin/Globulin Ratio 1.0 (1.0-1.7) White Blood Count 11.9 x10^3/uL (4.0-11.0) 11.9 x10^3/uL (4.0-11.0) Red Blood Count 4.17 x10^6/uL (4.30-5.70) 4.19 x10^6/uL (4.30-5.70) Hemoglobin 12.7 g/dL (13.0-17.5) 12.8 g/dL (13.0-17.5) Hematocrit 38.9 % (39.0-53.0) 38.8 % (39.0-53.0) Mean Corpuscular Volume 93 fL (79-100) 93 fL (79-100) Mean Corpuscular Hemoglobin 30 pg (25-35) 31 pg (25-35) Mean Corpuscular Hemoglobin Concent 33 g/dL (31-37) 33 g/dL (31-37) Red Cell Distribution Width 13.7 % (11.5-14.5) 13.9 % (11.5-14.5) Platelet Count 257 x10^3/uL (140-400) 252 x10^3/uL (140-400) Neutrophils (%) (Auto) 75 % (31-73) 73 % (31-73) Lymphocytes (%) (Auto) 11 % (24-48) 13 % (24-48) Monocytes (%) (Auto) 13 % (0-9) 12 % (0-9) Eosinophils (%) (Auto) 1 % (0-3) 2 % (0-3) Basophils (%) (Auto) 0 % (0-3) 1 % (0-3) Neutrophils # (Auto) 8.9 x10^3uL (1.8-7.7) 8.6 x10^3uL (1.8-7.7) Lymphocytes # (Auto) 1.3 x10^3/uL (1.0-4.8) 1.6 x10^3/uL (1.0-4.8) Monocytes # (Auto) 1.6 x10^3/uL (0.0-1.1) 1.4 x10^3/uL (0.0-1.1) Eosinophils # (Auto) 0.1 x10^3/uL (0.0-0.7) 0.3 x10^3/uL (0.0-0.7) Basophils # (Auto) 0.0 x10^3/uL (0.0-0.2) 0.1 x10^3/uL (0.0-0.2) Laboratory Tests Test 11/09/18 03:55 White Blood Count 11.9 x10^3/uL (4.0-11.0) Red Blood Count 4.19 x10^6/uL (4.30-5.70) Hemoglobin 12.8 g/dL (13.0-17.5) Hematocrit 38.8 % (39.0-53.0) Mean Corpuscular Volume 93 fL (79-100) Mean Corpuscular Hemoglobin 31 pg (25-35) Mean Corpuscular Hemoglobin Concent 33 g/dL (31-37) Red Cell Distribution Width 13.9 % (11.5-14.5) Platelet Count 252 x10^3/uL (140-400) Neutrophils (%) (Auto) 73 % (31-73) Lymphocytes (%) (Auto) 13 % (24-48) Monocytes (%) (Auto) 12 % (0-9) Eosinophils (%) (Auto) 2 % (0-3) Basophils (%) (Auto) 1 % (0-3) Neutrophils # (Auto) 8.6 x10^3uL (1.8-7.7) Lymphocytes # (Auto) 1.6 x10^3/uL (1.0-4.8) Monocytes # (Auto) 1.4 x10^3/uL (0.0-1.1) Eosinophils # (Auto) 0.3 x10^3/uL (0.0-0.7) Basophils # (Auto) 0.1 x10^3/uL (0.0-0.2) Sodium Level 140 mmol/L (136-145) Potassium Level 3.7 mmol/L (3.5-5.1) Chloride Level 102 mmol/L (98-107) Carbon Dioxide Level 27 mmol/L (21-32) Anion Gap 11 (6-14) Blood Urea Nitrogen 8 mg/dL (8-26) Creatinine 0.8 mg/dL (0.7-1.3) Estimated GFR (Cockcroft-Gault) 98.6 Glucose Level 123 mg/dL (70-99) Calcium Level 8.5 mg/dL (8.5-10.1) Images Images CT chest 1. There are right fifth through eighth rib fractures with displacement and overriding of fracture fragments of the sixth and seventh ribs as described, also nondisplaced separate fractures of right posterior sixth and seventh ribs. There is prominent gas in the soft tissues of the right chest also extending into the neck. There is superior pneumomediastinum. There is trace right pneumothorax, right chest tube present. There is small right pleural effusion, also some atelectasis lower lobes bilaterally greater on the right. There is also lung parenchymal abnormality near the displaced rib fractures likely component of contusion/laceration. 2. There is dilatation ascending thoracic aorta about 4.7 cm. Abdomen pelvis: 1. There is [id number] left hydroureteronephrosis, no obstructive calculus, distal ureter in the pelvis difficult to visualize. Distal obstructing ureteral mass or stricture are considerations. There is distention of urinary bladder. 2. There is likely chronic bilateral L3 spondylolysis, no significant spondylolisthesis. Assessment/Plan Assessment/Plan 58 y old male, admitted following blunt thoracic trauma. He fell from a ladder, sustaining right 5-7th rib fxs and a posterior 8th rib fx. The sixth rib fracture is comminuted and the rest of the rib fractures have significant displacement with overlapping of the fracture segments. Pneumomediastinum was also noted on CT chest. An esophagram was performed which did not demonstrate an esophageal perforation. The pneumomediastinum was most likely a result of air dissection from the lung injury. There is also s/q emphysema. Right tube thoracostomy was inserted for associated PTX. There is no air leak and the right lung is fully expanded. I had a long discussion with the patient and his who was present in the room. 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 Although this is not a life-threatening condition, it can lead to chronic pain syndrome, which for some patients can be debilitating. The patient told me that he has a high pain tolerance and is already feeling better. He currently denies any limiting right-sided chest wall pain. He is not interested in undergoing rib plating at this time. I told him that should he develop significant chest wall pain in the future, he can always return for an open reduction internal fixation of his malunion ribs. He also needs follow-up for his ascending aortic aneurysm which I measured at 4.5-4.6 cm max. He should return to clinic and see me in [address] chest angiogram beforehand, to exclude rapid aneurysmal growth. If the aneurysm is stable at that time, we can increase the follow-up interval to annual. Okay for chest tube to be removed, which currently is not doing anything. JAGDEEP GREENE MD Nov 09, 2018 12:59
--- NOTE | 2018-11-09 13:09 | PDOC ---
CARDIO Progress Notes Date and Time Date of Service 11/09/18 Time of Evaluation 1305 Subjective Subjective: No Chest Pain, No Palpitations, No Dizziness, Other (c/o rib pain) Vitals Vitals Vital Signs Date Time Temp Pulse Resp B/P (MAP) Pulse Ox O2 Delivery O2 Flow Rate FiO2 11/09/18 12:15 95 Nasal Cannula 1.0 11/09/18 12:00 108 30 97/61 (73) 11/09/18 10:00 98.6 98.6 Weight Weight [ ] Input and Output Intake and Output Intake and Output 11/09/18 07:00 Intake Total 950 ml Output Total 1378 ml Balance -428 ml Intake Oral 950 ml Output Urine Total 1375 ml Chest Tube Drainage Total 3 ml Laboratory Labs Laboratory Tests Test 11/09/18 03:55 White Blood Count 11.9 x10^3/uL (4.0-11.0) Red Blood Count 4.19 x10^6/uL (4.30-5.70) Hemoglobin 12.8 g/dL (13.0-17.5) Hematocrit 38.8 % (39.0-53.0) Mean Corpuscular Volume 93 fL (79-100) Mean Corpuscular Hemoglobin 31 pg (25-35) Mean Corpuscular Hemoglobin Concent 33 g/dL (31-37) Red Cell Distribution Width 13.9 % (11.5-14.5) Platelet Count 252 x10^3/uL (140-400) Neutrophils (%) (Auto) 73 % (31-73) Lymphocytes (%) (Auto) 13 % (24-48) Monocytes (%) (Auto) 12 % (0-9) Eosinophils (%) (Auto) 2 % (0-3) Basophils (%) (Auto) 1 % (0-3) Neutrophils # (Auto) 8.6 x10^3uL (1.8-7.7) Lymphocytes # (Auto) 1.6 x10^3/uL (1.0-4.8) Monocytes # (Auto) 1.4 x10^3/uL (0.0-1.1) Eosinophils # (Auto) 0.3 x10^3/uL (0.0-0.7) Basophils # (Auto) 0.1 x10^3/uL (0.0-0.2) Sodium Level 140 mmol/L (136-145) Potassium Level 3.7 mmol/L (3.5-5.1) Chloride Level 102 mmol/L (98-107) Carbon Dioxide Level 27 mmol/L (21-32) Anion Gap 11 (6-14) Blood Urea Nitrogen 8 mg/dL (8-26) Creatinine 0.8 mg/dL (0.7-1.3) Estimated GFR (Cockcroft-Gault) 98.6 Glucose Level 123 mg/dL (70-99) Calcium Level 8.5 mg/dL (8.5-10.1) Physical Exam HEENT: Neck Supple W Full Motion Chest: Symmetric LUNGS: Other (left CT) Heart: RRR Abdomen: Soft N/T Extremities: No Edema, No Calf Tenderness Neurology: alert, oriented, follow commands Assessment Assessment 1. Traumatic fall with multiple right rib fracture and subsequent pneumothorax. s/p CT placement. Echo showed preserved LV systolic function without pericardial effusion. Continue as per CTS/pulm 2. Ascending aortic aneurysm; 4.5-4.6 cm. 3. Multiple right ribs fracture. Pain management as per PCP Recommendations Supportive care from CV standpoint Routine outpatient monitoring of AAA with chest CTA in 6 months. SAHARA LEES APRN Nov 09, 2018 13:09
[2018-11-09] MEDS: IV NORMAL SALINE 1000ML BAG 1,000 ML IV SCH ×2 (14:00→14:03)
--- NOTE | 2018-11-09 15:12 | NUR ---
SS following for discharge planning. SS reviewed pt chart. Pt is from home with spouse and is currently requiring oxygen. No discharge needs noted at this time. SS will continue to follow for pending discharge needs.
--- NOTE | 2018-11-09 15:26 | RAD ---
Portable chest, 11/09/2018, 3:03 PM: HISTORY: Chest tube, pneumothorax Comparison is made to the study of earlier the same day. A right chest tube remains in place with its tip projected over the upper right chest laterally. This chest tube has been partially withdrawn since the exam of 11/06/2018. No significant pneumothorax is currently seen. Again noted are marked multiple displaced right lateral rib fractures with mild underlying pleural thickening. The heart is within normal limits in size. There is mild ongoing retrocardiac atelectasis/infiltrate medially in the left base. No left-sided pneumothorax or significant pleural fluid is seen. Moderate chest wall emphysema persists on the right extending into the right flank region and right lower neck. IMPRESSION: No significant change since earlier in the day. Electronically signed by: Rodrick Dave MD (11/09/2018 3:23 PM) [facility]
--- NOTE | 2018-11-09 18:10 | NUR ---
PT ARRIVED FROM ICU AT 1726, PT STABLE AND ALERT UPON ARRIVAL, ASSESSMENT PERFORMED AGREE WITH PREVIOUS NURSE'S ASSESSMENT.
--- NOTE | 2018-11-09 18:36 | NUR ---
Chest tube to remained clamped until am. CXR in am.
[2018-11-09] MEDS ORDERED: ACETAMINOPHEN 325 MG TABLET. PO PRN (23:30)
[2018-11-10] MEDS: HYDROcodone/APAP 7.5/325MG 1 TAB TABLET PO PRN ×3 (01:05→15:38)
[2018-11-10 04:43] VITALS: BP 105/63
[2018-11-10 07:00] VITALS: BP 113/61
[2018-11-10] MEDS: IV NORMAL SALINE 1000ML BAG 1,000 ML IV SCH (07:16)
[2018-11-10] MEDS: IPRATRPIUM/ALBUTEROL 0.5/2.5MG 3 ML NEBU. NEB SCH ×3 (07:43→15:59)
--- NOTE | 2018-11-10 08:12 | RAD ---
Chest radiograph 11/10/2018 9:00 AM INDICATION: Pneumothorax COMPARISON: November 09, 2018 TECHNIQUE: Portable upright frontal view of the chest is provided. FINDINGS: The cardiomediastinal silhouette is within normal limits. There may be interval retraction of the right-sided thoracostomy tube. There is persistent subcutaneous emphysema in the right neck base and right lateral chest wall. No definite pneumothorax. Mild pleural thickening in the right lower lobe. Left lung is clear. No pulmonary vascular congestion. IMPRESSION: There is suggestion of interval retraction of a right-sided thoracostomy tube. No definite pneumothorax. Electronically signed by: Vivi Acuna MD (11/10/2018 8:09 AM) [id number]
[2018-11-10] MEDS: PANTOPRAZOLE 40 MG TABLET.DR. PO SCH (08:15)
[2018-11-10] MEDS: DOCUSATE SODIUM 100 MG CAPSULE. PO SCH (08:16)
--- NOTE | 2018-11-10 09:19 | PDOC ---
PULMONARY PROGRESS NOTES Subjective NOT MORE SOA CHEST TUBE CLAMP SINCE YESTERDAY Vitals Vital Signs Date Time Temp Pulse Resp B/P (MAP) Pulse Ox O2 Delivery O2 Flow Rate FiO2 11/10/18 08:16 20 95 Room Air 11/10/18 07:45 2.0 11/10/18 07:00 97.9 75 113/61 (78) 97.9 ROS: No Nausea, No Abdominal Pain, No Increase Cough General: Alert, No acute distress Lungs: Clear Cardiovascular: S1 Abdomen: Soft Neuro Exam: Alert Extremities: No Edema Skin: Warm Labs Laboratory Tests Test 11/09/18 03:55 White Blood Count 11.9 x10^3/uL (4.0-11.0) Red Blood Count 4.19 x10^6/uL (4.30-5.70) Hemoglobin 12.8 g/dL (13.0-17.5) Hematocrit 38.8 % (39.0-53.0) Mean Corpuscular Volume 93 fL (79-100) Mean Corpuscular Hemoglobin 31 pg (25-35) Mean Corpuscular Hemoglobin Concent 33 g/dL (31-37) Red Cell Distribution Width 13.9 % (11.5-14.5) Platelet Count 252 x10^3/uL (140-400) Neutrophils (%) (Auto) 73 % (31-73) Lymphocytes (%) (Auto) 13 % (24-48) Monocytes (%) (Auto) 12 % (0-9) Eosinophils (%) (Auto) 2 % (0-3) Basophils (%) (Auto) 1 % (0-3) Neutrophils # (Auto) 8.6 x10^3uL (1.8-7.7) Lymphocytes # (Auto) 1.6 x10^3/uL (1.0-4.8) Monocytes # (Auto) 1.4 x10^3/uL (0.0-1.1) Eosinophils # (Auto) 0.3 x10^3/uL (0.0-0.7) Basophils # (Auto) 0.1 x10^3/uL (0.0-0.2) Sodium Level 140 mmol/L (136-145) Potassium Level 3.7 mmol/L (3.5-5.1) Chloride Level 102 mmol/L (98-107) Carbon Dioxide Level 27 mmol/L (21-32) Anion Gap 11 (6-14) Blood Urea Nitrogen 8 mg/dL (8-26) Creatinine 0.8 mg/dL (0.7-1.3) Estimated GFR (Cockcroft-Gault) 98.6 Glucose Level 123 mg/dL (70-99) Calcium Level 8.5 mg/dL (8.5-10.1) Comments CXR NO ptx, right sc air Impression . 1. Status post mechanical fall resulting in right apical pneumothorax and pneumomediastinum along with right 5th through 8th rib fractures with displacement, status post right chest tube. 2. Small tiny right lower lobe effusion, likely tiny hemothorax. There is also parenchymal abnormality, likely lung contusion. 3. Minimal history of cigar use. 4. [id number] left hydroureteronephrosis with no obstructive calculi. Plan . TUBE CLAMP SINCE YESTERDAY CXR NO PTX WILL D/C TUBE D/C HOME FOLLOW UP WITH ME NEXT FRIDAY AT 1600 CXR PRIOR TO VISIT [facility] FOR PAIN ALESSANDRA HURTADO MD Nov 10, 2018 09:19
--- NOTE | 2018-11-10 10:55 | PDOC ---
PROGRESS NOTES History of Present Illness History of Present Illness Assessment/Plan Assessment/Plan Assessment/Plan R PTX, rib fx, multiple Similar positioning of a right-sided thoracostomy tube. No residual pneumothorax is identified. There is similar degree of subcutaneous emphysema. 11/09 on cxr pneumomediastinum No esophageal leak was identified. 11/08 UGI barium swallow hydronephrosis hypotension, prob volume depleted There is [id number] left hydroureteronephrosis, no obstructive calculus, distal ureter in the pelvis difficult to visualize. Distal obstructing ureteral mass or stricture are considerations. 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 Known left hydro, with evaluation at [facility] 20years ago showing no obstruction. There is pneumomediastinum greater superiorly. There is trace right apical pneumothorax. There is prominent gas in the soft tissues of the right chest also extending posteriorly into the upper back as well as the inferior bilateral neck right greater than left. There is small dependent right pleural effusion, adjacent consolidation and atelectasis There is dilatation of the ascending thoracic aorta about 4.7 cm, no intraluminal flap seen [id number] left hydronephrosis and hydroureter, hydroureter to the level of the pelvis, more distal left ureter difficult to confidently visualize. PLAN PULM consult CTS consult urology consult reviewed Mag 3 with lasix scan to check left hydroureter, chronic. 11/09 ua renal sono eval hydronephrosis keep in icu DVT prophylaxis ECHO CHEST TUBE d/c today, see DR WANG NEXT WEEK WITH CXR 34 min D/C PLANNING time Vitals Vitals Vital Signs Date Time Temp Pulse Resp B/P (MAP) Pulse Ox O2 Delivery O2 Flow Rate FiO2 11/10/18 09:16 20 95 Room Air 11/10/18 07:45 2.0 11/10/18 07:00 97.9 75 113/61 (78) 97.9 Physical Exam General: Alert, Oriented X3, Cooperative, No acute distress Heart: Regular rate, Normal S1, Normal S2 Lungs: Clear Abdomen: Soft, No tenderness Extremities: Normal pulses Skin: No significant lesion Assessment and Plan Assessmemt and Plan Problems Medical Problems: (1) Rib fractures Status: Acute Comment Review of Relevant I have reviewed the following items toyin (where applicable) has been applied. Labs Laboratory Tests Test 11/09/18 03:55 White Blood Count 11.9 x10^3/uL (4.0-11.0) Red Blood Count 4.19 x10^6/uL (4.30-5.70) Hemoglobin 12.8 g/dL (13.0-17.5) Hematocrit 38.8 % (39.0-53.0) Mean Corpuscular Volume 93 fL (79-100) Mean Corpuscular Hemoglobin 31 pg (25-35) Mean Corpuscular Hemoglobin Concent 33 g/dL (31-37) Red Cell Distribution Width 13.9 % (11.5-14.5) Platelet Count 252 x10^3/uL (140-400) Neutrophils (%) (Auto) 73 % (31-73) Lymphocytes (%) (Auto) 13 % (24-48) Monocytes (%) (Auto) 12 % (0-9) Eosinophils (%) (Auto) 2 % (0-3) Basophils (%) (Auto) 1 % (0-3) Neutrophils # (Auto) 8.6 x10^3uL (1.8-7.7) Lymphocytes # (Auto) 1.6 x10^3/uL (1.0-4.8) Monocytes # (Auto) 1.4 x10^3/uL (0.0-1.1) Eosinophils # (Auto) 0.3 x10^3/uL (0.0-0.7) Basophils # (Auto) 0.1 x10^3/uL (0.0-0.2) Sodium Level 140 mmol/L (136-145) Potassium Level 3.7 mmol/L (3.5-5.1) Chloride Level 102 mmol/L (98-107) Carbon Dioxide Level 27 mmol/L (21-32) Anion Gap 11 (6-14) Blood Urea Nitrogen 8 mg/dL (8-26) Creatinine 0.8 mg/dL (0.7-1.3) Estimated GFR (Cockcroft-Gault) 98.6 Glucose Level 123 mg/dL (70-99) Calcium Level 8.5 mg/dL (8.5-10.1) Medications Current Medications Sodium Chloride 500 ml @ 500 mls/hr 1X ONCE IV Last administered on at 20:02; Start 11/06/18 at 19:45; Stop 11/06/18 at 20:44; Status DC Fentanyl Citrate (Fentanyl 2ml Vial) 50 mcg 1X ONCE IV Last administered on at 20:32; Start 11/06/18 at 19:45; Stop 11/06/18 at 19:46; Status DC Ketamine HCl (Ketamine) 50 mg 1X ONCE IV Last administered on 11/06/18 20:15 ; Start 11/06/18 at 20:00; Stop 11/06/18 at 20:01; Status DC Lidocaine HCl 20 ml STK-MED ONCE .ROUTE ; Start 11/06/18 at 20:18; Stop at 20:19; Status DC Sodium Chloride 1,000 ml @ 1,000 mls/hr 1X ONCE IV Last administered on at 20:14; Start 11/06/18 at 21:00; Stop 11/06/18 at 21:59; Status DC Lidocaine HCl 40 ml 1X ONCE IJ Last administered on 11/06/18at 20:16; Start at 21:15; Stop 11/06/18 at 21:16; Status DC Ondansetron HCl (Zofran) 4 mg PRN Q8HRS PRN IV NAUSEA/VOMITING; Start 11/06/18 at 22:15; Stop 11/07/18 at 11:54; Status DC Morphine Sulfate (Morphine Sulfate) 4 mg PRN Q2HR PRN IV PAIN Last administered on 11/07/18 07:47; Start 11/06/18 at 22:15; Stop 11/07/18 at 12:05 ; Status DC Sodium Chloride 1,000 ml @ 75 mls/hr [id number] IV Last administered on at 12:08; Start 11/06/18 at 22:15; Stop 11/07/18 at 22:14; Status DC Iohexol (Omnipaque 240 Mg/ml) 30 ml 1X ONCE PO Last administered on 11/07/18at 10:30; Start 11/07/18 at 09:00; Stop 11/07/18 at 09:01; Status DC Iohexol (Omnipaque 300 Mg/ml) 75 ml 1X ONCE IV Last administered on 11/07/18 10:30; Start 11/07/18 at 09:00; Stop 11/07/18 at 09:01; Status DC Docusate Sodium (Colace) 100 mg DAILY PO Last administered on 11/10/18 08:16; Start 11/07/18 at 13:00 Ondansetron HCl (Zofran) 4 mg PRN Q6HRS PRN IV NAUSEA/VOMITING; Start 11/07/18 at 12:00 Acetaminophen/ Hydrocodone Bitart (Lortab 7.5/325) 1 tab PRN Q6HRS PRN PO PAIN Last administered on 11/10/18 08:16; Start 11/07/18 at 12:00 Polyethylene Glycol (miraLAX PACKET) 17 gm DAILY PO ; Start 11/07/18 at 13:00; Stop 11/08/18 at 18:12; Status DC Enoxaparin Sodium (Lovenox 40mg Syringe) 40 mg Q24H SQ Last administered on 12:16; Start 11/07/18 at 13:00 Pantoprazole Sodium (Protonix) 40 mg DAILYAC PO Last administered on 11/10/18 08:15; Start 11/07/18 at 13:00 Fentanyl Citrate (Fentanyl 2ml Vial) 25 mcg PRN Q2HR PRN IV PAIN Last administered on 11/08/18 16:07; Start 11/07/18 at 12:00 Albuterol/ Ipratropium (Duoneb) 3 ml RTQID NEB Last administered on 11/10/18 07:43; Start 11/07/18 at 13:00 Iohexol (Omnipaque 300 Mg/ml) 400 ml 1X ONCE PO Last administered on 13:00; Start 11/07/18 at 13:00; Stop 11/07/18 at 13:01; Status DC Polyethylene Glycol (miraLAX PACKET) 17 gm PRN DAILY PRN PO CONSTIPATION; Start 11/08/18 at 18:15 Sodium Chloride 1,000 ml @ 1,000 mls/hr Q1H IV Last administered on 11/09/18 14:03; Start 11/09/18 at 13:00; Stop 11/09/18 at 15:21; Status DC Sodium Chloride 1,000 ml @ 125 mls/hr 1X ONCE IV ; Start 11/09/18 at 13:00; Stop 11/09/18 at 20:59; Status UNV Acetaminophen (Tylenol) 650 mg PRN Q6HRS PRN PO Pain Last administered on at 23:29; Start 11/09/18 at 23:30 Vitals/I & O Vital Sign - Last 24 Hours 11/09/18 11/09/18 11/09/18 11/09/18 11:00 12:00 12:13 12:15 Pulse 84 108 Resp 30 30 B/P (MAP) 97/64 (75) 97/61 (73) Pulse Ox 95 94 95 O2 Delivery Nasal Cannula Nasal Cannula Nasal Cannula Nasal Cannula O2 Flow Rate 1.0 1.0 1.0 11/09/18 11/09/18 11/09/18 11/09/18 13:00 13:34 15:29 16:00 Pulse 86 86 Resp 16 B/P (MAP) 110/63 (79) 102/63 (76) Pulse Ox 95 92 96 96 O2 Delivery Nasal Cannula Room Air Room Air Nasal Cannula O2 Flow Rate 1.0 11/09/18 11/09/18 11/09/18 11/09/18 17:25 18:28 19:25 19:30 Temp 99.0 101.3 99.0 101.3 Pulse 103 Resp 24 20 B/P (MAP) 119/71 (87) 109/60 (76) Pulse Ox 89 92 O2 Delivery Room Air Nasal Cannula Room Air Nasal Cannula O2 Flow Rate 2.0 11/09/18 11/09/18 11/10/18 11/10/18 19:46 23:00 01:05 02:05 Temp 102.1 102.1 Pulse 103 Resp 18 B/P (MAP) 112/58 (76) Pulse Ox 92 88 O2 Delivery Room Air Room Air Nasal Cannula O2 Flow Rate 2.0 2.0 11/10/18 11/10/18 11/10/18 11/10/18 03:00 04:43 07:00 07:45 Temp 98.2 97.9 98.2 97.9 Pulse 71 74 75 Resp 20 18 B/P (MAP) 105/63 (77) 113/61 (78) Pulse Ox 98 90 95 O2 Delivery Nasal Cannula Room Air Nasal Cannula O2 Flow Rate 2.0 2.0 11/10/18 11/10/18 11/10/18 08:00 08:16 09:16 Resp 20 20 Pulse Ox 95 95 O2 Delivery Room Air Room Air Room Air Intake and Output 11/09/18 11/09/18 11/10/18 15:00 23:00 07:00 Intake Total 200 ml 700 ml Output Total 425 ml 100 ml Balance -225 ml -100 ml 700 ml MARYAN MESSINA MD Nov 10, 2018 10:55
[2018-11-10 11:00] VITALS: BP 96/89
[2018-11-10] MEDS: ENOXAPARIN 40 MG/0.4 ML SYRINGE. SQ SCH (12:15)
[2018-11-10 15:00] VITALS: BP 102/62
--- NOTE | 2018-11-10 15:07 | PDOC3 ---
Discharge Summary Date of Admission: Nov 07, 2018 Date of Discharge: Nov 10, 2018 Follow-Up: 3-5 days Admitting Diagnosis comment: DISCHARGE DX History of Present Illness Assessment/Plan Assessment/Plan Assessment/Plan R PTX, rib fx, multiple Similar positioning of a right-sided thoracostomy tube. No residual pneumothorax is identified. There is similar degree of subcutaneous emphysema. 11/09 on cxr pneumomediastinum No esophageal leak was identified. 11/08 UGI barium swallow hydronephrosis hypotension, prob volume depleted There is [id number] left hydroureteronephrosis, no obstructive calculus, distal ureter in the pelvis difficult to visualize. Distal obstructing ureteral mass or stricture are considerations. 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 Known left hydro, with evaluation at [facility] 20years ago showing no obstruction. There is pneumomediastinum greater superiorly. There is trace right apical pneumothorax. There is prominent gas in the soft tissues of the right chest also extending posteriorly into the upper back as well as the inferior bilateral neck right greater than left. There is small dependent right pleural effusion, adjacent consolidation and atelectasis There is dilatation of the ascending thoracic aorta about 4.7 cm, no intraluminal flap seen [id number] left hydronephrosis and hydroureter, hydroureter to the level of the pelvis, more distal left ureter difficult to confidently visualize. PLAN PULM consult CTS consult urology consult reviewed Mag 3 with lasix scan to check left hydroureter, chronic. 11/09 ua renal sono eval hydronephrosis keep in icu DVT prophylaxis ECHO CHEST TUBE d/c today, see DR HURTADO NEXT WEEK WITH CXR 34 min D/C PLANNING time Vitals Vitals Vital Signs Date Time Temp Pulse Resp B/P (MAP) Pulse Ox O2 Delivery O2 Flow Rate FiO2 11/10/18 09:16 20 95 Room Air 11/10/18 07:45 2.0 11/10/18 07:00 97.9 75 113/61 (78) 97.9 Physical Exam General: Alert, Oriented X3, Cooperative, No acute distress Heart: Regular rate, Normal S1, Normal S2 Lungs: Clear Abdomen: Soft, No tenderness Extremities: Normal pulses Skin: No significant lesion FINAL DIAGNOSIS Problems Medical Problems: (1) Rib fractures Status: Acute Brief Hospital Course Mr. Mcconnell is a 58 old [sex] who presented with [TRAUMATIC PNEUMOTHORAX ] CONDITION AT DISCHARGE: Improved Discharge Medications Current Medications Sodium Chloride 500 ml @ 500 mls/hr 1X ONCE IV Last administered on 20:02; Start 11/06/18 at 19:45; Stop 11/06/18 at 20:44; Status DC Fentanyl Citrate (Fentanyl 2ml Vial) 50 mcg 1X ONCE IV Last administered on at 20:32; Start 11/06/18 at 19:45; Stop 11/06/18 at 19:46; Status DC Ketamine HCl (Ketamine) 50 mg 1X ONCE IV Last administered on 11/06/18 20:15 ; Start 11/06/18 at 20:00; Stop 11/06/18 at 20:01; Status DC Lidocaine HCl 20 ml STK-MED ONCE .ROUTE ; Start 11/06/18 at 20:18; Stop at 20:19; Status DC Sodium Chloride 1,000 ml @ 1,000 mls/hr 1X ONCE IV Last administered on 20:14; Start 11/06/18 at 21:00; Stop 11/06/18 at 21:59; Status DC Lidocaine HCl 40 ml 1X ONCE IJ Last administered on 11/06/18 20:16; Start at 21:15; Stop 11/06/18 at 21:16; Status DC Ondansetron HCl (Zofran) 4 mg PRN Q8HRS PRN IV NAUSEA/VOMITING; Start 11/06/18 at 22:15; Stop 11/07/18 at 11:54; Status DC Morphine Sulfate (Morphine Sulfate) 4 mg PRN Q2HR PRN IV PAIN Last administered on 11/07/18 07:47; Start 11/06/18 at 22:15; Stop 11/07/18 at 12:05 ; Status DC Sodium Chloride 1,000 ml @ 75 mls/hr [id number] IV Last administered on at 12:08; Start 11/06/18 at 22:15; Stop 11/07/18 at 22:14; Status DC Iohexol (Omnipaque 240 Mg/ml) 30 ml 1X ONCE PO Last administered on 3/23/19at 10:30; Start 11/07/18 at 09:00; Stop 11/07/18 at 09:01; Status DC Iohexol (Omnipaque 300 Mg/ml) 75 ml 1X ONCE IV Last administered on 11/07/18 10:30; Start 11/07/18 at 09:00; Stop 11/07/18 at 09:01; Status DC Docusate Sodium (Colace) 100 mg DAILY PO Last administered on 11/10/18 08:16; Start 11/07/18 at 13:00 Ondansetron HCl (Zofran) 4 mg PRN Q6HRS PRN IV NAUSEA/VOMITING; Start 11/07/18 at 12:00 Acetaminophen/ Hydrocodone Bitart (Lortab 7.5/325) 1 tab PRN Q6HRS PRN PO MODERATE-SEVERE PAIN Last administered on 11/10/18 08:16; Start 11/07/18 at 12: 00 Polyethylene Glycol (miraLAX PACKET) 17 gm DAILY PO ; Start 11/07/18 at 13:00; Stop 11/08/18 at 18:12; Status DC Enoxaparin Sodium (Lovenox 40mg Syringe) 40 mg Q24H SQ Last administered on 12:16; Start 11/07/18 at 13:00 Pantoprazole Sodium (Protonix) 40 mg DAILYAC PO Last administered on 11/10/18 08:15; Start 11/07/18 at 13:00 Fentanyl Citrate (Fentanyl 2ml Vial) 25 mcg PRN Q2HR PRN IV PAIN Last administered on 11/08/18 16:07; Start 11/07/18 at 12:00 Albuterol/ Ipratropium (Duoneb) 3 ml RTQID NEB Last administered on 11/10/18 12:47; Start 11/07/18 at 13:00 Iohexol (Omnipaque 300 Mg/ml) 400 ml 1X ONCE PO Last administered on 13:00; Start 11/07/18 at 13:00; Stop 11/07/18 at 13:01; Status DC Polyethylene Glycol (miraLAX PACKET) 17 gm PRN DAILY PRN PO CONSTIPATION; Start 11/08/18 at 18:15 Sodium Chloride 1,000 ml @ 1,000 mls/hr Q1H IV Last administered on 11/09/18at 14:03; Start 11/09/18 at 13:00; Stop 11/09/18 at 15:21; Status DC Sodium Chloride 1,000 ml @ 125 mls/hr 1X ONCE IV ; Start 11/09/18 at 13:00; Stop 11/09/18 at 20:59; Status UNV Acetaminophen (Tylenol) 650 mg PRN Q6HRS PRN PO MILD Pain Last administered on 11/09/18at 23:29; Start 11/09/18 at 23:30 Vital Signs Vital Signs Date Time Temp Pulse Resp B/P (MAP) Pulse Ox O2 Delivery O2 Flow Rate FiO2 11/10/18 12:47 Room Air 11/10/18 11:00 98.6 81 18 96/89 (91) 93 98.6 11/10/18 07:45 2.0 Labs Laboratory Tests Test 11/09/18 03:55 White Blood Count 11.9 x10^3/uL (4.0-11.0) Red Blood Count 4.19 x10^6/uL (4.30-5.70) Hemoglobin 12.8 g/dL (13.0-17.5) Hematocrit 38.8 % (39.0-53.0) Mean Corpuscular Volume 93 fL (79-100) Mean Corpuscular Hemoglobin 31 pg (25-35) Mean Corpuscular Hemoglobin Concent 33 g/dL (31-37) Red Cell Distribution Width 13.9 % (11.5-14.5) Platelet Count 252 x10^3/uL (140-400) Neutrophils (%) (Auto) 73 % (31-73) Lymphocytes (%) (Auto) 13 % (24-48) Monocytes (%) (Auto) 12 % (0-9) Eosinophils (%) (Auto) 2 % (0-3) Basophils (%) (Auto) 1 % (0-3) Neutrophils # (Auto) 8.6 x10^3uL (1.8-7.7) Lymphocytes # (Auto) 1.6 x10^3/uL (1.0-4.8) Monocytes # (Auto) 1.4 x10^3/uL (0.0-1.1) Eosinophils # (Auto) 0.3 x10^3/uL (0.0-0.7) Basophils # (Auto) 0.1 x10^3/uL (0.0-0.2) Sodium Level 140 mmol/L (136-145) Potassium Level 3.7 mmol/L (3.5-5.1) Chloride Level 102 mmol/L (98-107) Carbon Dioxide Level 27 mmol/L (21-32) Anion Gap 11 (6-14) Blood Urea Nitrogen 8 mg/dL (8-26) Creatinine 0.8 mg/dL (0.7-1.3) Estimated GFR (Cockcroft-Gault) 98.6 Glucose Level 123 mg/dL (70-99) Calcium Level 8.5 mg/dL (8.5-10.1) Allergies Allergies Coded Allergies Type Severity Reaction Last Updated Verified No Known Drug Allergies 11/06/18 No Disposition/Orders: D/C to Home Patient Instructions D/C PLANNING 37 MIN MARYAN MESSINA MD Nov 10, 2018 15:07
[2018-11-10] MEDS ORDERED: Pantoprazole PO (15:10)
[2018-11-10] MEDS ORDERED: DOCU-109 PO (15:10)
[2018-11-10] MEDS ORDERED: POLY17PO28 PO (15:10)
[2018-11-10] MEDS ORDERED: IPRA3AMP29 NEB (15:10)
[2018-11-10] MEDS ORDERED: HYDR-2765 PO (15:10)
--- NOTE | 2018-11-10 15:14 | DISCH ---
DISCHARGE INSTRUCTIONS Condition on Discharge Condition on Discharge: Stable Activity After Discharge Activity Instructions for Disc: Activity as tolerated Bathing Instructions: Shower-keep dressing dry Lifting Instructions after Dis: No heavy lifting, No pulling or pushing Exercise Instruction after Dis: Walk 10 min, 3 x per day Driving Instructions after Dis: Do not drive Diet after Discharge Diet after Discharge: Regular Contacting the DR. after DC Call your doctor for: If your condition worsens MARYAN MESSINA MD Nov 10, 2018 15:14
--- NOTE | 2018-11-10 15:32 | NUR ---
SS following for discharge planning. Discharge order on chart. SS received script for nebulizer. SS phoned and faxed script and referral to [facility], ; fax [phone]. [facility] confirmed that order was received and requested that pt contact them when he arrives home to schedule delivery. Pt's RN notified.
--- NOTE | 2018-11-10 16:49 | NUR ---
Discharge teaching provided written and verbal to pt,understanding verbalized. Pt dismissed to home with all belongings accompanied by his . Transported to exit per w/c @ 1640.
== END 2018-11-10 16:40 | disposition home or self-care (01) | DRG 199 ==
LOC: EDBD 19:18 → ER 19:18 → 2 NORTH 20:50 → 1 WEST ICU 21:23 → 2 NORTH 11-09 17:26
PROVIDERS: ADMIT Internal Medicine; ATTEND Internal Medicine
PROC: 0W9930Z Drainage of Right Pleural Cavity with Drainage Device, Percutaneous Approach (ICD-10-PCS; principal; 2018-11-06)
DX: S27.0XXA Traumatic pneumothorax, initial encounter (principal); J96.00 Acute respiratory failure, unspecified whether with hypoxia or hypercapnia; J90 Pleural effusion, not elsewhere classified; S22.41XA Multiple fractures of ribs, right side, initial encounter for closed fracture; S27.329A Contusion of lung, unspecified, initial encounter; N13.30 Unspecified hydronephrosis; J98.11 Atelectasis; T79.7XXA Traumatic subcutaneous emphysema, initial encounter; F17.210 Nicotine dependence, cigarettes, uncomplicated; I71.2 Thoracic aortic aneurysm, without rupture; M43.06 Spondylolysis, lumbar region; M47.9 Spondylosis, unspecified; I95.9 Hypotension, unspecified; M51.36 Other intervertebral disc degeneration, lumbar region; N32.89 Other specified disorders of bladder; W11.XXXA Fall on and from ladder, initial encounter; Y99.0 Civilian activity done for income or pay; Y92.89 Other specified places as the place of occurrence of the external cause; Z79.899 Other long term (current) drug therapy
CPT/HCPCS: 36415; 71045; 71260; 74177; 74220; 76770; 80048; 80053; 81001; 82550; 85025; 85610; 86850; 86900; 86901; 87641; 93306; 94640; 94760; 96361; 96374; 96375; J1650; J2001; J2270; J3010; J7030; J7040; J7620; Q9966; Q9967; 99285-25

== ENCOUNTER → 2018-11-17 | Outpatient (CLI) | payer OTHER ==
[2018-11-10 15:00] VITALS: BP 102/62
[~2018-11-17] MED LIST: DOCU-109 PO; HYDR-2765 PO; IPRA3AMP29 NEB; POLY17PO28 PO; Pantoprazole PO
--- NOTE | 2018-11-17 16:42 | RAD ---
EXAM: PA and Lateral Views of the Chest DATE: 11/17/2018 12:00 AM INDICATION: out patient. post pneumonthorax. hX pneumonthorax, right rib fracture. prior xray COMPARISON: 11/04/2018, 11/09/2018 FINDINGS/ IMPRESSION: Multiple right rib fractures are seen. No definite pneumothorax. Right lung base parenchymal opacities, possibly small pleural effusion, atelectasis or contusion given recent trauma. Cardiomediastinal silhouette is stable. Electronically signed by: Andre Acuna MD (11/17/2018 4:39 PM) [id number]
== END | disposition home or self-care (01) ==
LOC: RAD 14:26
PROVIDERS: ATTEND Internal Medicine Pulmonary Disease
DX: S22.41XA Multiple fractures of ribs, right side, initial encounter for closed fracture (principal); X58.XXXA Exposure to other specified factors, initial encounter; Y93.89 Activity, other specified; Y92.89 Other specified places as the place of occurrence of the external cause; Y99.8 Other external cause status
CPT/HCPCS: 71046